=== PATIENT | male | born 1935 | race African-American/Black ===

== ENCOUNTER 2018-09-22 09:00 | Outpatient (CLI) | payer MEDICARE, MEDICAID | END 2018-09-22 23:59 | disposition home or self-care (01) | LOC: LAB.N 09:00 | PROVIDERS: ATTEND Nurse Practitioner | DX: Z12.11 Encounter for screening for malignant neoplasm of colon (principal) | CPT/HCPCS: 82274 ==

== ENCOUNTER 2018-11-08 09:29 | Outpatient (CLI) | payer MEDICARE, MEDICAID | END 2018-11-08 09:30 | disposition critical access hospital (66) | LOC: EMS 09:29 | PROVIDERS: ATTEND Surgery | DX: R06.02 Shortness of breath (principal); R05 Cough | CPT/HCPCS: A0425; A0429 ==

== ENCOUNTER 2018-11-08 09:47 | Emergency (ER) | payer MEDICARE, MEDICAID ==
[2018-11-08] MEDS ORDERED: IPRATROPIUM/ALBUTEROL 3 ML NEB INH STA (09:51)
[2018-11-08] MEDS ORDERED: predniSONE 20 MG TABLET PO STA (09:52)
--- NOTE | 2018-11-08 10:15 | ED Physician Documentation ---
PD HPI DYSPNEA - Stated complaint Stated Complaint: SOA - Chief complaint Chief Complaint: Resp - History obtained from History obtained from: Patient, EMS - History of Present Illness Timing - onset: How many days ago (2) Timing - onset during: Rest Timing - duration: Days (2) Timing - details: Gradual onset Pain level max: 0 Pain level now: 0 Inciting event(s): URI Improved by: O2, Inhaler/neb Worsened by: Exertion, Coughing Associated symptoms: Cough, Wheezing. No: Fever, Hemoptysis, Chest pain / discomfort, Palpitations, Diaphoresis Similar symptoms before: Diagnosis (Pneumonia) Recently seen: Not recently seen - Additional information Additional information: 82-year-old male with a history of COPD who presents to the emergency department with wheezing and difficulty breathing for the past 2 days. Has not had a fever but has had increased coughing. Clear sputum. Feels better after a DuoNeb treatment with EMS. Review of Systems Ten Systems: 10 systems reviewed and negative Constitutional: denies: Fever Nose: reports: Rhinorrhea / runny nose, Congestion GI: denies: Vomiting, Diarrhea Skin: denies: Rash Musculoskeletal: denies: Neck pain, Back pain Neurologic: denies: Headache PD PAST MEDICAL HISTORY - Past Medical History Past Medical History: Yes Cardiovascular: Hypertension Respiratory: COPD Endocrine/Autoimmune: Type 2 diabetes - Past Surgical History Past Surgical History: No - Present Medications Home Medications: Ambulatory Orders Medication Instructions Recorded Confirmed Doxycycline Hyclate 100 mg PO BID #20 capsule 11/08/18 predniSONE [Deltasone] 10 mg PO [id number] #42 tab 11/08/18 - Allergies Allergies/Adverse Reactions: Allergies Allergy/AdvReac Type Severity Reaction Status Date / Time No Known Drug Allergies Allergy Verified 11/08/18 09:55 - Social History Does the pt smoke?: No Smoking Status: Never smoker Does the pt drink ETOH?: Yes Does the pt have substance abuse?: No - Immunizations Immunizations are current?: No - POLST Patient has POLST: No PD ED PE NORMAL - Vitals Vital signs reviewed: Yes - General General: Alert and oriented X 3, No acute distress - HEENT HEENT: Moist mucous membranes - Neck Neck: Supple, no meningeal sign - Cardiac Cardiac: RRR - Respiratory Respiratory: Other (Bibasilar rhonchi, diffuse wheezing) - Abdomen Abdomen: Soft, Non tender, Non distended - Derm Derm: Warm and dry - Extremities Extremities: No calf tenderness / cord - Neuro Neuro: Alert and oriented X 3 Results - Vitals Vitals: Vital Signs - 24 hr 11/08/18 11/08/18 11/08/18 09:51 10:17 11:25 Temperature 36.4 C L Heart Rate 79 78 77 Respiratory 16 20 14 Rate Blood Pressure 138/88 H 130/82 H O2 Saturation 99 95 Oxygen O2 Source Room air - Rads (name of study) Chest x-ray Radiology: Prelim report reviewed, EMP read contemporaneously, See rad report (Mild groundglass and linear opacity at the lung bases, suggesting a combination of atelectasis, scarring, and/or pneumonia in the proper settings. Superimposed small amount of bronchial wall thickening may reflect airways disease. Mild enlarged cardiac silhouette size. ) PD MEDICAL DECISION MAKING - ED course Complexity details: reviewed results, re-evaluated patient, considered differential, d/w patient, d/w family ED course: 82-year-old male with what appears to be a COPD flare/likely superimposed early pneumonia on chest x-ray. Will place on doxycycline. Given steroids. Feels much better after nebulizer treatment. Speaking in full sentences. No respiratory distress. Mild wheezing. Patient is comfortable going home at this time. Patient and family counseled regarding signs and symptoms for which I believe and urgent re-evaluation would be necessary. Patient with good understanding of and agreement to plan and is comfortable going home at this time This document was made in part using voice recognition software. While efforts are made to proofread this document, sound alike and grammatical errors may occur. Departure - Departure Disposition: 01 Home, Self Care Clinical Impression: Moderate COPD (chronic obstructive pulmonary disease) Pneumonia Qualifiers: Pneumonia type: due to unspecified organism Laterality: bilateral Lung location: lower lobe of lung Qualified Code(s): J18.1 - Lobar pneumonia, un specified organism Condition: Good Instructions: ED COPD Flare, ED Pneumonia Adult Follow-Up: Hattie Malone DNP [Primary Care Provider] - Within 1 week Prescriptions: Doxycycline Hyclate 100 mg PO BID #20 capsule predniSONE [Deltasone] 10 mg PO [id number] #42 tab Comments: Take all antibiotics until gone. Return if you worsen. Follow-up with your doctor for further evaluation and care. Discharge Date/Time: 12/22/18 11:42
--- NOTE | 2018-11-08 10:54 | XRAY Report ---
Reason: cough, dyspnea Procedure Date: 11/08/2018 Accession Number: [id number] / [id number] Procedure: XR - Chest 2 View X-Ray CPT Code: 99164 FULL RESULT: EXAM: CHEST RADIOGRAPHY EXAM DATE: 11/08/2018 10:11 AM. CLINICAL HISTORY: Cough, dyspnea. COMPARISON: None. TECHNIQUE: 2 views. FINDINGS: Lungs/Pleura: Mild groundglass and linear opacity at the lung bases. Small amount of bronchial wall thickening may be superimposed. No pleural effusion. No pneumothorax. Mediastinum: Cardiac silhouette size appears mildly enlarged. Other: None. IMPRESSION: 1. Mild groundglass and linear opacity at the lung bases, suggesting a combination of atelectasis, scarring, and/or pneumonia in the proper settings. Superimposed small amount of bronchial wall thickening may reflect airways disease. 2. Mild enlarged cardiac silhouette size. RADIA
[2018-11-08] MEDS ORDERED: DOXYCYCLINE 100 MG TABLET PO STA (11:15)
[2018-11-08 11:42] VITALS: BP 130/82
== END 2018-11-08 11:42 | disposition home or self-care (01) ==
LOC: EDUNIT# → ED 09:47
DX: J44.9 Chronic obstructive pulmonary disease, unspecified (principal); J18.1 Lobar pneumonia, unspecified organism; I10 Essential (primary) hypertension; E11.9 Type 2 diabetes mellitus without complications
CPT/HCPCS: 71046; 94640; 99283; 99284; A9270; J7512

== ENCOUNTER 2019-01-20 08:09 | Outpatient (CLI) | payer MEDICARE, MEDICAID ==
[2019-01-20 14:32] LABS: BASOPHILS % (AUTO) 0.6 %; EOSINOPHILS # (AUTO) 0.1 10^3/uL (0.0-0.7); EOSINOPHILS % (AUTO) 1.4 %; HGB - HEMOGLOBIN 14.2 g/dL (14.0-18.0); LYMPHOCYTES # (AUTO) 1.6 10^3/uL (1.5-3.5); LYMPHOCYTES % (AUTO) 33.7 %; MEAN CORPUSCULAR HEMOGLOBIN 27.2 pg (27.0-31.0); MEAN CORPUSCULAR HGB CONC 32.4 g/dL (32.0-36.0); MEAN CORPUSCULAR VOLUME 84.1 fL (80.0-94.0); MEAN PLATELET VOLUME 10.3 fL (7.4-11.4); MONOCYTES # (AUTO) 0.8 10^3/uL (0.0-1.0); MONOCYTES % (AUTO) 17.8 %; NEUTROPHILS # (AUTO) 2.2 10^3/uL (1.5-6.6); NEUTROPHILS % (AUTO) 46.5 %; PLT - PLATELET COUNT 165 10^3/uL (130-450); RED BLOOD COUNT 5.21 10^6/uL (4.70-6.10); RED CELL DISTRIBUTION WIDTH 15.5 % (12.0-15.0); WHITE BLOOD COUNT 4.7 x10^3/uL (4.8-10.8)
[2019-01-20 17:05] LABS: ALBUMIN 4.2 g/dL (3.2-5.5); ALKALINE PHOSPHATASE 63 IU/L (42-121); ALT ALANINE AMINOTRANSFERASE 17 IU/L (10-60); AST ASPARTATE AMINOTRANSFERASE 21 IU/L (10-42); BUN - BLOOD UREA NITROGEN 26 mg/dL (6-20); CALCIUM 9.8 mg/dL (8.5-10.3); CARBON DIOXIDE - CO2 25 mmol/L (21-32); CHLORIDE 108 mmol/L (101-111); CHOL/HDL RATIO 3.2 (<5.0); CHOLESTEROL 156 mg/dL; CREATININE 1.2 mg/dL (0.6-1.2); GFR - MDRD 70 (>89); GLUCOSE 109 mg/dL (70-100); HDL CHOLESTEROL 49 mg/dL; LDL CHOLESTEROL,CALCULATED 89 mg/dL; LDL/HDL RATIO 1.8 (<3.6); SODIUM 143 mmol/L (135-145); TOTAL PROTEIN 8.3 g/dL (6.7-8.2); URIC ACID 8.8 mg/dL (2.6-7.2); VLDL CHOLESTEROL 18 mg/dL
[2019-01-20 17:29] LABS: HB2 TOTAL 15.5 g/dL; HEMOGLOBIN A1C 0.82 g/dL
== END 2019-01-20 23:59 | disposition home or self-care (01) ==
LOC: LAB.N 08:09
PROVIDERS: ATTEND Nurse Practitioner
DX: E11.40 Type 2 diabetes mellitus with diabetic neuropathy, unspecified (principal); I10 Essential (primary) hypertension; M1A.9XX0 Chronic gout, unspecified, without tophus (tophi)
CPT/HCPCS: 36415; 80053; 80061; 82043; 83036; 83721; 84443; 84550; 85025

== ENCOUNTER 2019-05-06 08:00 | Outpatient (CLI) | payer MEDICARE, MEDICAID ==
[2019-05-06 18:34] LABS: BASOPHILS % (AUTO) 0.7 %; EOSINOPHILS # (AUTO) 0.1 10^3/uL (0.0-0.7); EOSINOPHILS % (AUTO) 2.2 %; HGB - HEMOGLOBIN 13.3 g/dL (14.0-18.0); LYMPHOCYTES # (AUTO) 1.2 10^3/uL (1.5-3.5); LYMPHOCYTES % (AUTO) 27.1 %; MEAN CORPUSCULAR HEMOGLOBIN 26.7 pg (27.0-31.0); MEAN CORPUSCULAR HGB CONC 30.3 g/dL (32.0-36.0); MEAN PLATELET VOLUME 12.2 fL (7.4-11.4); MONOCYTES # (AUTO) 1.1 10^3/uL (0.0-1.0); MONOCYTES % (AUTO) 24.2 %; NEUTROPHILS % (AUTO) 45.4 %; PLT - PLATELET COUNT 166 10^3/uL (130-450); RED BLOOD COUNT 4.99 10^6/uL (4.70-6.10); RED CELL DISTRIBUTION WIDTH 14.1 % (12.0-15.0); WHITE BLOOD COUNT 4.5 x10^3/uL (4.8-10.8)
[2019-05-06 18:52] LABS: ALBUMIN 3.8 g/dL (3.2-5.5); ALBUMIN/GLOBULIN RATIO 0.9 (1.0-2.2); BILIRUBIN,TOTAL 0.7 mg/dL (0.2-1.0); CALCIUM 9.1 mg/dL (8.5-10.3); CREATININE 1.4 mg/dL (0.6-1.2); TOTAL PROTEIN 8.2 g/dL (6.7-8.2)
[2019-05-06 18:55] LABS: HB2 TOTAL 14.2 g/dL; HEMOGLOBIN A1C 0.68 g/dL; HEMOGLOBIN A1C % 6.5 % (4.6-6.2)
== END 2019-05-06 08:01 | disposition home or self-care (01) ==
LOC: LAB.WCP 08:00
PROVIDERS: ATTEND Physician Assistant
DX: E11.42 Type 2 diabetes mellitus with diabetic polyneuropathy (principal); I51.7 Cardiomegaly
CPT/HCPCS: 36415; 80053; 83036; 83880; 85025

== ENCOUNTER 2019-05-12 08:00 | Outpatient (CLI) | payer MEDICARE, MEDICAID ==
[2019-05-12 12:19] LABS: CALCIUM 9.1 mg/dL (8.5-10.3); CREATININE 1.6 mg/dL (0.6-1.2)
== END 2019-05-12 08:01 | disposition home or self-care (01) ==
LOC: LAB.N 08:00
PROVIDERS: ATTEND Nurse Practitioner Gerontology
DX: I51.7 Cardiomegaly (principal); R94.4 Abnormal results of kidney function studies; R60.9 Edema, unspecified; R06.00 Dyspnea, unspecified
CPT/HCPCS: 36415; 80048; 83880

== ENCOUNTER 2019-06-11 10:06 | Outpatient (CLI) | payer MEDICARE, MEDICAID ==
[2019-06-11 12:42] LABS: ALBUMIN 3.8 g/dL (3.2-5.5); ALBUMIN/GLOBULIN RATIO 0.9 (1.0-2.2); BILIRUBIN,TOTAL 0.7 mg/dL (0.2-1.0); CALCIUM 9.2 mg/dL (8.5-10.3); CREATININE 1.8 mg/dL (0.6-1.2)
== END 2019-06-11 23:59 | disposition home or self-care (01) ==
LOC: LAB.N 10:06
PROVIDERS: ATTEND Family Medicine
DX: R60.9 Edema, unspecified (principal)
CPT/HCPCS: 36415; 80053

== ENCOUNTER 2019-06-26 14:27 | Outpatient (CLI) | payer MEDICARE, MEDICAID ==
[2019-06-26 18:49] LABS: HGB - HEMOGLOBIN 14.3 g/dL (14.0-18.0); MEAN CORPUSCULAR HEMOGLOBIN 26.1 pg (27.0-31.0); MEAN CORPUSCULAR HGB CONC 30.3 g/dL (32.0-36.0); MEAN CORPUSCULAR VOLUME 86.1 fL (80.0-94.0); MEAN PLATELET VOLUME 12.5 fL (7.4-11.4); RED BLOOD COUNT 5.48 10^6/uL (4.70-6.10); RED CELL DISTRIBUTION WIDTH 13.6 % (12.0-15.0); WHITE BLOOD COUNT 4.1 x10^3/uL (4.8-10.8)
[2019-06-26 19:07] LABS: CALCIUM 9.6 mg/dL (8.5-10.3); CREATININE 1.7 mg/dL (0.6-1.2)
== END 2019-06-26 23:59 | disposition home or self-care (01) ==
LOC: LAB.N 14:27
PROVIDERS: ATTEND Family Medicine
DX: R60.9 Edema, unspecified (principal); R06.00 Dyspnea, unspecified; I10 Essential (primary) hypertension
CPT/HCPCS: 36415; 80048; 83880; 85027

== ENCOUNTER 2019-07-15 13:31 | Outpatient (CLI) | payer MEDICARE, MEDICAID ==
[~2019-07-15 13:31] MED LIST: ALBUTEROL NEB 2.5 MG/3 ML INH SCH
== END 2019-07-15 13:32 | disposition home or self-care (01) ==
LOC: RT 13:31
PROVIDERS: ATTEND Family Medicine
DX: J44.9 Chronic obstructive pulmonary disease, unspecified (principal)
CPT/HCPCS: 94060; 94729

== ENCOUNTER 2019-08-20 11:14 | Outpatient (CLI) | payer MEDICARE, MEDICAID ==
--- NOTE | 2019-08-20 12:05 | XRAY Report ---
Reason: leg pain, left Procedure Date: 08/20/2019 Accession Number: [id number] / [id number] Procedure: XRN - Femur 2V LT CPT Code: FULL RESULT: EXAM: LEFT FEMUR RADIOGRAPHY EXAM DATE: 08/20/2019 11:41 AM. CLINICAL HISTORY: Left leg pain and paresthesias. COMPARISON: None. TECHNIQUE: 2 views. FINDINGS: Bones: Normal. No fracture or bone lesion. Joints: Unremarkable left femur. Partial imaging of medial compartment and patellofemoral arthropathy of the left knee. Soft Tissues: Normal. No soft tissue swelling. IMPRESSION: No acute abnormality. RADIA
== END 2019-08-20 11:15 | disposition home or self-care (01) ==
LOC: DI.N 11:14
PROVIDERS: ATTEND Family Medicine
DX: M79.605 Pain in left leg (principal)

== ENCOUNTER 2019-12-24 08:00 | Outpatient (CLI) | payer MEDICARE, MEDICAID ==
[2019-12-24 13:05] LABS: CALCIUM 8.6 mg/dL (8.5-10.3); CREATININE 1.4 mg/dL (0.6-1.2)
[2019-12-24 13:13] LABS: CREATININE,URINE 31.8 mg/dL; HB2 TOTAL 13.6 g/dL; HEMOGLOBIN A1C 0.73 g/dL; HEMOGLOBIN A1C % 7.1 % (4.6-6.2); MICROALBUM/CREATININE RATIO,UR 12.6 ug/mg (<30.0); MICROALBUMIN,URINE 0.4 mg/dL (0-300.0)
== END 2019-12-24 23:59 | disposition home or self-care (01) ==
LOC: LAB.N 08:00
PROVIDERS: ATTEND Family Medicine
DX: E11.40 Type 2 diabetes mellitus with diabetic neuropathy, unspecified (principal)
CPT/HCPCS: 36415; 80048; 82043; 82570; 83036

== ENCOUNTER 2021-02-09 11:51 | Outpatient (CLI) | payer MEDICARE, MEDICAID ==
--- NOTE | 2021-02-10 17:18 | Ultrasound Report ---
PROCEDURE: Carotid Doppler Complete INDICATIONS: L SIDED NUMBNESS TECHNIQUE: Color and pulse Doppler interrogation was performed of both carotid systems, with image documentation and velocity measurements. COMPARISON: None available.. FINDINGS: Right side: Brachial blood pressure: 147/81 mm Hg. Common carotid artery peak systolic velocity: 90 cm/sec. Internal carotid artery peak systolic velocity: 62 cm/sec. Internal carotid artery end diastolic velocity: 5 cm/sec. External carotid artery peak systolic velocity: 70 cm/sec. ICA/CCA peak systolic ratio: 0.7 . Sims scale imaging description: Scattered plaque Percent internal carotid artery stenosis: Less than 50% stenosis . Vertebral artery: Flow direction is antegrade. Left side: Brachial blood pressure: 127/62 mm Hg. Common carotid artery peak systolic velocity: 68 cm/sec. Internal carotid artery peak systolic velocity: 64 cm/sec. Internal carotid artery end diastolic velocity: 20 cm/sec. External carotid artery peak systolic velocity: 84 cm/sec. ICA/CCA peak systolic ratio: 0.9 . Sims scale imaging description: Mild scattered plaque Percent internal carotid artery stenosis: Less than 50% . Vertebral artery: Flow direction is antegrade. IMPRESSION: Less than 50% bilateral internal carotid artery stenosis. The estimate of stenosis included in the report of the imaging study was calculated using the NASCET method Reviewed by: ANUSHKA Brizuela on 02/10/2021 5:17 PM PDT Approved by: Anurag Garcia MD on 02/10/2021 5:17 PM PDT Station ID: [id number]
== END 2021-02-09 11:52 | disposition home or self-care (01) ==
LOC: DI 11:51
PROVIDERS: ATTEND Internal Medicine
DX: R20.2 Paresthesia of skin (principal); R20.0 Anesthesia of skin; I65.23 Occlusion and stenosis of bilateral carotid arteries
CPT/HCPCS: 93880

== ENCOUNTER 2021-04-10 16:42 | Outpatient (CLI) | payer MEDICARE, MEDICAID | END 2021-04-10 16:43 | disposition home or self-care (01) | LOC: COV 16:42 | PROVIDERS: ATTEND Ophthalmology | DX: Z01.812 Encounter for preprocedural laboratory examination (principal); H25.812 Combined forms of age-related cataract, left eye; E11.9 Type 2 diabetes mellitus without complications; Z20.822 Contact with and (suspected) exposure to COVID-19 ==

== ENCOUNTER 2021-04-13 07:58 | Day surgery (SDC) | payer MEDICARE, MEDICAID ==
[~2021-04-13 07:58] MED LIST changes: -ALBUTEROL NEB 2.5 MG/3 ML INH SCH; +KETOROLAC 0.45% OPHTH DROPS ONE; +PROPARACAINE 0.5% OPHTH DROPS 15 ML ONE
[2021-04-13] MEDS ORDERED: LACTATED RINGERS 500 ML IV ONE ×2 (08:06→09:42)
[2021-04-13] MEDS ORDERED: PHENYLEPHRINE 2.5% OPHTH 2 ML DROPS LEFTEYE ONE (08:21)
[2021-04-13] MEDS ORDERED: CYCLOPENTOLATE 2% OPHTH DROPS 2 ML LEFTEYE ONE (08:21)
[2021-04-13] MEDS ORDERED: TRIAMCIN/MOXIFLOX OPHTHALMIC 0.6 ML VIAL IO ONE ×2 (08:25→09:30)
[2021-04-13] MEDS ORDERED: VANCOMYCIN OPHTHALMI 8MG/0.8ML 8 MG/0.8 ML SYRINGE IO ONE ×2 (08:26→09:30)
[2021-04-13] MEDS ORDERED: TIMOLOL 0.5% OPHTH DROPS ONE (08:26)
[2021-04-13] MEDS ORDERED: BRIMONIDINE 0.2% OPHTH DROPS 5 ML ONE (08:26)
[2021-04-13] MEDS ORDERED: EPINEPHrine 1 MG/ML AMP ONE (08:26)
[2021-04-13] MEDS ORDERED: BSS/LIDOCAINE/EPINEPHRINE 1 ML SYRINGE ONE (08:26)
--- NOTE | 2021-04-13 08:38 | ANESTHESIA ---
Pre-Anesthesia VS, & Labs - Diagnosis L senile combined cataract - Procedure L extraction cataract w/IOL Vital Signs: Temp Pulse Resp BP Pulse Ox 36.2 C L 111 H 16 129/79 95 04/13/21 08:07 04/13/21 08:07 04/13/21 08:07 04/13/21 08:07 04/13/21 08:07 Height: 5 ft 6 in Weight (kg): 113 kg Body Mass Index: 40.1 BMI Classification: Morbidly Obese - NPO >8 hours - Lab Results Lab results reviewed: Yes Home Medications and Allergies Home Medications: Ambulatory Orders Albuterol 2.5 mg INH Q4H PRN 04/12/21 Albuterol Sulfate [Proair Respiclick] 90 mcg IH PRN PRN 04/12/21 Doxazosin [Cardura] 1 mg PO DAILY 04/12/21 Furosemide [Lasix] 04/12/21 Gabapentin [Neurontin] 100 mg PO ONCE 04/12/21 Rivaroxaban [Xarelto] 15 mg PO DAILY 04/12/21 Verapamil HCl [Calan Sr] 240 mg PO DAILY 04/12/21 allopurinoL [Zyloprim] 100 mg PO DAILY 04/12/21 metFORMIN [Glucophage] 04/12/21 Albuterol 2.5 mg INH Q4H PRN 04/12/21 Albuterol Sulfate [Proair Respiclick] 90 mcg IH PRN PRN 04/12/21 Doxazosin [Cardura] 1 mg PO DAILY 04/12/21 Furosemide [Lasix] 04/12/21 Gabapentin [Neurontin] 100 mg PO ONCE 04/12/21 Rivaroxaban [Xarelto] 15 mg PO DAILY 04/12/21 Verapamil HCl [Calan Sr] 240 mg PO DAILY 04/12/21 allopurinoL [Zyloprim] 100 mg PO DAILY 04/12/21 metFORMIN [Glucophage] 04/12/21 Allergies/Adverse Reactions: Allergies Allergy/AdvReac Type Severity Reaction Status Date / Time No Known Drug Allergies Allergy Verified 11/08/18 09:55 Anes History & Medical History - Anesthetic History Anesthesia Complications: reports: No previous complications Family history of Anesthesia Complications: Denies Family history of Malignant Hyperthermia: Denies - Medical History Cardiovascular: reports: Hypertension Pulmonary: reports: COPD Gastrointestinal: reports: None Urinary: reports: None Musculoskeletal: reports: None Endocrine/Autoimmune: reports: Type 2 diabetes Skin: reports: None Smoking Status: Never smoker - Surgical History Cardiothoracic: reports: Cardiac catheterization Exam General: Alert, Oriented x3, Cooperative Dental: Other Mouth Openin Fingerbreadth Neck Mobility: Normal Mallampati classification: II Thyromental Distance: 4-6 cm Respiratory: Decreased breath sounds Cardiovascular: Other (irregular) Mental/Cognitive Status: Alert/Oriented X3, Normal for patient Cognitive Status: Within normal limits Plan Anesthesia Type: MAC (awaiting EKG for case to proceed) Consent for Procedure(s) Verified and Reviewed: Yes Code Status: Attempt Resuscitation ASA classification: 3-Severe systemic disease Is this case an emergency?: No
[2021-04-13] MEDS ORDERED: CHONDR SULF/HYALURONATE SYRINGE IO ONE (09:29)
[2021-04-13] MEDS ORDERED: BRIMONIDINE 0.2% OPHTH DROPS 5 ML OPTH ONE (09:29)
[2021-04-13] MEDS ORDERED: TIMOLOL 0.5% OPHTH DROPS OPTH ONE (09:29)
[2021-04-13] MEDS ORDERED: EPINEPHrine 1 MG/ML AMP IR ONE (09:29)
[2021-04-13] MEDS ORDERED: PROPARACAINE 0.5% OPHTH DROPS 15 ML EACHEYE ONE (09:30)
[2021-04-13] MEDS ORDERED: BSS/LIDOCAINE/EPINEPHRINE 1 ML SYRINGE IO ONE (09:30)
--- NOTE | 2021-04-13 09:49 | OPERATIVE REPORT ---
Operative Report - Other Other Information/Narrative: Date of Surgery: 04/13/21 Preop Dx: Visually significant cataract left eye. This was the first cataract surgery. Postop Dx: Same Procedure: Phacoemulsification with posterior chamber intraocular lens implant left eye Surgeon: Dr. Ajit Magallon Anesthesia: Monitored anesthesia care Complications: None Operative Indications: This is a 85-year-old M with progressive vision loss in the left eye due to 3+ nuclear sclerotic and 2+ cortical cataract. Best corrected visual acuity was 20/60 with glare to light perception vision in the left eye. Indications for surgery were: - Overall decrease in vision - Difficulty seeing words on a computer screen - Difficulty reading - Difficulty seeing words, closed captions, or game scores on TV - Difficulty seeing street signs - Difficulty with glare or bright lights in any situation The patient was consented at length concerning the risks and benefits of cataract surgery after which the patient expressed a desire to proceed with surgery. Operative Procedure: The patient was taken into OR#3 and placed under monitored anesthesia care. A surgical time-out was conducted confirming correct patient, correct procedure, and correct surgical site. The patient was given topical anesthesia and then prepped and draped in the usual sterile fashion. The eye was entered at the 6 and 3 oclock positions. Intracameral Shugarcaine was injected into the anterior chamber followed by a dispersive viscoelastic. A continuous-tear curvilinear capsulorhexis was performed. The nucleus was hydrodissected and phacoemulsified. The cortex was evacuated using automated infusion and aspiration. A cohesive viscoelastic was injected into the capsular bag and a 23 diopter intraocular lens was inserted into the bag. Infusion and aspiration were used to evacuate the viscoelastic materials from the eye. The wounds were hydrated and the eye inflated to physiologic pressure using balanced salt solution. Approximately 0.25ml of a mixture of triamcinolone and moxifloxacin was injected trans-sclerally into the vitreous in the inferotemporal quadrant using a 30 gauge cannula. An additional 0.55ml of a mixture of triamcinolone, moxifloxacin, and vancomycin was injected subconjunctivally in the superior quadrant for infection and inflammation prophylaxis. Wound integrity was checked with Weck-Rita sponges. The patient was taken from the operating room in good condition and given post-op instructions.
[2021-04-13 09:53] VITALS: BP 120/66
--- NOTE | 2021-04-13 10:09 | ANESTHESIA POST OP EVALUATION ---
Anesthesia Post Eval - Post Anesthesia Eval Vitals: Last Vital Signs Temp 36.5 C 04/13/21 09:39 Pulse 92 04/13/21 09:50 Resp 18 04/13/21 09:50 BP 120/66 04/13/21 09:50 Pulse Ox 95 04/13/21 09:50 CV Function Including HR & BP: Stable Pain Control: Satisfactory Nausea & Vomiting: Negative Mental Status: Baseline Respiratory Status: Airway Patent Hydration Status: Satisfactory Anesthesia Complications: None
== END 2021-04-13 07:59 | disposition home or self-care (01) ==
LOC: SDS 07:58
PROVIDERS: ATTEND Ophthalmology
DX: E11.36 Type 2 diabetes mellitus with diabetic cataract (principal); H25.812 Combined forms of age-related cataract, left eye; I25.10 Atherosclerotic heart disease of native coronary artery without angina pectoris; I10 Essential (primary) hypertension; M10.9 Gout, unspecified; E66.01 Morbid (severe) obesity due to excess calories; Z68.41 Body mass index [BMI] 40.0-44.9, adult; Z79.84 Long term (current) use of oral hypoglycemic drugs; Z79.01 Long term (current) use of anticoagulants; Z87.891 Personal history of nicotine dependence; Z79.899 Other long term (current) drug therapy
CPT/HCPCS: 66984; 93005; A9270; J3490; J7120

== ENCOUNTER 2021-05-08 17:31 | Outpatient (CLI) | payer MEDICARE, MEDICAID | END 2021-05-08 17:32 | disposition home or self-care (01) | LOC: COV 17:31 | PROVIDERS: ATTEND Ophthalmology | DX: Z01.812 Encounter for preprocedural laboratory examination (principal); H25.811 Combined forms of age-related cataract, right eye; E11.9 Type 2 diabetes mellitus without complications; Z20.822 Contact with and (suspected) exposure to COVID-19 ==

== ENCOUNTER 2021-05-11 06:45 | Day surgery (SDC) | payer MEDICARE, MEDICAID ==
[~2021-05-11 06:45] MED LIST changes: +CYCLOPENTOLATE 1% OPHTH DROPS 2 ML ONE; +PHENYLEPHRINE 2.5% OPHTH 2 ML DROPS ONE
[2021-05-11] MEDS ORDERED: VANCOMYCIN OPHTHALMI 8MG/0.8ML 8 MG/0.8 ML SYRINGE IO ONE ×2 (07:01→08:14)
[2021-05-11] MEDS ORDERED: TIMOLOL 0.5% OPHTH DROPS ONE (07:01)
[2021-05-11] MEDS ORDERED: TRIAMCIN/MOXIFLOX OPHTHALMIC 0.6 ML VIAL IO ONE ×2 (07:01→08:13)
[2021-05-11] MEDS ORDERED: BRIMONIDINE 0.2% OPHTH DROPS 5 ML ONE (07:01)
[2021-05-11] MEDS ORDERED: BSS/LIDOCAINE/EPINEPHRINE 1 ML SYRINGE ONE (07:01)
[2021-05-11] MEDS ORDERED: EPINEPHrine 1 MG/ML AMP ONE (07:01)
[2021-05-11] MEDS ORDERED: MIDAZOLAM 2 MG/2 ML VIAL ONE (07:05)
--- NOTE | 2021-05-11 07:30 | ANESTHESIA ---
Pre-Anesthesia VS, & Labs - Diagnosis Right senile combined cataract - Procedure right cataract extraction with lens implant Vital Signs: Temp Pulse Resp BP Pulse Ox 36.2 C L 60 16 146/87 H 94 05/11/21 06:55 05/11/21 06:55 05/11/21 06:55 05/11/21 06:55 05/11/21 06:55 Height: 5 ft 6 in Weight (kg): 113 kg Body Mass Index: 40.1 BMI Classification: Morbidly Obese - NPO >8 hours - Lab Results Current Lab Results: Laboratory Tests 05/11/21 07:15: POC Whole Bld Glucose 105 H Home Medications and Allergies Home Medications: Ambulatory Orders Linagliptin [Tradjenta] 5 mg PO DAILY 05/10/21 Albuterol 2.5 mg INH Q4H PRN 04/12/21 Albuterol Sulfate [Proair Respiclick] 90 mcg IH PRN PRN 04/12/21 Doxazosin [Cardura] 4 mg PO DAILY 04/12/21 Gabapentin [Neurontin] 400 mg PO ONCE 04/12/21 Rivaroxaban [Xarelto] 15 mg PO DAILY 04/12/21 Verapamil HCl [Calan Sr] 240 mg PO DAILY 04/12/21 allopurinoL [Zyloprim] 100 mg PO DAILY 04/12/21 metFORMIN [Glucophage] mg 04/12/21 Linagliptin [Tradjenta] 5 mg PO DAILY 05/10/21 Allergies/Adverse Reactions: Allergies Allergy/AdvReac Type Severity Reaction Status Date / Time No Known Drug Allergies Allergy Verified 11/08/18 09:55 Anes History & Medical History - Anesthetic History Anesthesia Complications: reports: No previous complications - Medical History Cardiovascular: reports: Hypertension, Atrial fibrillation Pulmonary: reports: COPD Musculoskeletal: reports: Gout Endocrine/Autoimmune: reports: Type 2 diabetes Smoking Status: Never smoker - Surgical History Eyes Ears Nose Throat (EENT): reports: Cataracts Exam General: Alert Dental: WNL Neck Mobility: Reduced Mallampati classification: II Respiratory: Lungs clear Cardiovascular: Regular rate Plan Anesthesia Type: MAC Consent for Procedure(s) Verified and Reviewed: Yes Code Status: Attempt Resuscitation ASA classification: 2-Mild systemic disease Is this case an emergency?: No
[2021-05-11] MEDS ORDERED: fentaNYL 100 MCG/2 ML VIAL ONE (07:57)
[2021-05-11] MEDS ORDERED: TIMOLOL 0.5% OPHTH DROPS OPTH ONE (08:12)
[2021-05-11] MEDS ORDERED: CHONDR SULF/HYALURONATE SYRINGE IO ONE (08:12)
[2021-05-11] MEDS ORDERED: BRIMONIDINE 0.2% OPHTH DROPS 5 ML OPTH ONE (08:12)
[2021-05-11] MEDS ORDERED: EPINEPHrine 1 MG/ML AMP IR ONE (08:12)
[2021-05-11] MEDS ORDERED: BSS/LIDOCAINE/EPINEPHRINE 1 ML SYRINGE IO ONE (08:13)
[2021-05-11] MEDS ORDERED: PROPARACAINE 0.5% OPHTH DROPS 15 ML EACHEYE ONE (08:14)
[2021-05-11] MEDS ORDERED: LACTATED RINGERS 900 ML IV ONE (08:24)
--- NOTE | 2021-05-11 08:33 | OPERATIVE REPORT ---
Operative Report - Procedure Note Complications: Date of Surgery: 05/11/21 Preop Dx: Visually significant cataract right eye. Cataract surgery was performed in the left eye on 04/13/2021. Postop Dx: Same Procedure: Phacoemulsification with posterior chamber intraocular lens implant right eye Surgeon: Dr. Ajit Magallon Anesthesia: Monitored anesthesia care Complications: None Operative Indications: This is a 85-year-old M with progressive vision loss in the right eye due to 3+ nuclear sclerotic and 2+ cortical cataract. Best corrected visual acuity was 20/60 with glare to light perception vision in the right eye. Indications for surgery were: - Overall decrease in vision - Difficulty seeing words on a computer screen - Difficulty reading - Difficulty seeing words, closed captions, or game scores on TV - Difficulty seeing street signs - Difficulty with glare or bright lights in any situation - Difficulty tracking a golf ball The patient was consented at length concerning the risks and benefits of cataract surgery after which the patient expressed a desire to proceed with surgery. Operative Procedure: The patient was taken into OR#3 and placed under monitored anesthesia care. A surgical time-out was conducted confirming correct patient, correct procedure, and correct surgical site. The patient was given topical anesthesia and then prepped and draped in the usual sterile fashion. The eye was entered at the 6 and 3 oclock positions. Intracameral Shugarcaine was injected into the anterior chamber followed by a dispersive viscoelastic. A continuous-tear curvilinear capsulorhexis was performed. The nucleus was hydrodissected and phacoemulsified. The cortex was evacuated using automated infusion and aspiration. A cohesive viscoelastic was injected into the capsular bag and a 23.0 diopter intraocular lens was inserted into the bag. Infusion and aspiration were used to evacuate the viscoelastic materials from the eye. The wounds were hydrated and the eye inflated to physiologic pressure using balanced salt solution. Approximately 0.25ml of a mixture of triamcinolone and moxifloxacin was injected trans-sclerally into the vitreous in the inferotemporal quadrant using a 30 gauge cannula. An additional 0.55ml of a mixture of triamcinolone, moxifloxacin, and vancomycin was injected stephens bconjunctivally in the superior quadrant for infection and inflammation prophylaxis. Wound integrity was checked with Weck-Rita sponges. The patient was taken from the operating room in good condition and given post-op instructions.
[2021-05-11 08:59] VITALS: BP 128/90
--- NOTE | 2021-05-11 09:06 | ANESTHESIA POST OP EVALUATION ---
Anesthesia Post Eval - Post Anesthesia Eval Vitals: Last Vital Signs Temp 36.4 C L 05/11/21 08:35 Pulse 85 05/11/21 08:35 Resp 18 05/11/21 08:35 BP 128/90 H 05/11/21 08:35 Pulse Ox 95 05/11/21 08:35 CV Function Including HR & BP: Stable Pain Control: Satisfactory Nausea & Vomiting: Negative Mental Status: Baseline Respiratory Status: Airway Patent Hydration Status: Satisfactory Anesthesia Complications: None
== END 2021-05-11 06:46 | disposition home or self-care (01) ==
LOC: SDS 06:45
PROVIDERS: ATTEND Ophthalmology
DX: E11.36 Type 2 diabetes mellitus with diabetic cataract (principal); H25.811 Combined forms of age-related cataract, right eye; Z79.84 Long term (current) use of oral hypoglycemic drugs; I48.91 Unspecified atrial fibrillation; J44.9 Chronic obstructive pulmonary disease, unspecified; I25.10 Atherosclerotic heart disease of native coronary artery without angina pectoris; I10 Essential (primary) hypertension; Z87.891 Personal history of nicotine dependence; Z98.42 Cataract extraction status, left eye; E66.01 Morbid (severe) obesity due to excess calories; Z68.41 Body mass index [BMI] 40.0-44.9, adult
CPT/HCPCS: 66984; A9270; J3490; J7120

== ENCOUNTER 2021-09-07 09:55 | Outpatient (CLI) | payer MEDICARE, MEDICAID ==
[2021-09-07 10:38] LABS: BASOPHILS % (AUTO) 0.7 %; EOSINOPHILS % (AUTO) 1.2 %; HCT - HEMATOCRIT 45.5 % (42.0-52.0); HGB - HEMOGLOBIN 14.2 g/dL (14.0-18.0); MEAN CORPUSCULAR HEMOGLOBIN 26.2 pg (27.0-31.0); MEAN CORPUSCULAR HGB CONC 31.2 g/dL (32.0-36.0); MEAN CORPUSCULAR VOLUME 83.8 fL (80.0-94.0); MEAN PLATELET VOLUME 12.8 fL (7.4-11.4); MONOCYTES % (AUTO) 18.3 %; NEUTROPHILS % (AUTO) 48.6 %; PLT - PLATELET COUNT 139 10^3/uL (130-450); RED BLOOD COUNT 5.43 10^6/uL (4.70-6.10); RED CELL DISTRIBUTION WIDTH 13.9 % (12.0-15.0); WHITE BLOOD COUNT 4.2 x10^3/uL (4.8-10.8)
[2021-09-07 10:42] LABS: ABNORMAL LYMPHS % (MANUAL) 0 %
[2021-09-07 10:59] LABS: ALBUMIN 4.1 g/dL (3.2-5.5); ALBUMIN/GLOBULIN RATIO 1.1 (1.0-2.2); ALKALINE PHOSPHATASE 71 IU/L (42-121); ALT ALANINE AMINOTRANSFERASE 24 IU/L (10-60); AST ASPARTATE AMINOTRANSFERASE 24 IU/L (10-42); BILIRUBIN,TOTAL 0.5 mg/dL (0.2-1.0); BUN - BLOOD UREA NITROGEN 23 mg/dL (6-20); CALCIUM 9.5 mg/dL (8.5-10.3); CARBON DIOXIDE - CO2 26 mmol/L (21-32); CHLORIDE 108 mmol/L (101-111); CHOL/HDL RATIO 2.9 (<5.0); CHOLESTEROL 158 mg/dL; CREATININE 1.3 mg/dL (0.6-1.2); GFR - MDRD 64 (>89); GLUCOSE 99 mg/dL (70-100); HDL CHOLESTEROL 54 mg/dL; LDL CHOLESTEROL,CALCULATED 92 mg/dL; LDL/HDL RATIO 1.7 (<3.6); MAGNESIUM 1.5 mg/dL (1.7-2.8); SODIUM 144 mmol/L (135-145); TOTAL PROTEIN 7.9 g/dL (6.7-8.2); TRIGLYCERIDES 61 mg/dL; URIC ACID 8.2 mg/dL (2.6-7.2); VLDL CHOLESTEROL 12 mg/dL
[2021-09-07 11:06] LABS: BAND NEUTROPHILS % (MANUAL) 1 %; DIFFERENTIAL COMMENT MANUAL DIFFERENTIAL; EOSINOPHILS # (MANUAL) 0.1 10^3/uL (0-0.7); LYMPHOCYTES # (MANUAL) 1.6 10^3/uL (1.5-3.5); LYMPHOCYTES % (MANUAL) 39 %; MONOCYTES # (MANUAL) 0.7 10^3/uL (0.0-1.0); NEUTROPHILS # (MANUAL) 1.8 10^3/uL (1.5-6.6); PLATELET ESTIMATE, MANUAL NORMAL (130-450,000) (NORMAL); PLATELET MORPHOLOGY 1+ LARGE PLATELETS (NORMAL); RBC MORPHOLOGY (MULTIPLE) NORMAL APPEARANCE (NORMAL)
[2021-09-07 11:08] LABS: THYROID STIMULATING HORMONE 1.18 uIU/mL (0.34-5.60)
[2021-09-07 11:31] LABS: PSA TOTAL 1.04 ng/mL (0.000-2.000)
[2021-09-07 12:48] LABS: ESTIMATED AVERAGE GLUCOSE 128 mg/dL (70-100); HEMOGLOBIN A1c% 6.1 % (4.27-6.07)
== END 2021-09-07 09:56 | disposition home or self-care (01) ==
LOC: LAB 09:55
PROVIDERS: ATTEND Internal Medicine
DX: Z00.00 Encounter for general adult medical examination without abnormal findings (principal); I12.9 Hypertensive chronic kidney disease with stage 1 through stage 4 chronic kidney disease, or unspecified chronic kidney disease; L29.9 Pruritus, unspecified; M10.9 Gout, unspecified; N18.9 Chronic kidney disease, unspecified; R06.00 Dyspnea, unspecified; R20.2 Paresthesia of skin; R25.2 Cramp and spasm; R60.9 Edema, unspecified; Z13.6 Encounter for screening for cardiovascular disorders; Z79.899 Other long term (current) drug therapy; Z12.5 Encounter for screening for malignant neoplasm of prostate; J44.9 Chronic obstructive pulmonary disease, unspecified
CPT/HCPCS: 36415; 80053; 80061; 82607; 83036; 83721; 83735; 83880; 84153; 84443; 84550; 85025

== ENCOUNTER 2021-09-22 13:52 | Outpatient (CLI) | payer MEDICARE, MEDICAID ==
--- NOTE | 2021-09-22 14:50 | XRAY Report ---
PROCEDURE: Chest 2 View X-Ray INDICATIONS: WHEEZING TECHNIQUE: 2 view(s) of the chest. COMPARISON: None. FINDINGS: SUPPORT DEVICES: None. LUNGS/PLEURA: Blunting of the right costophrenic sulcus, compatible with pleural fluid. Prominent int erstitial markings. 7 mm nodular density in the left midlung zone, which may reflect a granuloma or p ulmonary nodule. MEDIASTINUM: The cardiac silhouette is enlarged, partially exaggerated by technique. BONES/SOFT TISSUES: No acute abnormality. IMPRESSION: 1.Pulmonary edema pattern with small right pleural effusion. 2.7 mm nodular density in the left midlung zone, which may reflect a granuloma or pulmonary nodule. C onsider CT imaging based on the patient's risk factors for lung cancer. Reviewed by: Severino Gonzalez MD on 09/22/2021 2:49 PM PDT Approved by: Severino Gonzalez MD on 09/22/2021 2:49 PM PDT Station ID: [id number]
== END 2021-09-22 13:53 | disposition home or self-care (01) ==
LOC: DI.N 13:52 → MERGE 13:52 → DI.N 13:53
PROVIDERS: ATTEND Internal Medicine
DX: J81.1 Chronic pulmonary edema (principal); J90 Pleural effusion, not elsewhere classified; R91.8 Other nonspecific abnormal finding of lung field; R06.2 Wheezing
CPT/HCPCS: 36415; 83880

== ENCOUNTER 2021-09-22 14:01 | Outpatient (CLI) | payer MEDICARE, MEDICAID | END 2021-09-22 14:02 | disposition home or self-care (01) | LOC: LAB.N 14:01 → MERGE 14:01 → LAB.N 14:02 | PROVIDERS: ATTEND Internal Medicine | DX: R06.2 Wheezing (principal) | CPT/HCPCS: 36415; 83880 ==

== ENCOUNTER 2022-03-05 09:44 | Outpatient (CLI) | payer MEDICARE, MEDICAID ==
[2022-03-05 12:25] LABS: BASOPHILS % (AUTO) 0.7 %; EOSINOPHILS # (AUTO) 0.1 10^3/uL (0.0-0.7); EOSINOPHILS % (AUTO) 1.4 %; HCT - HEMATOCRIT 46.9 % (42.0-52.0); LYMPHOCYTES # (AUTO) 1.3 10^3/uL (1.5-3.5); LYMPHOCYTES % (AUTO) 31.7 %; MEAN CORPUSCULAR VOLUME 81.3 fL (80.0-94.0); MEAN PLATELET VOLUME 13.8 fL (7.4-11.4); MONOCYTES % (AUTO) 22.8 %; NEUTROPHILS # (AUTO) 1.8 10^3/uL (1.5-6.6); NEUTROPHILS % (AUTO) 43.2 %; PLT - PLATELET COUNT 130 10^3/uL (130-450); RED BLOOD COUNT 5.77 10^6/uL (4.70-6.10); RED CELL DISTRIBUTION WIDTH 13.2 % (12.0-15.0); WHITE BLOOD COUNT 4.2 x10^3/uL (4.8-10.8)
[2022-03-05 12:40] LABS: CREATININE,URINE 61.5 mg/dL; MICROALBUM/CREATININE RATIO,UR 89.4 ug/mg (<30.0); MICROALBUMIN,URINE 5.5 mg/dL (0-300.0)
[2022-03-05 12:45] LABS: THYROID STIMULATING HORMONE 1.69 uIU/mL (0.34-5.60)
[2022-03-05 12:49] LABS: ALBUMIN 3.6 g/dL (3.2-5.5); ALBUMIN/GLOBULIN RATIO 0.8 (1.0-2.2); ALKALINE PHOSPHATASE 71 IU/L (42-121); ALT ALANINE AMINOTRANSFERASE 24 IU/L (10-60); AST ASPARTATE AMINOTRANSFERASE 24 IU/L (10-42); BILIRUBIN,TOTAL 0.8 mg/dL (0.2-1.0); BUN - BLOOD UREA NITROGEN 23 mg/dL (6-20); CALCIUM 9.4 mg/dL (8.5-10.3); CARBON DIOXIDE - CO2 24 mmol/L (21-32); CHLORIDE 105 mmol/L (101-111); CHOL/HDL RATIO 3.1 (<5.0); CHOLESTEROL 157 mg/dL; CREATININE 1.3 mg/dL (0.6-1.2); GFR - MDRD 64 (>89); GLUCOSE 116 mg/dL (70-100); HDL CHOLESTEROL 51 mg/dL; LDL CHOLESTEROL,CALCULATED 91 mg/dL; LDL/HDL RATIO 1.8 (<3.6); SODIUM 138 mmol/L (135-145); TOTAL PROTEIN 8.3 g/dL (6.7-8.2); TRIGLYCERIDES 77 mg/dL; VLDL CHOLESTEROL 15 mg/dL
[2022-03-05 13:14] LABS: BILIRUBIN,URINE NEGATIVE (NEGATIVE); GLUCOSE, URINE (UA) NEGATIVE (NEGATIVE); KETONES,URINE (UA) NEGATIVE (NEGATIVE); LEUKOCYTE ESTERASE, URINE NEGATIVE (NEGATIVE); NITRITE,URINE NEGATIVE (NEGATIVE); OCCULT BLOOD,URINE NEGATIVE (NEGATIVE); PH,URINE 5.5 PH (5.0-7.5); PROTEIN,URINE NEGATIVE (NEGATIVE); UROBILINOGEN,URINE 0.2 (NORMAL) E.U./dL (NORMAL)
[2022-03-05 13:16] LABS: CLARITY,URINE CLEAR (CLEAR)
[2022-03-05 13:43] LABS: SLIDE REVIEW? Indicated
== END 2022-03-05 09:45 | disposition home or self-care (01) ==
LOC: LAB.N 09:44
PROVIDERS: ATTEND Nurse Practitioner
DX: I11.9 Hypertensive heart disease without heart failure (principal); E78.2 Mixed hyperlipidemia; R32 Unspecified urinary incontinence; E11.42 Type 2 diabetes mellitus with diabetic polyneuropathy
CPT/HCPCS: 36415; 80053; 80061; 81001; 81003; 81599; 82043; 82570; 83036; 83721; 84443; 85025; 87086

== ENCOUNTER 2022-03-21 22:15 | Outpatient (CLI) | payer MEDICARE, MEDICAID | END 2022-03-21 22:16 | disposition critical access hospital (66) | LOC: EMS 22:15 | DX: R06.00 Dyspnea, unspecified (principal); R06.2 Wheezing; I10 Essential (primary) hypertension; R00.0 Tachycardia, unspecified | CPT/HCPCS: A0425; A0427 ==

== ENCOUNTER 2022-03-21 22:30 | Emergency (ER) | payer MEDICARE, MEDICAID ==
--- NOTE | 2022-03-21 22:41 | ED Physician Documentation ---
PD HPI DYSPNEA - Stated complaint Stated Complaint: SOA - History obtained from History obtained from: Patient, EMS - History of Present Illness Timing - onset: Enter time (18:00), Today Timing - onset during: Rest Timing - details: Abrupt onset Pain level max: 0 Pain level now: 0 Improved by: Rest Associated symptoms: Cough, Wheezing, Bilateral edema (chronic, not worse than usual). No: Fever, Chest pain / discomfort, Palpitations Similar symptoms before: Diagnosis (COPD) Recently seen: Not recently seen - Additional information Additional information: BIBA for dyspnea, onset approximately 6 PM tonight while at rest. COPD but not oxygen dependent. c/o nonproductive cough. Denies fevers. He is COVID vaccinated without booster. Has been using albuterol today without adequate improvement. Given duoneb by EMS en route with improvement. Review of Systems Constitutional: reports: Reviewed and negative Throat: denies: Sore throat Cardiac: reports: Pedal edema (chronic). denies: Chest pain / pressure, Palpitations Respiratory: reports: Reviewed and negative GI: reports: Reviewed and negative Neurologic: reports: Reviewed and negative PD PAST MEDICAL HISTORY - Past Medical History Cardiovascular: Hypertension Respiratory: COPD Endocrine/Autoimmune: Type 2 diabetes - Past Surgical History Past Surgical History: No - Present Medications Home Medications: Ambulatory Orders Medication Instructions Recorded Confirmed Albuterol 2.5 mg INH Q4H PRN 04/12/21 03/21/22 Albuterol Sulfate [Proair 90 mcg IH PRN PRN 04/12/21 03/21/22 Respiclick] Doxazosin [Cardura] 4 mg PO DAILY 04/12/21 03/21/22 Gabapentin [Neurontin] 400 mg PO ONCE 04/12/21 03/21/22 Rivaroxaban [Xarelto] 15 mg PO DAILY 04/12/21 03/21/22 Verapamil HCl [Calan Sr] 240 mg PO DAILY 04/12/21 03/21/22 allopurinoL [Zyloprim] 100 mg PO DAILY 04/12/21 03/21/22 Linagliptin [Tradjenta] 5 mg PO DAILY 05/10/21 03/21/22 Furosemide [Lasix] 40 mg PO DAILY 03/21/22 03/21/22 predniSONE [Deltasone] 40 mg PO DAILY 4 Days #8 tablet 03/22/22 - Allergies Allergies/Adverse Reactions: Allergies Allergy/AdvReac Type Severity Reaction Status Date / Time No Known Drug Allergies Allergy Verified 09/27/21 12:59 - Social History Does the pt smoke?: No Smoking Status: Never smoker Does the pt drink ETOH?: Yes Does the pt have substance abuse?: No - Immunizations Immunizations are current?: No - POLST Patient has POLST: No PD ED PE NORMAL - Vitals Vital signs reviewed: Yes - General General: Alert and oriented X 3, No acute distress, Well developed/nourished - HEENT HEENT: Moist mucous membranes, Pharynx benign - Neck Neck: Supple, no meningeal sign - Cardiac Cardiac: No murmur - Respiratory Respiratory: No respiratory distress, Other (trace end-expiratory wheezing mid- lung chase bilaterally but good air movement) - Abdomen Abdomen: Soft, Non tender, Non distended - Derm Derm: Normal color, Warm and dry - Neuro Neuro: Alert and oriented X 3 PD ED PE EXPANDED - Cardiac Cardiac: Tachy, Irregularly irregular - Extremities Extremities: Pedal edema bilateral (1+) Results - Vitals Vitals: Vital Signs - 24 hr 03/21/22 03/21/22 03/21/22 22:39 22:44 23:13 Temperature 36.6 C Heart Rate 110 H 111 H 102 H Respiratory 25 H 20 21 Rate Blood Pressure 118/79 167/148 H O2 Saturation 95 95 100 03/21/22 03/22/22 03/22/22 23:30 00:00 00:24 Temperature Heart Rate 105 H 109 H 105 H Respiratory 20 26 H 22 Rate Blood Pressure 156/73 H 156/75 H O2 Saturation 96 96 96 03/22/22 03/22/22 03/22/22 00:30 01:00 01:18 Temperature 37 C Heart Rate 117 H 96 96 Respiratory 19 19 18 Rate Blood Pressure 148/79 H 141/75 H 127/90 H O2 Saturation 95 96 95 Oxygen O2 Source Room air - EKG (time done) No standard instances Rate: Rate (enter#) (111), Tachy Rhythm: Sinus tachycardia [place]: LAD, Anterior hemiblock Intervals: Normal GA QRS: Normal Ischemia: Normal ST segments Other comments: Other comments (frequent PACs (on monitor, he is mostly atrial fibrillation but some sinus beats noted)) - Labs Labs: Laboratory Tests 03/21/22 03/21/2203/21/22 00:01 00:01 23:17 WBC 7.2 RBC 5.71 Hgb 14.9 Hct 47.8 MCV 83.7 MCH 26.1 L MCHC 31.2 L RDW 13.2 Plt Count 135 MPV 11.7 H Neut # (Auto) 4.9 Lymph # (Auto) 1.2 L Chambers # (Auto) 1.1 H Eos # (Auto) 0.0 Baso # (Auto) 0.0 Absolute Nucleated RBC 0.00 Nucleated RBC % 0.0 Sodium 142 Potassium 4.7 Chloride 110 Carbon Dioxide 22 Anion Gap 10.0 BUN 20 Creatinine 1.5 H Estimated GFR (MDRD) 54 L Glucose 149 H Calcium 8.8 Total Bilirubin 0.4 AST 20 ALT 17 Alkaline Phosphatase 75 Troponin I High Sens B-Natriuretic Peptide 109 H Total Protein 8.2 Albumin 3.9 Globulin 4.3 H Albumin/Globulin Ratio 0.9 L Lipase 68 H Nasal Adenovirus (PCR) Nasal B. parapertussis DNA (PCR) Nasal Coronavir 229E PCR Nasal Coronavir HKU1 PCR Nasal Coronavir NL63 PCR Nasal Coronavir OC43 PCR Nasal Enterovir/Rhinovir PCR Nasal Influenza B PCR Nasal Influenza A PCR Nasal Parainfluen 1 PCR Nasal Parainfluen 2 PCR Nasal Parainfluen 3 PCR Nasal Parainfluen 4 PCR Nasal RSV (PCR) Nasal B.pertussis DNA PCR Nasal C.pneumoniae (PCR) Vijay Human Metapneumo PCR Nasal M.pneumoniae (PCR) Nasal SARS-CoV-2 (PCR) 03/21/22 03/21/22 23:17 23:17 WBC RBC Hgb Hct MCV MCH MCHC RDW Plt Count MPV Neut # (Auto) Lymph # (Auto) Chambers # (Auto) Eos # (Auto) Baso # (Auto) Absolute Nucleated RBC Nucleated RBC % Sodium Potassium Chloride Carbon Dioxide Anion Gap BUN Creatinine Estimated GFR (MDRD) Glucose Calcium Total Bilirubin AST ALT Alkaline Phosphatase Troponin I High Sens 22.5 H* B-Natriuretic Peptide Total Protein Albumin Globulin Albumin/Globulin Ratio Lipase Nasal Adenovirus (PCR) NOT DETECTED Nasal B. parapertussis DNA (PCR) NOT DETECTED Nasal Coronavir 229E PCR NOT DETECTED Nasal Coronavir HKU1 PCR NOT DETECTED Nasal Coronavir NL63 PCR NOT DETECTED Nasal Coronavir OC43 PCR NOT DETECTED Nasal Enterovir/Rhinovir PCR NOT DETECTED Nasal Influenza B PCR NOT DETECTED Nasal Influenza A PCR NOT DETECTED Nasal Parainfluen 1 PCR NOT DETECTED Nasal Parainfluen 2 PCR NOT DETECTED Nasal Parainfluen 3 PCR NOT DETECTED Nasal Parainfluen 4 PCR NOT DETECTED Nasal RSV (PCR) NOT DETECTED Nasal B.pertussis DNA PCR NOT DETECTED Nasal C.pneumoniae (PCR) NOT DETECTED Vijay Human Metapneumo PCR NOT DETECTED Nasal M.pneumoniae (PCR) NOT DETECTED Nasal SARS-CoV-2 (PCR) NOT DETECTED - Rads (name of study) chest xray Radiology: Prelim report reviewed, See rad report PD MEDICAL DECISION MAKING - ED course Complexity details: reviewed old records, reviewed results, re-evaluated patient, considered differential, d/w patient ED course: c/o dyspnea with PMHx including COPD. He is not oxygen dependent at home. He has a dry cough , no acute/concerning findings on CXR and WBC normal (also afebrile), so doubt acute infectious process. He has mildly elevated hs-cTn but no chest c/o (chest pain/pressure/squeezing/tightness/heaviness) and no findings on EKG s/o ischemia/infarction. He has mild tachycardia throughout his stay although he has also received multiple albuterol nebs. 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 His pulse ox is 96-100% room air with good pleth, no respiratory distress and speaking full sentences. He is given an albuterol neb in ED and 125mg solu-medrol in ED. Mildly elevated creatinine is c/w his baseline. On reexamination after abuterol , solu-medrol, and tests resulted, his lungs are CTA bilaterally with good air flow and he says he feels much better and is comfortable with discharge home. Results reviewed with patient, return precautions discussed. At this time, appears to be COPD exacerbation without complication. Rx for prednisone x 4 days transmitted electronically to his pharmacy of choice Departure - Departure Disposition: 01 Home, Self Care Clinical Impression: COPD exacerbation Condition: Good Instructions: ED COPD Flare Follow-Up: Ester Olson ARNP [Primary Care Provider] - Prescriptions: predniSONE [Deltasone] 40 mg PO DAILY 4 Days #8 tablet Comments: A prescription for prednisone (steroid) has been electronically submitted to [facility] pharmacy in [place]. This is to be taken once per day for four days. You were given a dose of steroid (intravenously) in the emergency department. You can take the first dose of the steroid at any time when you fill the prescription today, and then take it around the same time of day until finished with the prescription. Discharge Date/Time: 03/22/22 01:18
[2022-03-21] MEDS ORDERED: methylPREDNISolone SUCCINATE 125 MG/2 ML VIAL IVP STA (23:00)
[2022-03-21] MEDS ORDERED: ALBUTEROL NEB 2.5 MG/3 ML INH STA (23:00)
[2022-03-21 23:42] LABS: ALBUMIN 3.9 g/dL (3.2-5.5); ALBUMIN/GLOBULIN RATIO 0.9 (1.0-2.2); BILIRUBIN,TOTAL 0.4 mg/dL (0.2-1.0); CALCIUM 8.8 mg/dL (8.5-10.3); CREATININE 1.5 mg/dL (0.6-1.2); POTASSIUM 4.7 mmol/L (3.5-5.0); TOTAL PROTEIN 8.2 g/dL (6.7-8.2)
[2022-03-22 00:06] LABS: BASOPHILS % (AUTO) 0.3 %; EOSINOPHILS % (AUTO) 0.4 %; HCT - HEMATOCRIT 47.8 % (42.0-52.0); HGB - HEMOGLOBIN 14.9 g/dL (14.0-18.0); LYMPHOCYTES # (AUTO) 1.2 10^3/uL (1.5-3.5); MEAN CORPUSCULAR HEMOGLOBIN 26.1 pg (27.0-31.0); MEAN CORPUSCULAR HGB CONC 31.2 g/dL (32.0-36.0); MEAN CORPUSCULAR VOLUME 83.7 fL (80.0-94.0); MEAN PLATELET VOLUME 11.7 fL (7.4-11.4); MONOCYTES # (AUTO) 1.1 10^3/uL (0.0-1.0); NEUTROPHILS # (AUTO) 4.9 10^3/uL (1.5-6.6); NEUTROPHILS % (AUTO) 68.2 %; PLT - PLATELET COUNT 135 10^3/uL (130-450); RED BLOOD COUNT 5.71 10^6/uL (4.70-6.10); RED CELL DISTRIBUTION WIDTH 13.2 % (12.0-15.0); WHITE BLOOD COUNT 7.2 x10^3/uL (4.8-10.8)
[2022-03-22 00:22] LABS: B. PARAPERTUSSIS- RESP PCR PAN NOT DETECTED; B. PERTUSSIS- RESP PCR PANEL NOT DETECTED; C. PNEUMONIAE- RESP PCR PANEL NOT DETECTED; CORONAVIRUS 229E-RESP PCR NOT DETECTED; CORONAVIRUS HKU1-RESP PCR NOT DETECTED; CORONAVIRUS NL63-RESP PCR NOT DETECTED; CORONAVIRUS OC43-RESP PCR NOT DETECTED; HUMAN METAPNEUMOVIRUS NOT DETECTED; INFLUENZA A- RESP PCR PANEL NOT DETECTED; INFLUENZA B - RESP PCR PANEL NOT DETECTED; M. PNEUMONIAE- RESP PCR PANEL NOT DETECTED; PARAINFLUENZA VIRUS 1 NOT DETECTED; PARAINFLUENZA VIRUS 2 NOT DETECTED; PARAINFLUENZA VIRUS 3 NOT DETECTED; PARAINFLUENZA VIRUS 4 NOT DETECTED; RHINOVIRUS/ENTEROVIRUS NOT DETECTED; RSV- RESP PCR PANEL NOT DETECTED; SARS-CoV-2 -RESP PCR PANEL NOT DETECTED
--- NOTE | 2022-03-22 00:33 | XRAY Report ---
PROCEDURE: Chest 2 View X-Ray INDICATIONS: dyspnea, cough TECHNIQUE: 2 views of the chest. COMPARISON: 09/22/21. FINDINGS: Surgical changes and devices: None. Lungs and pleura: There is mild blunting of the lateral costophrenic angle is redemonstrated bilater ally likely representing pleural thickening and less likely small pleural effusions. No evidence of p neumothorax. There is hyperinflation of the lungs with flattening of the hemidiaphragms compatible CO PD. Linear opacities are redemonstrated in the lung bases, similar in appearance to the prior study s uggestive of atelectasis or scarring. Mediastinum: Mediastinal contours are unchanged. Heart size is normal. Bones and chest wall: No suspicious bony abnormalities. Soft tissues appear unremarkable. IMPRESSION: 1. Findings compatible with COPD redemonstrated. 2. Linear opacities redemonstrated bases likely representing atelectasis or scarring given similar ap pearance over time. 3. Blunting of the costophrenic angles redemonstrated likely reflect pleural thickening and less like ly small chronic pleural effusions. Reviewed by: Charli Holland MD on 03/22/2022 12:31 AM PDT Approved by: Charli Holland MD on 03/22/2022 12:31 AM PDT Station ID: [id number]
[2022-03-22 01:20] VITALS: BP 127/90
== END 2022-03-22 01:18 | disposition home or self-care (01) ==
LOC: EDUNIT# → ED 22:30
DX: J44.1 Chronic obstructive pulmonary disease with (acute) exacerbation (principal); I10 Essential (primary) hypertension; E11.9 Type 2 diabetes mellitus without complications; I48.91 Unspecified atrial fibrillation; Z79.01 Long term (current) use of anticoagulants; Z20.822 Contact with and (suspected) exposure to COVID-19
CPT/HCPCS: 36415; 80053; 83690; 83880; 84484; 85025; 87633; 93005; 94640; 96374; 99284

== ENCOUNTER 2022-04-03 08:42 | Outpatient (CLI) | payer MEDICARE, MEDICAID ==
--- NOTE | 2022-04-03 12:28 | CT Report ---
PROCEDURE: CHEST WO INDICATIONS: MULTIPLE LUNG NODULES TECHNIQUE: Noncontrast 1mm axial images were acquired from the pulmonary apices to the posterior costophrenic an gles. Axial 5 mm soft tissue kernel reconstructions were performed as well as 8 mm axial MIP and cor onal and sagittal 5 mm reformations. For radiation dose reduction, the following was used: automate d exposure control, adjustment of mA and/or kV according to patient size. COMPARISON: Chest radiographs dated 09/22/2021 and 03/21/2022 FINDINGS: Image quality: Mild image degradation secondary to respiratory motion artifact. Lungs and pleura: Small right and trace left bilateral pleural effusions with associated compressive atelectasis. Additionally, there is a oval, rounded opacity in the subpleural region of the right low er lobe (image 219/series 4) with associated displacement and convergence of vessels and airways comp atible with rounded atelectasis. There is a calcified 8 mm granuloma noted in the posterior, inferio r margin of the left upper lobe compatible with nodule seen on comparison radiographs. There is a sub pleural nodular density measuring 1.1 x 0.5 cm immediately adjacent to the medial pleura of the left lower lobe which may represent a pulmonary nodule versus atelectasis. This is best seen on image 205/ series 4. Mild upper lobe predominant centrilobular pulmonary emphysema. No acute airspace disease id entified. No pneumothorax. Central and peripheral airways are patent and normal in caliber. Mediastinum: Heart size is normal. No pericardial effusion. No mediastinal adenopathy by size crit eria. Multiple scattered calcified mediastinal lymph nodes compatible with progress as disease. Thor acic aorta and central pulmonary arteries are normal in size. Scattered atherosclerotic calcification s of the coronary arteries and thoracic aorta. Esophagus is normal in caliber. No hiatal hernia. Bones and chest wall: No suspicious bony lesions. No acute vertebral body compression fractures. M ultilevel thoracic spondylitic changes. No axillary or supraclavicular adenopathy by size criteria. The thyroid is normal in size and there are no incidental findings. Abdomen: Visualized upper abdominal solid organs and bowel loops appear normal in the absence of con trast. IMPRESSION: 1. Small right and trace left bilateral pleural effusions with associated compressive atelectasis. Th ere is a focus of rounded atelectasis involving the posterior right lower lobe. Nodular density seen on comparison radiographs correlates with a calcified 8 mm pulmonary granuloma in the inferior margin of the left upper lobe. Multiple stigmata of prior granulomatous disease. 2. Small focus of compressive atelectasis versus pulmonary nodule measuring 1.1 x 0.5 cm abutting the posterior, medial left lower lobe. Recommend follow-up chest CT in 3 months to document stability ve rsus resolution. 3. Atherosclerosis. 4. Mild upper lobe predominant centrilobular pulmonary emphysema. 5. Multilevel spondylosis of the imaged spine. CLINICAL RECOMMENDATION STATEMENTS: In patients <35 years with an ITN detected on CT, MRI, or extrathyroidal ultrasound, the Committee re commends further evaluation with dedicated thyroid ultrasound if the nodule is "e1 cm and has no susp icious imaging features, and if the patient has normal life expectancy. In patients "e35 years with an ITN detected on CT, MRI, or extrathyroidal ultrasound, the Committee r ecommends further evaluation with dedicated thyroid ultrasound if the nodule is "e1.5 cm and has no s uspicious imaging features, and if the patient has normal life expectancy. (ACR, 2014) Reviewed by: Gui Quiros MD on 04/03/2022 12:27 PM PDT Approved by: Gui Quiros MD on 04/03/2022 12:27 PM PDT Station ID: [id number]
== END 2022-04-03 08:43 | disposition home or self-care (01) ==
LOC: DI 08:42
PROVIDERS: ATTEND Nurse Practitioner
DX: J90 Pleural effusion, not elsewhere classified (principal); J98.11 Atelectasis; R91.8 Other nonspecific abnormal finding of lung field; J43.2 Centrilobular emphysema; I70.90 Unspecified atherosclerosis; M47.814 Spondylosis without myelopathy or radiculopathy, thoracic region; J84.10 Pulmonary fibrosis, unspecified

== ENCOUNTER 2022-06-06 18:12 | Outpatient (CLI) | payer MEDICARE, MEDICAID | END 2022-06-06 18:13 | disposition critical access hospital (66) | LOC: EMS 18:12 | DX: M79.661 Pain in right lower leg (principal) | CPT/HCPCS: A0425; A0429 ==

== ENCOUNTER 2022-06-06 18:30 | Emergency (ER) | payer MEDICARE, MEDICAID ==
--- NOTE | 2022-06-06 19:27 | ED Physician Documentation ---
History of Present Illness - Stated complaint Stated Complaint: R CALF PX - Chief complaint Chief Complaint: Ext Problem - History obtained from History obtained from: Patient, Family - History of Present Illness Timing: How many days ago (3) Pain level max: 6 Pain level now: 5 - Additonal information Additional information: Patient is an 86-year-old male who presents to the emergency department with right lower extremity swelling. This been ongoing for the past 3 to 4 days. Increasing pain in the posterior calf as well. No history of DVT. He does have a history of COPD, atrial fibrillation and diabetes. Does not recall any injury. Review of Systems Constitutional: denies: Fever, Chills Respiratory: denies: Cough GI: denies: Vomiting, Constipation, Diarrhea Skin: denies: Rash Musculoskeletal: denies: Neck pain, Back pain Neurologic: denies: Headache PD PAST MEDICAL HISTORY - Past Medical History Past Medical History: Yes Cardiovascular: Hypertension Respiratory: COPD Endocrine/Autoimmune: Type 2 diabetes Musculoskeletal: Gout - Past Surgical History Past Surgical History: No - Present Medications Home Medications: Ambulatory Orders Medication Instructions Recorded Confirmed Albuterol 2.5 mg INH Q4H PRN 04/12/21 03/21/22 Albuterol Sulfate [Proair 90 mcg IH PRN PRN 04/12/21 03/21/22 Respiclick] Doxazosin [Cardura] 4 mg PO DAILY 04/12/21 03/21/22 Gabapentin [Neurontin] 400 mg PO ONCE 04/12/21 03/21/22 Rivaroxaban [Xarelto] 15 mg PO DAILY 04/12/21 03/21/22 Verapamil HCl [Calan Sr] 240 mg PO DAILY 04/12/21 03/21/22 allopurinoL [Zyloprim] 100 mg PO DAILY 04/12/21 03/21/22 Linagliptin [Tradjenta] 5 mg PO DAILY 05/10/21 03/21/22 Furosemide [Lasix] 40 mg PO DAILY 03/21/22 03/21/22 predniSONE [Deltasone] 40 mg PO DAILY 4 Days #8 tablet 03/22/22 Doxycycline Monohydrate 100 mg PO BID #20 cap 06/06/22 Oxycodone HCl/Acetaminophen 1 - 2 each PO Q6H PRN #10 tablet 06/06/22 [Percocet 5-325 mg Tablet] - Allergies Allergies/Adverse Reactions: Allergies Allergy/AdvReac Type Severity Reaction Status Date / Time No Known Drug Allergies Allergy Verified 06/06/22 18:35 - Social History Does the pt smoke?: No Smoking Status: Never smoker Does the pt drink ETOH?: Yes Does the pt have substance abuse?: No - Immunizations Immunizations are current?: No - POLST Patient has POLST: No PD ED PE NORMAL - Vitals Vital signs reviewed: Yes - General General: Alert and oriented X 3, No acute distress - HEENT HEENT: Moist mucous membranes - Neck Neck: Supple, no meningeal sign - Derm Derm: Warm and dry - Extremities Extremities: Other (B LE edema, R >L. mild tenderness to the mid posterior gastrocnemius. NVI. mild erythema. ) - Neuro Neuro: Alert and oriented X 3 Results - Vitals Vitals: Vital Signs - 24 hr 06/06/22 06/06/22 18:33 21:58 Temperature 37.8 C Heart Rate 90 90 Respiratory 14 14 Rate Blood Pressure 105/84 H 118/64 O2 Saturation 93 94 Oxygen O2 Source Room air - Rads (name of study) duplex US RLE Radiology: Final report received, EMP read contemporaneously, See rad report (No DVT) PD MEDICAL DECISION MAKING - ED course Complexity details: reviewed results, re-evaluated patient, considered differential, d/w patient ED course: 86-year-old male with bilateral lower extremity swelling, right greater than left. Appears to have a mild cellulitis posteriorly. No abscess. No DVT. We will place on an antibiotic for home and have him follow-up with his doctor for further care. Pain well controlled. Ambulating well. Patient and family counseled regarding signs and symptoms for which I believe and urgent re- evaluation would be necessary. Patient with good understanding of and agreement to plan and is comfortable going home at this time This document was made in part using voice recognition software. While efforts are made to proofread this document, sound alike and grammatical errors may occur. Departure - Departure Disposition: 01 Home, Self Care Clinical Impression: Peripheral edema Cellulitis Qualifiers: Site of cellulitis: extremity Site of cellulitis of extremity: lower extremity Laterality: left Qualified Code(s): L03.116 - Cellulitis of left lower limb Condition: Good Instructions: ED Infec Skin Cellulitis, ED Leg Swelling Unilateral Follow-Up: Olson,Ester S, RECYCLING MANAGER [Primary Care Provider] - Within 1 week Prescriptions: Doxycycline Monohydrate 100 mg PO BID #20 cap Oxycodone HCl/Acetaminophen [Percocet 5-325 mg Tablet] 1 - 2 each PO Q6H PRN #10 tablet PRN Reason: pain Comments: Your prescriptions were sent to [facility] [place]. Please take all antibiotics until gone. Please follow-up with your doctor for further care. Your ultrasound does not show any evidence of a blood clot tonight. There does appear to be evidence of a mild infection in your calf. This should improve in the next 24 to 48 hours. I am prescribing a short course of narcotic pain medication for you. These are potentially dangerous and addictive medications that should be used carefully. These medications may constipate you. Take an pyef-zuu-uybcaes stool softener (docusate) twice daily with plenty of water while taking these medications. If you go 24 hours without a bowel movement, take [id number] miralax, per package instructions. Do not drink or drive while taking these medications. If you received narcotic or sedating medications while in the emergency department, do not drive for 24 hours. Store this medication in a safe, secure place and out of reach of children. It is a violation of federal law to give or sell this medication to another person or to use in a manner other than prescribed. The ED will not refill narcotic prescriptions, including prescriptions lost or stolen. To dispose of unwanted medications: 1. [facility] at [address] in [place] has a medication drop box. They accept prescription medications (in pill form) Saturday through Saturday 9:00 a.m. to 5:00 p.m. 2. The [facility] [employer] accepts prescription medications (in pill form only) for disposal year round. Call for more information. 3. Contact the [facility] for the next [facility] sponsored prescription drug collection event. , [phone], or [phone]; Discharge Date/Time: 06/06/22 21:59
[2022-06-06] MEDS ORDERED: oxyCODONE 5 MG TABLET PO STA ×2 (19:42→21:31)
[2022-06-06] MEDS ORDERED: DOXYCYCLINE 100 MG TABLET PO STA (21:31)
[2022-06-06 21:59] VITALS: BP 118/64
--- NOTE | 2022-06-06 23:45 | Ultrasound Report ---
PROCEDURE: Duplex Ext Veins Right INDICATIONS: RLE swelling and pain TECHNIQUE: Real-time imaging, as well as color and pulse Doppler interrogation, were performed of the lower extr emity deep veins from the inguinal ligament to the popliteal fossa. COMPARISON: None. FINDINGS: The deep veins are normally compressible, and free of intraluminal thrombus. Color and pu lse Doppler demonstrate normal phasic intraluminal flow. There is normal augmentation response to di stal compression maneuver. IMPRESSION: 1. No evidence of deep venous thrombosis in the right lower extremity. Reviewed by: Charli Arredondo MD on 06/06/2022 11:43 PM PDT Approved by: Charli Arredondo MD on 06/06/2022 11:43 PM PDT Station ID: [id number]
== END 2022-06-06 21:59 | disposition home or self-care (01) ==
LOC: EDBD → EDUNIT# → ED 18:30
DX: L03.116 Cellulitis of left lower limb (principal); I10 Essential (primary) hypertension
CPT/HCPCS: 93971; 99284; A9270

== ENCOUNTER 2022-07-19 07:34 | Outpatient (CLI) | payer MEDICARE, MEDICAID | END 2022-07-19 07:35 | disposition home or self-care (01) | LOC: DI 07:34 | PROVIDERS: ATTEND Internal Medicine Cardiovascular Disease | DX: I48.0 Paroxysmal atrial fibrillation (principal); I25.10 Atherosclerotic heart disease of native coronary artery without angina pectoris; I27.20 Pulmonary hypertension, unspecified; I77.810 Thoracic aortic ectasia; I51.7 Cardiomegaly | CPT/HCPCS: 93306 ==

== ENCOUNTER 2022-10-22 09:08 | Outpatient (CLI) | payer MEDICARE, MEDICAID ==
--- NOTE | 2022-10-22 14:53 | XRAY Report ---
PROCEDURE: Chest 2 View X-Ray INDICATIONS: SHORTNESS OF BREATH TECHNIQUE: 2 views of the chest were acquired. COMPARISON: CT chest 04/03/2022, chest radiographs 03/21/2022, 09/22/2021. FINDINGS: Surgical changes and devices: None. Lungs and pleura: Small right pleural effusion, not substantially changed. Trace left pleural effusio n and/or pleural thickening, also similar to before. Mild patchy bibasilar pulmonary opacities nonspe cific. Left midlung granuloma redemonstrated. No pneumothorax. Mediastinum: Cardiac silhouette is enlarged. Mediastinal contours are similar to before. Bones and chest wall: No suspicious bony abnormalities. Soft tissues appear unremarkable. IMPRESSION: 1. Similar small right pleural effusion and trace left pleural effusion and/or pleural thickening. 2. Nonspecific bibasilar opacities are present, left lung base worse than right. Left basilar opaciti es are increased compared to before, could represent aspiration or pneumonia but atelectasis is also possible. Reviewed by: Roland Ruggiero MD on 10/22/2022 2:52 PM PST Approved by: Roland Ruggiero MD on 10/22/2022 2:52 PM PST Station ID: [id number]
== END 2022-10-22 09:09 | disposition home or self-care (01) ==
LOC: DI 09:08
PROVIDERS: ATTEND Nurse Practitioner
DX: J90 Pleural effusion, not elsewhere classified (principal); R91.8 Other nonspecific abnormal finding of lung field

== ENCOUNTER 2023-01-05 10:06 | Outpatient (CLI) | payer MEDICARE, MEDICAID ==
[2023-01-05 18:47] LABS: BASOPHILS % (AUTO) 0.7 %; EOSINOPHILS # (AUTO) 0.1 10^3/uL (0.0-0.7); EOSINOPHILS % (AUTO) 1.4 %; HCT - HEMATOCRIT 43.4 % (42.0-52.0); HGB - HEMOGLOBIN 12.8 g/dL (14.0-18.0); LYMPHOCYTES # (AUTO) 0.8 10^3/uL (1.5-3.5); LYMPHOCYTES % (AUTO) 19.5 %; MEAN CORPUSCULAR HGB CONC 29.5 g/dL (32.0-36.0); MEAN CORPUSCULAR VOLUME 84.9 fL (80.0-94.0); MEAN PLATELET VOLUME 11.7 fL (7.4-11.4); MONOCYTES # (AUTO) 0.6 10^3/uL (0.0-1.0); MONOCYTES % (AUTO) 13.7 %; NEUTROPHILS # (AUTO) 2.7 10^3/uL (1.5-6.6); NEUTROPHILS % (AUTO) 64.5 %; PLT - PLATELET COUNT 174 10^3/uL (130-450); RED BLOOD COUNT 5.11 10^6/uL (4.70-6.10); RED CELL DISTRIBUTION WIDTH 14.6 % (12.0-15.0); WHITE BLOOD COUNT 4.2 x10^3/uL (4.8-10.8)
[2023-01-05 18:59] LABS: ESTIMATED AVERAGE GLUCOSE 151 mg/dL (70-100); HEMOGLOBIN A1c% 6.9 % (4.27-6.07)
[2023-01-05 19:13] LABS: ALBUMIN 3.4 g/dL (3.2-5.5); ALBUMIN/GLOBULIN RATIO 0.7 (1.0-2.2); BILIRUBIN,TOTAL 0.6 mg/dL (0.2-1.0); CALCIUM 8.9 mg/dL (8.5-10.3); CREATININE 1.5 mg/dL (0.6-1.2); POTASSIUM 4.8 mmol/L (3.5-5.0); TOTAL PROTEIN 8.5 g/dL (6.7-8.2)
== END 2023-01-05 10:07 | disposition home or self-care (01) ==
LOC: LAB.N 10:06
PROVIDERS: ATTEND Nurse Practitioner
DX: E11.42 Type 2 diabetes mellitus with diabetic polyneuropathy (principal); R06.02 Shortness of breath
CPT/HCPCS: 36415; 80053; 83036; 83880; 85025

== ENCOUNTER 2023-01-08 09:22 | Outpatient (CLI) | payer MEDICARE, MEDICAID | END 2023-01-08 23:59 | disposition critical access hospital (66) | LOC: EMS 09:22 | DX: R06.03 Acute respiratory distress (principal); I48.91 Unspecified atrial fibrillation | CPT/HCPCS: A0425; A0429 ==

== ENCOUNTER 2023-01-08 09:42 | Inpatient (IN) | payer MEDICARE, MEDICAID ==
[2023-01-08] MEDS ORDERED: DEXAMETHASONE 10 MG/ML VIAL IVP STA (10:18)
[2023-01-08] MEDS ORDERED: IPRATROPIUM/ALBUTEROL 3 ML NEB INH STA (10:18)
--- NOTE | 2023-01-08 10:18 | ED Physician Documentation ---
PD HPI DYSPNEA - Stated complaint Stated Complaint: SOA - Chief complaint Chief Complaint: Resp - History obtained from History obtained from: Patient, Family (Daughter) - History of Present Illness Timing - onset: How many days ago (4-5) Timing - onset during: Rest Timing - duration: Days Timing - details: Gradual onset, Still present Inciting event(s): URI Improved by: O2, Rest Worsened by: Exertion, Coughing Associated symptoms: Cough, Wheezing, Palpitations Similar symptoms before: Diagnosis (COPD,) Recently seen: Clinic - Additional information Additional information: Jd Doyle is an 87-year-old male with a history of COPD pulmonary hypertension and some granulomatous lung disease. Over the past 4 to 5 days he is developed a cough and increasing exertional dyspnea. He was seen in the clinic this morning with an O2 sat of 80% on room air and atrial fibrillation with rapid ventricular response. He is brought to the hospital by ambulance with oxygen running with marked improvement and reduction in his heart rate. The patient has not coughed up any phlegm he does state that he is felt that he has had a fever. He is recently had to decrease his use of diuretic secondary to a flare in gout. Review of Systems Constitutional: reports: Fever Nose: reports: Congestion Cardiac: denies: Chest pain / pressure Respiratory: reports: Dyspnea, Cough, Wheezing GI: reports: Diarrhea. denies: Nausea, Vomiting : denies: Dysuria, Frequency Skin: denies: Rash Musculoskeletal: reports: Extremity swelling. denies: Neck pain, Back pain, Extremity pain Neurologic: denies: Generalized weakness, Focal weakness, Numbness PD PAST MEDICAL HISTORY - Past Medical History Past Medical History: Yes Cardiovascular: Hypertension Respiratory: COPD Endocrine/Autoimmune: Type 2 diabetes Musculoskeletal: Gout - Past Surgical History Past Surgical History: No - Present Medications Home Medications: Ambulatory Orders Medication Instructions Recorded Confirmed Albuterol 2.5 mg INH Q4H PRN 04/12/21 01/08/23 Doxazosin [Cardura] 4 mg PO DAILY 04/12/21 01/08/23 Gabapentin [Neurontin] 400 mg PO ONCE 04/12/21 01/08/23 Rivaroxaban [Xarelto] 15 mg PO DAILY 04/12/21 01/08/23 Verapamil HCl [Calan Sr] 240 mg PO DAILY 04/12/21 01/08/23 Linagliptin [Tradjenta] 5 mg PO DAILY 05/10/21 01/08/23 Fluticasone Propion/Salmeterol 1 puffs INH BID 01/08/23 01/08/23 [Fluticasone-Salmeterol 250-50] Lisinopril [Zestril] 10 mg PO DAILY 01/08/23 01/08/23 Rosuvastatin Calcium [Crestor] 20 mg PO DAILY 01/08/23 01/08/23 - Allergies Allergies/Adverse Reactions: Allergies Allergy/AdvReac Type Severity Reaction Status Date / Time No Known Drug Allergies Allergy Verified 01/08/23 10:03 - Social History Does the pt smoke?: No Smoking Status: Never smoker Does the pt drink ETOH?: Yes Does the pt have substance abuse?: No - Immunizations Immunizations are current?: No - POLST Patient has POLST: No PD ED PE NORMAL - Vitals Vital signs reviewed: Yes - General General: Well developed/nourished, Other (tachypneic at rest) - HEENT HEENT: Atraumatic, PERRL, EOMI - Neck Neck: Supple, no meningeal sign, No bony TTP - Cardiac Cardiac: No murmur, Other (tachy and regular ) - Respiratory Respiratory: Other (tachypneic with bibasilar rales ) - Abdomen Abdomen: Soft, Non tender - Back Back: No CVA TTP, No spinal TTP - Derm Derm: Normal color, Warm and dry, No rash - Extremities Extremities: No deformity, Other (pitting edema bilaterally is 1+) - Psych Psych: Normal mood, Normal affect Results - Vitals Vitals: Vital Signs - 24 hr 01/08/23 01/08/23 01/08/23 09:58 10:00 10:03 Temperature 36.7 C Heart Rate 108 H Respiratory 28 H Rate Blood Pressure 131/64 H O2 Saturation 86 L 86 L 98 If not protocol 4 : Oxygen Flow, liters/minute 01/08/23 01/08/23 01/08/23 10:18 10:33 11:03 Temperature Heart Rate 96 102 H 115 H Respiratory 20 18 21 Rate Blood Pressure 106/48 L 112/74 O2 Saturation 100 96 If not protocol 4 2 : Oxygen Flow, liters/minute 01/08/23 12:48 Temperature Heart Rate 100 Respiratory 18 Rate Blood Pressure 112/68 O2 Saturation 93 If not protocol : Oxygen Flow, liters/minute Oxygen O2 Source Nasal cannula Oxygen Flow Rate 4 - EKG (time done) 1031 Rate: Rate (enter#) (97) Rhythm: NSR [place]: LAD Ischemia: Normal ST segments Compare to prior EKG: Changed from prior EKG (SPT 03-21-22 rate has slowed) Computer interpretation: Agree with computer - Labs Labs: Laboratory Tests 01/08/23 01/08/23 01/08/23 10:40 10:40 10:40 WBC 4.5 L RBC 4.83 Hgb 12.0 L Hct 40.0 L MCV 82.8 MCH 24.8 L MCHC 30.0 L RDW 14.6 Plt Count 163 MPV 11.3 Neut # (Auto) 3.1 Lymph # (Auto) 0.6 L [place] # (Auto) 0.7 Eos # (Auto) 0.0 Baso # (Auto) 0.0 Absolute Nucleated RBC 0.00 Nucleated RBC % 0.0 Sodium 142 Potassium 4.7 Chloride 109 Carbon Dioxide 25 Anion Gap 8.0 BUN 25 H Creatinine 1.5 H Estimated GFR (MDRD) 54 L Glucose 125 H Calcium 9.1 Total Bilirubin 0.4 AST 24 ALT 25 Alkaline Phosphatase 67 Troponin I High Sens 30.2 H* B-Natriuretic Peptide Total Protein 7.7 Albumin 3.1 L Globulin 4.6 H Albumin/Globulin Ratio 0.7 L Lipase 51 Nasal Adenovirus (PCR) Nasal B. parapertussis DNA (PCR) Nasal Coronavir 229E PCR Nasal Coronavir HKU1 PCR Nasal Coronavir NL63 PCR Nasal Coronavir OC43 PCR Nasal Enterovir/Rhinovir PCR Nasal Influenza B PCR Nasal Influenza A PCR Nasal Parainfluen 1 PCR Nasal Parainfluen 2 PCR Nasal Parainfluen 3 PCR Nasal Parainfluen 4 PCR Nasal RSV (PCR) Nasal B.pertussis DNA PCR Nasal C.pneumoniae (PCR) Vijay Human Metapneumo PCR Nasal M.pneumoniae (PCR) Nasal SARS-CoV-2 (PCR) 01/08/23 01/08/23 10:40 10:40 WBC RBC Hgb Hct MCV MCH MCHC RDW Plt Count MPV Neut # (Auto) Lymph # (Auto) [place] # (Auto) Eos # (Auto) Baso # (Auto) Absolute Nucleated RBC Nucleated RBC % Sodium Potassium Chloride Carbon Dioxide Anion Gap BUN Creatinine Estimated GFR (MDRD) Glucose Calcium Total Bilirubin AST ALT Alkaline Phosphatase Troponin I High Sens B-Natriuretic Peptide 189 H Total Protein Albumin Globulin Albumin/Globulin Ratio Lipase Nasal Adenovirus (PCR) NOT DETECTED Nasal B. parapertussis DNA (PCR) NOT DETECTED Nasal Coronavir 229E PCR NOT DETECTED Nasal Coronavir HKU1 PCR NOT DETECTED Nasal Coronavir NL63 PCR NOT DETECTED Nasal Coronavir OC43 PCR NOT DETECTED Nasal Enterovir/Rhinovir PCR NOT DETECTED Nasal Influenza B PCR NOT DETECTED Nasal Influenza A PCR NOT DETECTED Nasal Parainfluen 1 PCR NOT DETECTED Nasal Parainfluen 2 PCR NOT DETECTED Nasal Parainfluen 3 PCR NOT DETECTED Nasal Parainfluen 4 PCR NOT DETECTED Nasal RSV (PCR) NOT DETECTED Nasal B.pertussis DNA PCR NOT DETECTED Nasal C.pneumoniae (PCR) NOT DETECTED Vijay Human Metapneumo PCR NOT DETECTED Nasal M.pneumoniae (PCR) NOT DETECTED Nasal SARS-CoV-2 (PCR) NOT DETECTED - Rads (name of study) chest Radiology: Prelim report reviewed (Impression: Cardiomegaly, moderate vascular congestion and bibasilar pleural effusions with associated atelectasis or infiltrate.), EMP read indepedently, See rad report Procedures - IVC sono (time) 1015 Bedside IVC sono: IVC measures (cm) (2.13), IVC collapsed c insp (cm) (2.13), High CVP PD Medical Decision Making - ED course Complexity details: reviewed old records, reviewed results, re-evaluated patient, considered differential, d/w patient, d/w family Reviewed Lab Results: We evaluated laboratory test including complete blood cell count with a mildly low white blood cell count of 4.5 hemoglobin and hematocrit were mildly low at 12 and 40 the usual for this patient being 14 and 45. The chemistry panel shows chronic renal insufficiency unchanged from previous over the past year with BUN of 25 and creatinine 1.5 liver functions were normal electrolytes were normal a high-sensitivity troponin was obtained with a minimally elevated level at 30.2 BNP was 189. I do not believe there is evidence to suggest NSTEMI. ED course: 87-year-old male presents to the emergency department with progressive dyspnea found in the clinic be hypoxic with room air sat of 80%. Here in the emergency department the patient is found to have what appears to be pulmonary edema on his chest x-ray and he has supporting evidence to suggest elevated central venous pressure with a plethoric inferior vena cava measuring 2.1 cm. He is treated here in the emergency department with a DuoNeb treatment and 40 mg of Lasix intravenously. The hospitalist is consulted for admission. There is minimal elevation in the troponin and BNP. The patient does respond to treatments. He has improvement with oxygen saturation with the application of oxygen. A respiratory viral panel is negative. Departure - Departure Disposition: [facility] DC/Xfer Clinical Impression: Moderate COPD (chronic obstructive pulmonary disease) Congestive heart failure Qualifiers: Heart failure type: unspecified Heart failure chronicity: acute on chronic Qualified Code(s): I50.9 - Heart failure, unspecified Condition: Stable
[2023-01-08] MEDS ORDERED: FUROSEMIDE 40 MG/4 ML VIAL IVP STA (10:28)
--- NOTE | 2023-01-08 10:37 | XRAY Report ---
PROCEDURE: Chest 1 View X-Ray INDICATIONS: Short of breath TECHNIQUE: One view of the chest was acquired. COMPARISON: 10/22/2022 FINDINGS: Surgical changes and devices: None. Lungs and pleura: No pleural effusions or pneumothorax. Lungs are clear. Mediastinum: Heart size is enlarged. Moderate vascular congestion present. Obscuration both hemidiap hragms associated with atelectasis and or infiltrate Bones and chest wall: No suspicious bony lesions. Overlying soft tissues appear unremarkable. IMPRESSION: Cardiomegaly, moderate vascular congestion and bibasilar pleural effusions with associated atelectasi s and or infiltrate Reviewed by: Demetri Madrid MD on 01/08/2023 9:36 AM [facility] Approved by: Demetri Madrid MD on 01/08/2023 9:36 AM [facility] Station ID: [id number]
[2023-01-08 10:49] LABS: BASOPHILS % (AUTO) 0.4 %; EOSINOPHILS % (AUTO) 0.4 %; LYMPHOCYTES # (AUTO) 0.6 10^3/uL (1.5-3.5); LYMPHOCYTES % (AUTO) 13.9 %; MEAN CORPUSCULAR HEMOGLOBIN 24.8 pg (27.0-31.0); MEAN CORPUSCULAR VOLUME 82.8 fL (80.0-94.0); MEAN PLATELET VOLUME 11.3 fL (7.4-11.4); MONOCYTES # (AUTO) 0.7 10^3/uL (0.0-1.0); MONOCYTES % (AUTO) 16.4 %; NEUTROPHILS # (AUTO) 3.1 10^3/uL (1.5-6.6); NEUTROPHILS % (AUTO) 68.7 %; PLT - PLATELET COUNT 163 10^3/uL (130-450); RED BLOOD COUNT 4.83 10^6/uL (4.70-6.10); RED CELL DISTRIBUTION WIDTH 14.6 % (12.0-15.0); WHITE BLOOD COUNT 4.5 x10^3/uL (4.8-10.8)
[2023-01-08 11:01] LABS: ALBUMIN 3.1 g/dL (3.2-5.5); ALBUMIN/GLOBULIN RATIO 0.7 (1.0-2.2); BILIRUBIN,TOTAL 0.4 mg/dL (0.2-1.0); CALCIUM 9.1 mg/dL (8.5-10.3); CREATININE 1.5 mg/dL (0.6-1.2); POTASSIUM 4.7 mmol/L (3.5-5.0); TOTAL PROTEIN 7.7 g/dL (6.7-8.2)
[2023-01-08 11:48] LABS: B. PARAPERTUSSIS- RESP PCR PAN NOT DETECTED; B. PERTUSSIS- RESP PCR PANEL NOT DETECTED; C. PNEUMONIAE- RESP PCR PANEL NOT DETECTED; CORONAVIRUS 229E-RESP PCR NOT DETECTED; CORONAVIRUS HKU1-RESP PCR NOT DETECTED; CORONAVIRUS NL63-RESP PCR NOT DETECTED; CORONAVIRUS OC43-RESP PCR NOT DETECTED; HUMAN METAPNEUMOVIRUS NOT DETECTED; INFLUENZA A- RESP PCR PANEL NOT DETECTED; INFLUENZA B - RESP PCR PANEL NOT DETECTED; M. PNEUMONIAE- RESP PCR PANEL NOT DETECTED; PARAINFLUENZA VIRUS 1 NOT DETECTED; PARAINFLUENZA VIRUS 2 NOT DETECTED; PARAINFLUENZA VIRUS 3 NOT DETECTED; PARAINFLUENZA VIRUS 4 NOT DETECTED; RHINOVIRUS/ENTEROVIRUS NOT DETECTED; RSV- RESP PCR PANEL NOT DETECTED; SARS-CoV-2 -RESP PCR PANEL NOT DETECTED
[2023-01-08] MEDS ORDERED: ONDANSETRON 4 MG/2 ML VIAL IVP PRN (13:10)
--- NOTE | 2023-01-08 14:43 | PHARMACY PROGRESS NOTE ---
- Best Possible Medication History Admit Date and Time: 01/08/23 1310 Processed by: Nursing Medication History completed: Yes Secondary Source(s): Insurance records As the person ultimately responsible for medication therapy, providers are able to order a medication from an existing home medication list in [facility] via the "Reconcile Routine" prior to Confirmation of that medication by client support manager. Such practice is discouraged except when the physician, in their clinical judgment, deems that a medical need exists for a medication without regard to previous use.
[2023-01-08] MEDS: IPRATROPIUM/ALBUTEROL 3 ML NEB INH SCH ×2 (14:44→18:43)
[2023-01-08] MEDS: methylPREDNISolone SUCCINATE 40 MG/ML VIAL IVP SCH ×2 (15:13→21:15)
[2023-01-08] MEDS: ACETAMINOPHEN 325 MG TABLET PO PRN ×2 (15:13→19:38)
[2023-01-08] MEDS: FUROSEMIDE 40 MG/4 ML VIAL IVP SCH (15:13)
[2023-01-08] MEDS ORDERED: AZITHROMYCIN 250 MG TABLET PO STA (15:51)
--- NOTE | 2023-01-08 15:58 | HISTORY & PHYSICAL EXAMINATION ---
Chief Complaint - Chief Complaint Chief Complaint: Short of air History of Present Illness - Admitted From Admitted From:: ED - History Obtained From History obtained from: ED provider and the patient - History of Present Illness HPI Comment/Other: This is an 87-year-old -[place] male who has a history of hypertension, gout, paroxysmal Afib and is on Xarelto, has COPD, pulmonary hypertension and some granulomatous lung disease, he only takes inhalers prn and is NOT on home oxygen. He was taken off of his Lasix recently by a provider because it was worsening his gout. In the last 5 days he has noticed worsening shortness of breath and today was short of breath at rest and presented to a Walk In Clinic and had an O2 saturation of 80% on room air. An ambulance was called and he was brought to our Er, where his room air saturation was 86% and then oxygen was resumed at 2 L. This improved his sats to 92%. He was also found to have CHF on chest x-ray and was given Lasix 40 mg IV. His labs show he was COVID-negative. He also received Decadron IV and nebulizer treatment x1. The ED provider called me on the Hospitalist team and we discussed managing his acute respiratory failure with hypoxia which appears to be from COPD exacerbation and a CHF exacerbation, the latter probably from being taken off his Lasix. His CODE STATUS was discussed, he wants to be a Full Code. This patient had an Echocardiogram ordered by Dr Michel, which was done here just 4 months ago (in July 2022), and it showed normal LVEF but septal flattening and moderate RV dilation seen (consistent with Cor Pulmonale), and IVC dilation and pulm hypertension with a PA pressure of 47 mmHg. History - Past Medical History Cardiovascular: reports: Congestive heart failure, Hypertension, Atrial fibrillation (paroxysmal) Respiratory: reports: COPD, Shortness of breath Neuro: reports: None Endocrine/Autoimmune: reports: Type 2 diabetes : reports: Benign prostate hypertrophy, Nocturia, Kidney stones Psych: reports: None Musculoskeletal: reports: Gout, Chronic back pain Derm: reports: None MRSA Hx?: No - Past Surgical History Cardiovascular: reports: Other - Family & Social History Living arrangement: At home Living Situation: With spouse/s.o. Social History Notes: This patient quit smoking 17 years ago. He drinks no alcohol and uses no illicit drug - Substance History Use: Uses substance without health or social issues: NONE - POLST Patient has POLST: No Meds/Allgy - Home Medications Home Medications: Ambulatory Orders Medication Instructions Recorded Confirmed Albuterol 2.5 mg INH Q4H PRN 04/12/21 01/08/23 Doxazosin [Cardura] 4 mg PO DAILY 04/12/21 01/08/23 Gabapentin [Neurontin] 400 mg PO DAILY 04/12/21 01/08/23 Rivaroxaban [Xarelto] 15 mg PO DAILY 04/12/21 01/08/23 Verapamil HCl [Calan Sr] 240 mg PO DAILY 04/12/21 01/08/23 Linagliptin [Tradjenta] 5 mg PO DAILY 05/10/21 01/08/23 Fluticasone Propion/Salmeterol 1 puffs INH BID 01/08/23 01/08/23 [Fluticasone-Salmeterol 250-50] Lisinopril [Zestril] 10 mg PO DAILY 01/08/23 01/08/23 Rosuvastatin Calcium [Crestor] 20 mg PO DAILY 01/08/23 01/08/23 - Allergies Allergies/Adverse Reactions: Allergies Allergy/AdvReac Type Severity Reaction Status Date / Time No Known Drug Allergies Allergy Verified 01/08/23 10:03 Review of Systems - Constitutional Constitutional: reports: Fever ("felt" feverish lately) - Cardiovascular Cariovascular: reports: Exertional dyspnea - Respiratory Respiratory: reports: Cough (without sputum production), SOB at rest, SOB with exertion - Gastrointestinal Gastrointestinal: reports: Diarrhea (x1 several days ago) - All Other Systems All Other Systems: reports: Reviewed and negative Exam - Vital Signs Reviewed Vital Signs: Yes Vital Signs: Vital Signs x48h Temp Pulse Resp BP Pulse Ox O2 Flow Rate 01/08/23 14:45 102 H 20 2 01/08/23 13:46 2 01/08/23 13:27 97 20 129/80 92 2 01/08/23 12:48 100 18 112/68 93 01/08/23 11:03 115 H 21 112/74 96 2 01/08/23 10:33 102 H 18 106/48 L 100 4 01/08/23 10:18 96 20 01/08/23 10:03 98 4 01/08/23 10:00 86 L 01/08/23 09:58 36.7 C 108 H 28 H 131/64 H 86 L - Physical Exam General Appearance: positive: No acute distress, Alert, Other (Elderly black male, in no acute distress wearing O2 via n.c.) Eyes Bilateral: positive: Normal inspection, EOMI ENT: positive: ENT inspection nml, No signs of dehydration Neck: positive: Nml inspection Respiratory: positive: Wheezes, Rales, Rhonchi Cardiovascular: positive: Regular rate & rhythm, No murmur (Heart sounds are very distant due to his morbid obesity and his loud lung sounds) Abdomen: positive: Other (Very distended vs obese with a pannus, non-tender, hypertympanic, cannot R/O organomegaly or ascites. Normal bowel sounds.) Extremities: positive: Non-tender, Other (2+ edema to knees) Neurologic/Psychiatric: positive: Oriented x3, Motor nml Conclusion/Plan - Problem List (1) Acute respiratory failure with hypoxia Conclusion/Plan: The cause appears to be a CHF exacerbation and COPD exacerbation Plan: Continue with supplemental O2, goal oxygen saturations will be 88% to 93%. Treat the underlying problems Plan to do an oximetry walk test on the day of discharge since seen may now need home oxygen order (2) CHF exacerbation Conclusion/Plan: His Echo which was just done 4 months ago shows a preserved LVEF. Very likely the cause of this CHF exacerbation was discontinuation of his Lasix a week ago Plan: We will treat with IV BID Lasix. We will probably switch to daily spironolactone after that, which does not have the same side effect of raising uric acid as a loop diuretic does We will continue his meds for rate control Order a low salt diet Follow I's and O's and daily weights (3) COPD exacerbation Conclusion/Plan: He has a history of moderate COPD. He does not take scheduled inhalers, unclear why. He is not on home oxygen Plan: We will give IV Solu-Medrol for several days We will give scheduled and as needed DuoNebs Will give Mucinex for pulmonary toilet Will start nightly Montelukast Will give a course of oral Zithromax and IV ceftriaxone empirically (4) Cor pulmonale Conclusion/Plan: As per echo done 4 months ago Plan: We will treat with IV twice daily Lasix Follow I's and O's and daily weights Treat the underlying cause for hypoxia, his COPD (5) Paroxysmal atrial fibrillation Conclusion/Plan: Today's EKG shows NSR. Plan: Continue with his Verapamil for rate control and his DOAC for stroke Prophylaxis (we need to substitute Eliquis for his Xarelto, since Xarelto is not on hospital formulary). (6) Hx of gout Conclusion/Plan: The recent history is important and that his Lasix was discontinued a week ago because added to his gout, probably by elevating uric acid level Plan: We need to use IV Lasix while he is here to treat his CHF exacerbation. Will probably continue with the diuretic after discharge, using Spironolactone not Lasix We will continue his allopurinol We will be on IV steroids therefore if there is any gouty attack, the steroids would help with that currently We will check a uric acid level - Lab Results Lab results reviewed: Yes Fish Bones: 01/08/23 10:40 01/08/23 10:40 - Other Other Results/Comments: Attestation: The patient is expected to be discharged or transferred to another facility within 96 hours: Yes.
[2023-01-08] MEDS: cefTRIAXone 1 GM in SODIUM CHLORIDE 0.9% MINIBAG 100 ML IV SCH (16:32)
[2023-01-08] MEDS: SODIUM CHLORIDE FLUSH 0.9% 10 ML SYRINGE IVP SCH (16:33)
[2023-01-08] MEDS: MONTELUKAST 10 MG TABLET PO SCH (21:15)
[2023-01-08] MEDS: guaiFENesin 600 MG TABLET PO SCH (21:15)
[2023-01-08] MEDS: ATORVASTATIN 40 MG TABLET PO SCH (21:15)
[2023-01-08] MEDS: DOXAZOSIN 4 MG TABLET PO SCH (21:16)
[2023-01-08] MEDS: APIXABAN 2.5 MG TABLET PO SCH (21:16)
[2023-01-08] MEDS: IPRATROPIUM/ALBUTEROL 3 ML NEB INH PRN (22:42)
[2023-01-09] MEDS: SODIUM CHLORIDE FLUSH 0.9% 10 ML SYRINGE IVP SCH ×3 (01:28→19:01)
[2023-01-09] MEDS: IPRATROPIUM/ALBUTEROL 3 ML NEB INH PRN (03:12)
[2023-01-09 04:57] LABS: HCT - HEMATOCRIT 39.4 % (42.0-52.0); HGB - HEMOGLOBIN 11.6 g/dL (14.0-18.0); LYMPHOCYTES # (AUTO) 0.3 10^3/uL (1.5-3.5); LYMPHOCYTES % (AUTO) 6.8 %; MEAN CORPUSCULAR HEMOGLOBIN 24.5 pg (27.0-31.0); MEAN CORPUSCULAR HGB CONC 29.4 g/dL (32.0-36.0); MEAN CORPUSCULAR VOLUME 83.3 fL (80.0-94.0); MEAN PLATELET VOLUME 11.7 fL (7.4-11.4); MONOCYTES # (AUTO) 0.1 10^3/uL (0.0-1.0); MONOCYTES % (AUTO) 2.4 %; NEUTROPHILS # (AUTO) 4.1 10^3/uL (1.5-6.6); NEUTROPHILS % (AUTO) 90.4 %; PLT - PLATELET COUNT 162 10^3/uL (130-450); RED BLOOD COUNT 4.73 10^6/uL (4.70-6.10); RED CELL DISTRIBUTION WIDTH 14.6 % (12.0-15.0); WHITE BLOOD COUNT 4.6 x10^3/uL (4.8-10.8)
[2023-01-09] MEDS: methylPREDNISolone SUCCINATE 40 MG/ML VIAL IVP SCH ×3 (05:03→21:54)
[2023-01-09 05:08] LABS: CALCIUM 8.8 mg/dL (8.5-10.3); CREATININE 1.7 mg/dL (0.6-1.2); MAGNESIUM 1.7 mg/dL (1.7-2.8); POTASSIUM 5.8 mmol/L (3.5-5.0); URIC ACID 6.4 mg/dL (2.6-7.2)
[2023-01-09] MEDS: FUROSEMIDE 40 MG/4 ML VIAL IVP SCH (06:19)
[2023-01-09] MEDS: IPRATROPIUM/ALBUTEROL 3 ML NEB INH SCH ×4 (07:25→19:35)
[2023-01-09] MEDS: allopurinoL 100 MG TABLET PO SCH (08:08)
[2023-01-09] MEDS: guaiFENesin 600 MG TABLET PO SCH ×2 (08:09→20:51)
[2023-01-09] MEDS: APIXABAN 2.5 MG TABLET PO SCH ×2 (08:09→20:51)
[2023-01-09] MEDS: AZITHROMYCIN 250 MG TABLET PO SCH (08:09)
[2023-01-09] MEDS: VERAPAMIL ER 120 MG TABLET PO SCH (08:09)
[2023-01-09] MEDS: GABAPENTIN 400 MG CAPSULE PO SCH (08:09)
[2023-01-09] MEDS: cefTRIAXone 1 GM in SODIUM CHLORIDE 0.9% MINIBAG 100 ML IV SCH (09:10)
--- NOTE | 2023-01-09 15:37 | PROVIDER PROGRESS NOTE ---
Assessment/Plan - Problem List (1) Acute respiratory failure with hypoxia Assessment/Plan: The cause appears to be a CHF exacerbation and COPD exacerbation Plan: Continue with supplemental O2, goal oxygen saturations will be 88% to 93%. Treat the underlying problems Try to work starting with PT and OT today Plan to do an oximetry walk test on the day of discharge since seen may now need home oxygen order (2) CHF exacerbation Conclusion/Plan: His Echo which was just done 4 months ago shows a preserved LVEF. Very likely the cause of this CHF exacerbation was discontinuation of his Lasix a week ago Plan: Will stop IV Lasix, due to worsening BUN/creat. We will probably start daily spironolactone, which does not have the same side effect of raising uric acid as a loop diuretic does We will continue his meds for rate control Cont a low salt diet Follow I's and O's and daily weights (3) Acute on CKD I reviewed his EMR, and all his current labs. His creatinine has run about 1.4 for the last 4 years. At admission his creatinine yesterday was 1.5. After getting IV Lasix several doses this adm, his creatinine juli to 1.7 today Plan: We will stop the IV Lasix. Allow equilibration Start p.o. diuretic tomorrow, probably Spironolactone (4) COPD exacerbation Conclusion/Plan: He has a history of moderate COPD. He does not take scheduled inhalers, unclear why. He is not on home oxygen Plan: Cont IV Solu-Medrol for several days Cont scheduled and as needed DuoNebs Cont Mucinex for pulmonary toilet Cont new nightly Montelukast Complete a course of oral Zithromax and IV ceftriaxone empirically (5) Cor pulmonale Conclusion/Plan: As per Echo done 4 months ago With IV BID Lasix, his BP dropped, signifying that his LV preload is very fluid sensitive which can be explained by this Cor Pulmonale when over-diuresed. Plan: Stop IV Lasix, will probably start spironolactone soon Follow I's and O's and daily weights Treat the underlying cause for hypoxia, his COPD (6) Paroxysmal atrial fibrillation Conclusion/Plan: Adm EKG shows NSR. Telemetry today shows sinus rhythm with PACs and short runs of Wenckebach Plan: Continue with his Verapamil for rate control and his DOAC for stroke Prophylaxis (we need to substitute Eliquis for his Xarelto, since Xarelto is not on hospital formulary). (7) Hx of gout Conclusion/Plan: The recent history is important and that his Lasix was discontinued a week ago because added to his gout, probably by elevating uric acid level. His uric acid level here was 6.4, WNL Plan: We need to use IV Lasix while he is here to treat his CHF exacerbation. Will probably continue with the diuretic after discharge, using Spironolactone not Lasix We will continue his allopurinol He will be on IV steroids therefore if there is any gouty attack, the steroids would help with that currently - Current Meds Current Meds: Current Medications Generic Name Dose Route Start Last Admin Trade Name Freq PRN Reason Stop Dose Admin Acetaminophen 650 mg 01/08/23 13:10 01/08/23 19:38 Acetaminophen 325 Mg Tablet PO 650 mg Q4HR PRN Administration Pain 1 to 4, or Fever Albuterol/Ipratropium 3 ml 01/08/23 13:15 01/09/23 03:12 Ipratropium/Albuterol 3 Ml Neb INH 3 ml Q4HR PRN Administration Wheezing Albuterol/Ipratropium 3 ml 01/08/23 15:00 01/09/23 11:53 Ipratropium/Albuterol 3 Ml Neb INH 3 ml RTQID LINO Administration Allopurinol 100 mg 01/09/23 09:00 01/09/23 08:08 Allopurinol 100 Mg Tablet PO 100 mg DAILY LINO Administration Apixaban 2.5 mg 01/08/23 21:00 01/09/23 08:09 Apixaban 2.5 Mg Tablet PO 2.5 mg BID LINO Administration Atorvastatin Calcium 40 mg 01/08/23 21:00 01/08/23 21:15 Atorvastatin 40 Mg Tablet PO 40 mg QPM LINO Administration Azithromycin 500 mg 01/09/23 09:00 01/09/23 08:09 Azithromycin 250 Mg Tablet PO 01/10/23 09:01 500 mg DAILY LINO Administration Doxazosin Mesylate 4 mg 01/08/23 21:00 01/08/23 21:16 Doxazosin 4 Mg Tablet PO 4 mg QPM LINO Administration Gabapentin 400 mg 01/09/23 09:00 01/09/23 08:09 Gabapentin 400 Mg Capsule PO 400 mg DAILY LINO Administration Guaifenesin 600 mg 01/08/23 21:00 01/09/23 08:09 Guaifenesin 600 Mg Tablet PO 600 mg BID LINO Administration Ceftriaxone Sodium 1 gm/ 100 mls @ 200 mls/hr 01/08/23 16:18 01/09/23 09:40 Sodium Chloride IV Infused DAILY LINO Infusion Methylprednisolone 40 mg 01/08/23 14:00 01/09/23 14:09 Methylprednisolone Succinate 40 Mg/Ml Vial IVP 40 mg TID LINO Administration Montelukast Sodium 10 mg 01/08/23 21:00 01/08/23 21:15 Montelukast 10 Mg Tablet PO 10 mg QPM LINO Administration Sodium Chloride 10 ml 01/08/23 17:00 01/09/23 14:09 Sodium Chloride Flush 0.9% 10 Ml Syringe IVP 10 ml 0100,0900,1700 LINO Administration Verapamil HCl 240 mg 01/09/23 09:00 01/09/23 08:09 Verapamil Er 120 Mg Tablet PO 240 mg DAILY LINO Administration - Lab Result Fish Bone Diagrams: 01/09/23 04:34 01/09/23 04:34 - Additional Planning My Orders: My Active Orders 01/08/23 14:45 RT [Nebulizer/MDI Tx.] [RC] QID 01/08/23 15:00 Ipratropium/Albuterol [Duoneb] 3 ml INH RTQID 01/08/23 Dinner Low Sodium Diet [DIET] 01/08/23 16:18 cefTRIAXone [Rocephin] 1 gm Sodium Chloride 0.9% Minibag [Normal Saline 0.9% Minibag] 100 ml IV DAILY 01/08/23 17:00 Sodium Chloride Flush 0.9% [Normal Saline Flush 0.9%] 10 ml IVP 0100,0900,1700 01/08/23 21:00 Apixaban [Eliquis] 2.5 mg PO BID Atorvastatin [Lipitor] 40 mg PO QPM Doxazosin [Cardura] 4 mg PO QPM Montelukast [Singulair] 10 mg PO QPM guaiFENesin [Mucinex] 600 mg PO BID 01/09/23 Evaluate and Treat OT [OT] Routine Evaluate and Treat PT [PT] Routine 01/09/23 08:44 Miscellaenous Nursing Order [RC] QS[facility] 01/09/23 08:45 [facility]en[facility] 01/09/23 09:00 Azithromycin [Zithromax] 500 mg PO DAILY Gabapentin [Neurontin] 400 mg PO DAILY Verapamil ER [Calan SA] 240 mg PO DAILY allopurinoL [Zyloprim] 100 mg PO DAILY 01/10/23 05:00 BMP - BASIC METABOLIC PANEL [CHEM] DAILYLAB CBC - COMP BLD CT W/AUTO DIFF [HEME] DAILYLAB 01/11/23 05:00 BMP - BASIC METABOLIC PANEL [CHEM] DAILYLAB CBC - COMP BLD CT W/AUTO DIFF [HEME] DAILYLAB Subjective - Subjective Patient Reports: Feeling Better (Describes a cough, possibly more productive. Has severe wheezing today, cannot wait to get his DuoNeb treatments) Objective Vital Signs: Vital Signs - 24 hr 01/08/23 01/08/23 01/08/23 16:00 18:45 21:00 Temperature 36.4 C L 36.7 C Heart Rate 78 Heart Rate [ 104 H 87 Brachial] Heart Rate [ Sitting] Heart Rate [ Supine] Respiratory 16 17 18 Rate Blood Pressure 103/59 L 104/62 [Left Brachial artery] Blood Pressure 104/62 [Right Brachial artery] Blood Pressure [Sitting] Blood Pressure [Supine] O2 Saturation 91 L If not protocol 2 2 2 : Oxygen Flow, liters/minute 01/08/23 01/09/23 01/09/23 22:43 00:48 03:13 Temperature 36.8 C Heart Rate 79 78 Heart Rate [ 92 Brachial] Heart Rate [ Sitting] Heart Rate [ Supine] Respiratory 18 20 16 Rate Blood Pressure 111/53 L [Left Brachial artery] Blood Pressure [Right Brachial artery] Blood Pressure [Sitting] Blood Pressure [Supine] O2 Saturation 93 If not protocol 2 2 2 : Oxygen Flow, liters/minute 01/09/23 01/09/23 01/09/23 03:14 04:55 07:26 Temperature 36.6 C Heart Rate 86 Heart Rate [ 56 L Brachial] Heart Rate [ Sitting] Heart Rate [ Supine] Respiratory 22 20 Rate Blood Pressure 117/66 [Left Brachial artery] Blood Pressure [Right Brachial artery] Blood Pressure [Sitting] Blood Pressure [Supine] O2 Saturation 94 If not protocol 2 2 2 : Oxygen Flow, liters/minute 01/09/23 01/09/23 01/09/23 08:26 11:55 13:09 Temperature 36.5 C 36.6 C Heart Rate 84 Heart Rate [ 104 H 103 H Brachial] Heart Rate [ Sitting] Heart Rate [ Supine] Respiratory 20 16 20 Rate Blood Pressure 133/70 H 116/56 L [Left Brachial artery] Blood Pressure [Right Brachial artery] Blood Pressure [Sitting] Blood Pressure [Supine] O2 Saturation 95 94 If not protocol 2 2 2 : Oxygen Flow, liters/minute 01/09/23 01/09/23 13:33 13:39 Temperature Heart Rate Heart Rate [ Brachial] Heart Rate [ 104 H 104 H Sitting] Heart Rate [ 94 94 Supine] Respiratory Rate Blood Pressure [Left Brachial artery] Blood Pressure [Right Brachial artery] Blood Pressure 108/49 L 108/49 L [Sitting] Blood Pressure 134/61 H 134/61 H [Supine] O2 Saturation If not protocol : Oxygen Flow, liters/minute Oxygen O2 Source Nasal cannula Oxygen Flow Rate 4 I&O (Last 24 Hrs): Intake and Output Totals x24h 01/07/23 01/08/23 01/09/23 23:59 23:59 23:59 Intake Total 720 1430 Output Total 1200 1050 Balance -480 380 General: Alert, Oriented x3 HEENT: Mucous membr. moist/pink, Other (edentulous) Neck: Supple, Other (Cannot evaluate JVP due to obesity) Neuro: Alert, Non Focal Cardiovascular: No murmurs (Distant heart sounds due to obesity and due to COPD) Respiratory: Wheezes (In all lung chase and prolonged expiratory phase), Other (wearingO2 via n.c.) Abdomen: Soft, No tenderness, Other (Obese) Extremities: Other (1+ edema to knees) - Results Results: Laboratory Results WBC 4.6 x10^3/uL (4.8-10.8) L 01/09/23 04:34 RBC 4.73 10^6/uL (4.70-6.10) 01/09/23 04:34 Hgb 11.6 g/dL (14.0-18.0) L 01/09/23 04:34 Hct 39.4 % (42.0-52.0) L 01/09/23 04:34 MCV 83.3 fL (80.0-94.0) 01/09/23 04:34 MCH 24.5 pg (27.0-31.0) L 01/09/23 04:34 MCHC 29.4 g/dL (32.0-36.0) L 01/09/23 04:34 RDW 14.6 % (12.0-15.0) 01/09/23 04:34 Plt Count 162 10^3/uL (130-450) 01/09/23 04:34 MPV 11.7 fL (7.4-11.4) H 01/09/23 04:34 Neut # (Auto) 4.1 10^3/uL (1.5-6.6) 01/09/23 04:34 Lymph # (Auto) 0.3 10^3/uL (1.5-3.5) L 01/09/23 04:34 [place] # (Auto) 0.1 10^3/uL (0.0-1.0) 01/09/23 04:34 Eos # (Auto) 0.0 10^3/uL (0.0-0.7) 01/09/23 04:34 Baso # (Auto) 0.0 10^3/uL (0.0-0.1) 01/09/23 04:34 Absolute Nucleated RBC 0.00 x10^3/uL 01/09/23 04:34 Nucleated RBC % 0.0 /100WBC 01/09/23 04:34 Sodium 139 mmol/L (135-145) 01/09/23 04:34 Potassium 5.8 mmol/L (3.5-5.0) H 01/09/23 04:34 Chloride 107 mmol/L (101-111) 01/09/23 04:34 Carbon Dioxide 23 mmol/L (21-32) 01/09/23 04:34 Anion Gap 9.0 (6-13) 01/09/23 04:34 BUN 39 mg/dL (6-20) H 01/09/23 04:34 Creatinine 1.7 mg/dL (0.6-1.2) H 01/09/23 04:34 Estimated GFR (MDRD) 47 (>89) L 01/09/23 04:34 Glucose 191 mg/dL (70-100) H 01/09/23 04:34 Uric Acid 6.4 mg/dL (2.6-7.2) 01/09/23 04:34 Calcium 8.8 mg/dL (8.5-10.3) 01/09/23 04:34 Magnesium 1.7 mg/dL (1.7-2.8) 01/09/23 04:34 Total Bilirubin 0.4 mg/dL (0.2-1.0) 01/08/23 10:40 AST 24 IU/L (10-42) 01/08/23 10:40 ALT 25 IU/L (10-60) 01/08/23 10:40 Alkaline Phosphatase 67 IU/L (42-121) 01/08/23 10:40 Troponin I High Sens 30.2 ng/L (2.3-19.7) H* 01/08/23 10:40 B-Natriuretic Peptide 189 pg/mL (5-100) H 01/08/23 10:40 Total Protein 7.7 g/dL (6.7-8.2) 01/08/23 10:40 Albumin 3.1 g/dL (3.2-5.5) L 01/08/23 10:40 Globulin 4.6 g/dL (2.1-4.2) H 01/08/23 10:40 Albumin/Globulin Ratio 0.7 (1.0-2.2) L 01/08/23 10:40 Lipase 51 U/L (22-51) 01/08/23 10:40 Nasal Adenovirus (PCR) NOT DETECTED 01/08/23 10:40 Nasal B. parapertussis DNA (PCR) NOT DETECTED 01/08/23 10:40 Nasal Coronavir 229E PCR NOT DETECTED 01/08/23 10:40 Nasal Coronavir HKU1 PCR NOT DETECTED 01/08/23 10:40 Nasal Coronavir NL63 PCR NOT DETECTED 01/08/23 10:40 Nasal Coronavir OC43 PCR NOT DETECTED 01/08/23 10:40 Nasal Enterovir/Rhinovir PCR NOT DETECTED 01/08/23 10:40 Nasal Influenza B PCR NOT DETECTED 01/08/23 10:40 Nasal Influenza A PCR NOT DETECTED 01/08/23 10:40 Nasal Parainfluen 1 PCR NOT DETECTED 01/08/23 10:40 Nasal Parainfluen 2 PCR NOT DETECTED 01/08/23 10:40 Nasal Parainfluen 3 PCR NOT DETECTED 01/08/23 10:40 Nasal Parainfluen 4 PCR NOT DETECTED 01/08/23 10:40 Nasal RSV (PCR) NOT DETECTED 01/08/23 10:40 Nasal B.pertussis DNA PCR NOT DETECTED 01/08/23 10:40 Nasal C.pneumoniae (PCR) NOT DETECTED 01/08/23 10:40 [place] Human Metapneumo PCR NOT DETECTED 01/08/23 10:40 Nasal M.pneumoniae (PCR) NOT DETECTED 01/08/23 10:40 Nasal SARS-CoV-2 (PCR) NOT DETECTED 01/08/23 10:40
[2023-01-09] MEDS: ATORVASTATIN 40 MG TABLET PO SCH (20:51)
[2023-01-09] MEDS: ACETAMINOPHEN 325 MG TABLET PO PRN (20:51)
[2023-01-09] MEDS: DOXAZOSIN 4 MG TABLET PO SCH (20:51)
[2023-01-09] MEDS: MONTELUKAST 10 MG TABLET PO SCH (20:51)
[2023-01-10] MEDS: SODIUM CHLORIDE FLUSH 0.9% 10 ML SYRINGE IVP SCH ×3 (01:05→16:59)
[2023-01-10] MEDS: IPRATROPIUM/ALBUTEROL 3 ML NEB INH PRN (01:10)
[2023-01-10 05:15] LABS: BASOPHILS % (AUTO) 0.1 %; HCT - HEMATOCRIT 36.5 % (42.0-52.0); HGB - HEMOGLOBIN 10.9 g/dL (14.0-18.0); LYMPHOCYTES # (AUTO) 0.3 10^3/uL (1.5-3.5); LYMPHOCYTES % (AUTO) 2.7 %; MEAN CORPUSCULAR HEMOGLOBIN 24.8 pg (27.0-31.0); MEAN CORPUSCULAR HGB CONC 29.9 g/dL (32.0-36.0); MEAN CORPUSCULAR VOLUME 83.1 fL (80.0-94.0); MEAN PLATELET VOLUME 11.1 fL (7.4-11.4); MONOCYTES # (AUTO) 0.4 10^3/uL (0.0-1.0); MONOCYTES % (AUTO) 4.5 %; NEUTROPHILS # (AUTO) 8.5 10^3/uL (1.5-6.6); NEUTROPHILS % (AUTO) 91.9 %; PLT - PLATELET COUNT 162 10^3/uL (130-450); RED BLOOD COUNT 4.39 10^6/uL (4.70-6.10); RED CELL DISTRIBUTION WIDTH 14.5 % (12.0-15.0); WHITE BLOOD COUNT 9.3 x10^3/uL (4.8-10.8)
[2023-01-10 05:21] LABS: CALCIUM 8.5 mg/dL (8.5-10.3); CREATININE 2.3 mg/dL (0.6-1.2); POTASSIUM 5.6 mmol/L (3.5-5.0)
[2023-01-10] MEDS: methylPREDNISolone SUCCINATE 40 MG/ML VIAL IVP SCH ×3 (05:25→21:55)
[2023-01-10] MEDS: IPRATROPIUM/ALBUTEROL 3 ML NEB INH SCH ×4 (07:12→19:35)
[2023-01-10] MEDS ORDERED: SODIUM ZIRCONIUM CYCLOSILICATE 5 GM PACKET PO ONE (08:00)
[2023-01-10] MEDS: allopurinoL 100 MG TABLET PO SCH (08:40)
[2023-01-10] MEDS: AZITHROMYCIN 250 MG TABLET PO SCH (08:40)
[2023-01-10] MEDS: GABAPENTIN 400 MG CAPSULE PO SCH (08:40)
[2023-01-10] MEDS: guaiFENesin 600 MG TABLET PO SCH ×2 (08:41→20:21)
[2023-01-10] MEDS: VERAPAMIL ER 120 MG TABLET PO SCH (08:41)
[2023-01-10] MEDS: APIXABAN 2.5 MG TABLET PO SCH ×2 (08:41→20:21)
[2023-01-10] MEDS: cefTRIAXone 1 GM in SODIUM CHLORIDE 0.9% MINIBAG 100 ML IV SCH (08:47)
[2023-01-10] MEDS ORDERED: SPIRONOLACTONE 25 MG TABLET PO SCH (09:00)
[2023-01-10] MEDS: BUDESONIDE 0.5 MG/2 ML NEB INH SCH ×2 (11:26→19:35)
[2023-01-10] MEDS ORDERED: INSULIN REGULAR HUMAN 300 UNIT/3 ML VIAL SUBQ SCH (12:00)
[2023-01-10] MEDS ORDERED: INSULIN LISPRO 300 UNIT/3 ML PEN SUBQ SCH (12:30)
[2023-01-10] MEDS: CYANOCOBALAMIN 500 MCG TABLET PO SCH (12:58)
[2023-01-10] MEDS: SODIUM CHLORIDE FLUSH 0.9% 10 ML SYRINGE IVP PRN (12:59)
[2023-01-10 13:34] LABS: ESTIMATED AVERAGE GLUCOSE 160 mg/dL (70-100); HEMOGLOBIN A1c% 7.2 % (4.27-6.07)
[2023-01-10 15:07] LABS: CALCIUM 8.4 mg/dL (8.5-10.3); CREATININE 2.4 mg/dL (0.6-1.2); POTASSIUM 5.1 mmol/L (3.5-5.0)
[2023-01-10] MEDS: INSULIN LISPRO 300 UNIT/3 ML PEN SUBQ SCH ×3 (16:53→20:46)
--- NOTE | 2023-01-10 17:15 | PROVIDER PROGRESS NOTE ---
Assessment/Plan - Problem List (1) Acute respiratory failure with hypoxia Assessment/Plan: The cause appears to be a CHF exacerbation and a COPD exacerbation Plan: Continue with supplemental O2, goal oxygen saturations will be 88% to 93%. Treat the underlying problems Cont PT and OT Plan to do an oximetry walk test on the day of discharge since seen may now need home oxygen order (2) COPD exacerbation Conclusion/Plan: He has a history of moderate COPD. He does not take scheduled inhalers, unclear why. He is not on home oxygen Plan: Cont IV Solu-Medrol for several days Due to his slow improvement, will also add Pulmicort nebulized twice daily Cont scheduled and as needed DuoNebs Cont Mucinex for pulmonary toilet. Will add Tessalon perles and prn Robitussin for persistent cough Cont new nightly Montelukast Complete a course of oral Zithromax and IV ceftriaxone empirically (3) CHF exacerbation Conclusion/Plan: His Echo which was just done 4 months ago shows a preserved LVEF. Very likely the cause of this CHF exacerbation was discontinuation of his Lasix a week ago We stopped IV Lasix yesterday 01/09, due to worsening BUN/creat. Plan: Will not start daily spironolactone, due to further increase of BUN/creat today We will continue his meds for rate control Cont a low salt diet Follow I's and O's and daily weights (4) Acute on CKD I reviewed all his current labs. His creatinine has run about 1.4 for the last 4 years. At admission his creatinine was 1.5. After getting IV Lasix several doses this adm, his creatinine juli to 1.7, now 2.0 today We stopped IV Lasix yesterday 01/09, due to worsening BUN/creat. Plan: Will not start daily spironolactone, due to further increase of BUN/creat today Allow equilibration of fluids, but no iv NS infusions Avoid nephrotoxins Follow BMP daily (5) DM type 2 From his med list, at admission, it was not clear that he was a diabetic, there is no oral agent or insulin, only Tradjenta. After starting IV steroids, his glucoses are running in the 300s. Plan: Will order DM diet plus the low salt diet, hypoglycemia protocol, ac and hs fingerstick checks, sliding scale coverage and will check his A1c (6) Paroxysmal atrial fibrillation Conclusion/Plan: Adm EKG shows NSR. Telemetry has shown sinus rhythm with PACs and short runs of Wenckebach Plan: Continue with his Verapamil for rate control and his DOAC for stroke Prophylaxis (we needed to substitute Eliquis for his Xarelto, since Xarelto is not on hospital formulary). (7) Cor pulmonale Conclusion/Plan: As per Echo done 4 months ago With IV BID Lasix, his BP dropped, signifying that his LV preload is very fluid sensitive, which can be explained by this Cor Pulmonale when over-diuresed. Plan: Remain off the IV Lasix, do not start the planned spironolactone yet Follow I's and O's and daily weights Treat the underlying cause for hypoxia, his COPD (8) Hx of gout Conclusion/Plan: The recent history is important and that his Lasix was discontinued a week ago because added to his gout, probably by elevating uric acid level. His uric acid level here was 6.4, WNL Plan: Will probably eventually use Spironolactone not Lasix We will continue his allopurinol He will be on IV steroids therefore if there is any gouty attack, the steroids w ould help with that currently - Current Meds Current Meds: Current Medications Generic Name Dose Route Start Last Admin Trade Name Freq PRN Reason Stop Dose Admin Acetaminophen 650 mg 01/08/23 13:10 01/09/23 20:51 Acetaminophen 325 Mg Tablet PO 650 mg Q4HR PRN Administration Pain 1 to 4, or Fever Albuterol/Ipratropium 3 ml 01/08/23 13:15 01/10/23 01:10 Ipratropium/Albuterol 3 Ml Neb INH 3 ml Q4HR PRN Administration Wheezing Albuterol/Ipratropium 3 ml 01/08/23 15:00 01/10/23 14:55 Ipratropium/Albuterol 3 Ml Neb INH 3 ml RTQID LINO Administration Allopurinol 100 mg 01/09/23 09:00 01/10/23 08:40 Allopurinol 100 Mg Tablet PO 100 mg DAILY LINO Administration Apixaban 2.5 mg 01/08/23 21:00 01/10/23 08:41 Apixaban 2.5 Mg Tablet PO 2.5 mg BID LINO Administration Atorvastatin Calcium 40 mg 01/08/23 21:00 01/09/23 20:51 Atorvastatin 40 Mg Tablet PO 40 mg QPM LINO Administration Budesonide 0.5 mg 01/10/23 08:11 01/10/23 11:26 Budesonide 0.5 Mg/2 Ml Neb INH 0.5 mg RTBID LINO Administration Cyanocobalamin 500 mcg 01/10/23 13:00 01/10/23 12:58 Cyanocobalamin 500 Mcg Tablet PO 500 mcg DAILY LINO Administration Doxazosin Mesylate 4 mg 01/08/23 21:00 01/09/23 20:51 Doxazosin 4 Mg Tablet PO 4 mg QPM LINO Administration Gabapentin 400 mg 01/09/23 09:00 01/10/23 08:40 Gabapentin 400 Mg Capsule PO 400 mg DAILY LINO Administration Guaifenesin 600 mg 01/08/23 21:00 01/10/23 08:41 Guaifenesin 600 Mg Tablet PO 600 mg BID LINO Administration Ceftriaxone Sodium 1 gm/ 100 mls @ 200 mls/hr 01/08/23 16:18 01/10/23 09:18 Sodium Chloride IV Infused DAILY LINO Infusion Insulin Human Lispro 1 - 9 unit 01/10/23 17:00 01/10/23 16:53 Insulin Lispro 300 Unit/3 Ml Pen SUBQ 10 unit 0800,1200,1700,2100 [facility] Administration Protocol Methylprednisolone 40 mg 01/08/23 14:00 01/10/23 12:59 Methylprednisolone Succinate 40 Mg/Ml Vial IVP 40 mg TID LINO Administration Montelukast Sodium 10 mg 01/08/23 21:00 01/09/23 20:51 Montelukast 10 Mg Tablet PO 10 mg QPM LINO Administration Sodium Chloride 10 ml 01/08/23 13:10 01/10/23 12:59 Sodium Chloride Flush 0.9% 10 Ml Syringe IVP 10 ml PRN PRN Administration NEEDED PER PROVIDER ORDERS Sodium Chloride 10 ml 01/08/23 17:00 01/10/23 16:59 Sodium Chloride Flush 0.9% 10 Ml Syringe IVP 10 ml 0100,0900,1700 LINO Administration Verapamil HCl 240 mg 01/09/23 09:00 01/10/23 08:41 Verapamil Er 120 Mg Tablet PO 240 mg DAILY LINO Administration - Lab Result Fish Bone Diagrams: 01/10/23 04:51 01/10/23 14:46 - Additional Planning My Orders: My Active Orders 01/10/23 08:11 Budesonide [Pulmicort] 0.5 mg INH RTBID 01/10/23 10:37 Blood Glucose Checks - Eating [RC] 0800,1200,1700,2100 Initiate Hypoglycemia Protocol [RC] .protocol 01/10/23 13:00 Cyanocobalamin [Vitamin B-12] 500 mcg PO DAILY 01/10/23 17:00 Insulin Lispro [Humalog Kwikpen U-100] 1 - 9 unit SUBQ 0800,1200,1700,2100 01/10/23 21:00 Insulin Glargine-Yfgn [Semglee] 5 unit SUBQ BID 01/11/23 05:00 BMP - BASIC METABOLIC PANEL [CHEM] DAILYLAB CBC - COMP BLD CT W/AUTO DIFF [HEME] DAILYLAB Subjective - Subjective Patient Reports: Feeling Better (Still has a hacking and annoying cough, minimal sputum production. Is less short of today.) Objective Vital Signs: Vital Signs - 24 hr 01/09/23 01/09/23 01/10/23 19:35 20:51 01:00 Temperature 36.6 C Heart Rate Heart Rate [ 107 H 80 Brachial] Respiratory 20 20 18 Rate Blood Pressure [Left Brachial artery] Blood Pressure 114/59 L 114/66 [Right Brachial artery] O2 Saturation 92 94 If not protocol 2 2 2 : Oxygen Flow, liters/minute 01/10/23 01/10/23 01/10/23 01:10 04:56 07:12 Temperature 36.4 C L Heart Rate 74 97 Heart Rate [ 108 H Brachial] Respiratory 20 20 20 Rate Blood Pressure [Left Brachial artery] Blood Pressure 99/77 [Right Brachial artery] O2 Saturation 89 L If not protocol 2 2 2 : Oxygen Flow, liters/minute 01/10/23 01/10/23 01/10/23 09:00 11:27 13:00 Temperature 36.6 C 36.3 C L Heart Rate 97 Heart Rate [ 92 102 H Brachial] Respiratory 20 20 20 Rate Blood Pressure 140/75 H [Left Brachial artery] Blood Pressure 138/85 H [Right Brachial artery] O2 Saturation 94 If not protocol 2 1 2 : Oxygen Flow, liters/minute 01/10/23 01/10/23 14:52 14:55 Temperature 36.2 C L Heart Rate 94 Heart Rate [ 92 Brachial] Respiratory 23 20 Rate Blood Pressure 131/58 H [Left Brachial artery] Blood Pressure [Right Brachial artery] O2 Saturation 88 L If not protocol 1 : Oxygen Flow, liters/minute Oxygen O2 Source Nasal cannula Oxygen Flow Rate 4 I&O (Last 24 Hrs): Intake and Output Totals x24h 01/08/23 01/09/23 01/10/23 23:59 23:59 23:59 Intake Total 720 1910 1030 Output Total 1200 1500 750 Balance -480 410 280 General: Alert, Oriented x3 HEENT: Mucous membr. moist/pink, Other (edentulous) Neck: Supple Neuro: Alert, Non Focal Cardiovascular: No murmurs Respiratory: Breath sounds nml (No wheezing but has a prolonged expiratory phase) Abdomen: Soft, Other (Obese) Extremities: Other (Trace pretibial edema) - Results Results: Laboratory Results WBC 9.3 x10^3/uL (4.8-10.8) 01/10/23 04:51 RBC 4.39 10^6/uL (4.70-6.10) L 01/10/23 04:51 Hgb 10.9 g/dL (14.0-18.0) L 01/10/23 04:51 Hct 36.5 % (42.0-52.0) L 01/10/23 04:51 MCV 83.1 fL (80.0-94.0) 01/10/23 04:51 MCH 24.8 pg (27.0-31.0) L 01/10/23 04:51 MCHC 29.9 g/dL (32.0-36.0) L 01/10/23 04:51 RDW 14.5 % (12.0-15.0) 01/10/23 04:51 Plt Count 162 10^3/uL (130-450) 01/10/23 04:51 MPV 11.1 fL (7.4-11.4) 01/10/23 04:51 Neut # (Auto) 8.5 10^3/uL (1.5-6.6) H 01/10/23 04:51 Lymph # (Auto) 0.3 10^3/uL (1.5-3.5) L 01/10/23 04:51 [place] # (Auto) 0.4 10^3/uL (0.0-1.0) 01/10/23 04:51 Eos # (Auto) 0.0 10^3/uL (0.0-0.7) 01/10/23 04:51 Baso # (Auto) 0.0 10^3/uL (0.0-0.1) 01/10/23 04:51 Absolute Nucleated RBC 0.00 x10^3/uL 01/10/23 04:51 Nucleated RBC % 0.0 /100WBC 01/10/23 04:51 Sodium 136 mmol/L (135-145) 01/10/23 14:46 Potassium 5.1 mmol/L (3.5-5.0) H 01/10/23 14:46 Chloride 99 mmol/L (101-111) L 01/10/23 14:46 Carbon Dioxide 24 mmol/L (21-32) 01/10/23 14:46 Anion Gap 13.0 (6-13) 01/10/23 14:46 BUN 63 mg/dL (6-20) H 01/10/23 14:46 Creatinine 2.4 mg/dL (0.6-1.2) H 01/10/23 14:46 Estimated GFR (MDRD) 31 (>89) L 01/10/23 14:46 Glucose 474 mg/dL (70-100) H 01/10/23 14:46 POC Whole Bld Glucose 459 mg/dL (70 - 100) H 01/10/23 16:49 Estimat Average Glucose 160 mg/dL (70-100) H 01/10/23 04:51 Hemoglobin A1c % 7.2 % (4.27-6.07) H 01/10/23 04:51 Uric Acid 6.4 mg/dL (2.6-7.2) 01/09/23 04:34 Calcium 8.4 mg/dL (8.5-10.3) L 01/10/23 14:46 Magnesium 1.7 mg/dL (1.7-2.8) 01/09/23 04:34 Total Bilirubin 0.4 mg/dL (0.2-1.0) 01/08/23 10:40 AST 24 IU/L (10-42) 01/08/23 10:40 ALT 25 IU/L (10-60) 01/08/23 10:40 Alkaline Phosphatase 67 IU/L (42-121) 01/08/23 10:40 Troponin I High Sens 30.2 ng/L (2.3-19.7) H* 01/08/23 10:40 B-Natriuretic Peptide 189 pg/mL (5-100) H 01/08/23 10:40 Total Protein 7.7 g/dL (6.7-8.2) 01/08/23 10:40 Albumin 3.1 g/dL (3.2-5.5) L 01/08/23 10:40 Globulin 4.6 g/dL (2.1-4.2) H 01/08/23 10:40 Albumin/Globulin Ratio 0.7 (1.0-2.2) L 01/08/23 10:40 Lipase 51 U/L (22-51) 01/08/23 10:40 Vitamin B12 181 pg/mL (180-914) 01/10/23 04:51 Nasal Adenovirus (PCR) NOT DETECTED 01/08/23 10:40 Nasal B. parapertussis DNA (PCR) NOT DETECTED 01/08/23 10:40 Nasal Coronavir 229E PCR NOT DETECTED 01/08/23 10:40 Nasal Coronavir HKU1 PCR NOT DETECTED 01/08/23 10:40 Nasal Coronavir NL63 PCR NOT DETECTED 01/08/23 10:40 Nasal Coronavir OC43 PCR NOT DETECTED 01/08/23 10:40 Nasal Enterovir/Rhinovir PCR NOT DETECTED 01/08/23 10:40 Nasal Influenza B PCR NOT DETECTED 01/08/23 10:40 Nasal Influenza A PCR NOT DETECTED 01/08/23 10:40 Nasal Parainfluen 1 PCR NOT DETECTED 01/08/23 10:40 Nasal Parainfluen 2 PCR NOT DETECTED 01/08/23 10:40 Nasal Parainfluen 3 PCR NOT DETECTED 01/08/23 10:40 Nasal Parainfluen 4 PCR NOT DETECTED 01/08/23 10:40 Nasal RSV (PCR) NOT DETECTED 01/08/23 10:40 Nasal B.pertussis DNA PCR NOT DETECTED 01/08/23 10:40 Nasal C.pneumoniae (PCR) NOT DETECTED 01/08/23 10:40 [place] Human Metapneumo PCR NOT DETECTED 01/08/23 10:40 Nasal M.pneumoniae (PCR) NOT DETECTED 01/08/23 10:40 Nasal SARS-CoV-2 (PCR) NOT DETECTED 01/08/23 10:40
[2023-01-10] MEDS: BENZONATATE 100 MG CAPSULE PO PRN (20:21)
[2023-01-10] MEDS: ATORVASTATIN 40 MG TABLET PO SCH (20:21)
[2023-01-10] MEDS: MONTELUKAST 10 MG TABLET PO SCH (20:21)
[2023-01-10] MEDS: DOXAZOSIN 4 MG TABLET PO SCH (20:21)
[2023-01-10] MEDS: INSULIN GLARGINE-YFGN 300 UNIT/3 ML PEN SUBQ SCH (20:22)
[2023-01-11] MEDS: guaiFENesin/CODEINE 5 ML UDC PO PRN ×3 (02:52→18:41)
[2023-01-11] MEDS: SODIUM CHLORIDE FLUSH 0.9% 10 ML SYRINGE IVP SCH ×3 (02:53→16:37)
[2023-01-11] MEDS: BENZONATATE 100 MG CAPSULE PO PRN (02:53)
[2023-01-11] MEDS: methylPREDNISolone SUCCINATE 40 MG/ML VIAL IVP SCH ×2 (05:38→21:35)
[2023-01-11] MEDS: SODIUM CHLORIDE FLUSH 0.9% 10 ML SYRINGE IVP PRN (05:39)
[2023-01-11] MEDS: BUDESONIDE 0.5 MG/2 ML NEB INH SCH ×2 (07:18→19:40)
[2023-01-11] MEDS: IPRATROPIUM/ALBUTEROL 3 ML NEB INH SCH ×4 (07:18→19:40)
[2023-01-11] MEDS: INSULIN GLARGINE-YFGN 300 UNIT/3 ML PEN SUBQ SCH ×3 (08:23→22:43)
[2023-01-11] MEDS: INSULIN LISPRO 300 UNIT/3 ML PEN SUBQ SCH ×6 (08:24→22:40)
[2023-01-11] MEDS: VERAPAMIL ER 120 MG TABLET PO SCH (08:25)
[2023-01-11] MEDS: APIXABAN 2.5 MG TABLET PO SCH ×2 (08:26→21:34)
[2023-01-11] MEDS: CYANOCOBALAMIN 500 MCG TABLET PO SCH (08:26)
[2023-01-11] MEDS: guaiFENesin 600 MG TABLET PO SCH ×2 (08:26→21:34)
[2023-01-11] MEDS: GABAPENTIN 400 MG CAPSULE PO SCH (08:27)
[2023-01-11] MEDS: allopurinoL 100 MG TABLET PO SCH (08:27)
[2023-01-11 09:01] LABS: BASOPHILS % (AUTO) 0.1 %; HCT - HEMATOCRIT 39.9 % (42.0-52.0); HGB - HEMOGLOBIN 11.8 g/dL (14.0-18.0); LYMPHOCYTES # (AUTO) 0.3 10^3/uL (1.5-3.5); LYMPHOCYTES % (AUTO) 2.6 %; MEAN CORPUSCULAR HEMOGLOBIN 25.1 pg (27.0-31.0); MEAN CORPUSCULAR HGB CONC 29.6 g/dL (32.0-36.0); MEAN CORPUSCULAR VOLUME 84.7 fL (80.0-94.0); MEAN PLATELET VOLUME 11.6 fL (7.4-11.4); MONOCYTES # (AUTO) 0.5 10^3/uL (0.0-1.0); MONOCYTES % (AUTO) 4.6 %; NEUTROPHILS # (AUTO) 9.4 10^3/uL (1.5-6.6); PLT - PLATELET COUNT 166 10^3/uL (130-450); RED BLOOD COUNT 4.71 10^6/uL (4.70-6.10); RED CELL DISTRIBUTION WIDTH 15.1 % (12.0-15.0); WHITE BLOOD COUNT 10.3 x10^3/uL (4.8-10.8)
[2023-01-11 09:14] LABS: CALCIUM 8.3 mg/dL (8.5-10.3); CREATININE 2.5 mg/dL (0.6-1.2); POTASSIUM 5.9 mmol/L (3.5-5.0)
[2023-01-11] MEDS: cefTRIAXone 1 GM in SODIUM CHLORIDE 0.9% MINIBAG 100 ML IV SCH (10:32)
--- NOTE | 2023-01-11 14:25 | PROVIDER PROGRESS NOTE ---
Assessment/Plan - Problem List (1) Acute respiratory failure with hypoxia Assessment/Plan: The cause appears to be a COPD exacerbation, and possibly also a CHF exacerbation Plan: Continue with supplemental O2, goal oxygen saturations will be 88% to 93%. Treat the underlying problems Cont PT and OT Plan to do an oximetry walk test on the day of discharge since seen may now need home oxygen order (2) COPD exacerbation Conclusion/Plan: He has a history of moderate COPD. He does not take scheduled inhalers, unclear why. He is not on home oxygen. His spt cx had WBC and few squamous cells and is growing a GPC Plan: Will taper his IV Solu-Medrol fdown from TID to BID today Due to his slow improvement, cont the added Pulmicort nebulized twice daily Cont QID scheduled and as needed DuoNebs Cont Mucinex for pulmonary toilet. Will add Tessalon perles and prn Robitussin for persistent cough Cont new nightly Montelukast Complete a course of oral Zithromax and IV ceftriaxone empirically. Would change those depending on sputum cx results and sens (3) Acute on CKD I reviewed all his current labs. His creatinine has run about 1.4 for the last 4 years. At admission his creatinine was 1.5. After getting IV Lasix several doses this adm, his creatinine juli to 1.7>> 2.0>> 2.4 We stopped IV Lasix 2, due to worsening BUN/creat. Plan: Will not start daily spironolactone, due to further increase of BUN/creat today Will give 1L of NS at 50 cc/hr Avoid nephrotoxins Follow BMP daily (4) Hyperkalemia Likely from the [facility] Plan: Will order po Lokelma again x1 Will add Low K to his diet order (5) CHF exacerbation Conclusion/Plan: His Echo which was just done 4 months ago shows a preserved LVEF. Very likely the cause of this CHF exacerbation was discontinuation of his Lasix a week ago We stopped IV Lasix 01/09, due to worsening BUN/creat. Plan: Will recheck the LVEF and RVEF with a limited 2D Echo today. He will get 1L of saline slowly (for the worsened BUN/creat). Will not start daily spironolactone, due to further increase of BUN/creat today We will continue his meds for rate control Cont a low salt diet Follow I's and O's and daily weights (6) DM type 2 From his med list, at admission, it was not clear that he was a diabetic, there is no oral agent or insulin, only Tradjenta. After starting IV steroids, his glucoses are running in the 300s. Plan: Will order DM diet plus the low salt diet, hypoglycemia protocol, ac and hs fingerstick checks, sliding scale coverage and will check his A1c (7) Paroxysmal atrial fibrillation Conclusion/Plan: Adm EKG showed NSR. Telemetry has shown sinus rhythm with PACs and short runs of Wenckebach Plan: Continue with his Verapamil for rate control and his DOAC for stroke Prophylaxis (we needed to substitute Eliquis for his Xarelto, since Xarelto is not on hospital formulary). (8) Cor pulmonale Conclusion/Plan: As per Echo done 4 months ago With IV BID Lasix, his BP dropped, signifying that his LV preload is very fluid sensitive, which can be explained by this Cor Pulmonale when over-diuresed. Plan: Remain off the IV Lasix, do not start the planned spironolactone yet Follow I's and O's and daily weights Treat the underlying cause for hypoxia, his COPD (9) Hx of gout Conclusion/Plan: The recent history is important and that his Lasix was discontinued a week ago b ecause added to his gout, probably by elevating uric acid level. His uric acid level here was 6.4, WNL Plan: Will probably eventually use Spironolactone not Lasix We will continue his allopurinol He will be on IV steroids therefore if there is any gouty attack, the steroids would help with that currently - Current Meds Current Meds: Current Medications Generic Name Dose Route Start Last Admin Trade Name Freq PRN Reason Stop Dose Admin Acetaminophen 650 mg 01/08/23 13:10 01/09/23 20:51 Acetaminophen 325 Mg Tablet PO 650 mg Q4HR PRN Administration Pain 1 to 4, or Fever Albuterol/Ipratropium 3 ml 01/08/23 13:15 01/10/23 01:10 Ipratropium/Albuterol 3 Ml Neb INH 3 ml Q4HR PRN Administration Wheezing Albuterol/Ipratropium 3 ml 01/08/23 15:00 01/11/23 11:29 Ipratropium/Albuterol 3 Ml Neb INH 3 ml RTQID LINO Administration Allopurinol 100 mg 01/09/23 09:00 01/11/23 08:27 Allopurinol 100 Mg Tablet PO 100 mg DAILY LINO Administration Apixaban 2.5 mg 01/08/23 21:00 01/11/23 08:26 Apixaban 2.5 Mg Tablet PO 2.5 mg BID LINO Administration Atorvastatin Calcium 40 mg 01/08/23 21:00 01/10/23 20:21 Atorvastatin 40 Mg Tablet PO 40 mg QPM LINO Administration Benzonatate 100 mg 01/10/23 17:18 01/11/23 02:53 Benzonatate 100 Mg Capsule PO 100 mg TID PRN Administration Cough Budesonide 0.5 mg 01/10/23 08:11 01/11/23 07:18 Budesonide 0.5 Mg/2 Ml Neb INH 0.5 mg RTBID LINO Administration Cyanocobalamin 500 mcg 01/10/23 13:00 01/11/23 08:26 Cyanocobalamin 500 Mcg Tablet PO 500 mcg DAILY LINO Administration Doxazosin Mesylate 4 mg 01/08/23 21:00 01/10/23 20:21 Doxazosin 4 Mg Tablet PO 4 mg QPM LINO Administration Gabapentin 400 mg 01/09/23 09:00 01/11/23 08:27 Gabapentin 400 Mg Capsule PO 400 mg DAILY LINO Administration Guaifenesin 600 mg 01/08/23 21:00 01/11/23 08:26 Guaifenesin 600 Mg Tablet PO 600 mg BID LINO Administration Guaifenesin/Codeine Phosphate 5 ml 01/10/23 17:18 01/11/23 08:44 Guaifenesin/Codeine 5 Ml Udc PO 5 ml Q6HR PRN Administration Cough Ceftriaxone Sodium 1 gm/ 100 mls @ 200 mls/hr 01/08/23 16:18 01/11/23 11:05 Sodium Chloride IV 01/12/23 09:29 Infused DAILY LINO Infusion Insulin Glargine-yfgn 5 unit 01/10/23 21:00 01/11/23 08:23 Insulin Glargine-Yfgn 300 Unit/3 Ml Pen SUBQ 5 unit BID LINO Administration Insulin Human Lispro 4 unit 01/11/23 12:00 01/11/23 12:04 Insulin Lispro 300 Unit/3 Ml Pen SUBQ 4 unit TIDWM LINO Administration Protocol Insulin Human Lispro 3 - 11 unit 01/11/23 12:00 01/11/23 12:05 Insulin Lispro 300 Unit/3 Ml Pen SUBQ 11 unit 0800,1200,1700,2100 LINO Administration Protocol Montelukast Sodium 10 mg 01/08/23 21:00 01/10/23 20:21 Montelukast 10 Mg Tablet PO 10 mg QPM LINO Administration Sodium Chloride 10 ml 01/08/23 13:10 01/11/23 05:39 Sodium Chloride Flush 0.9% 10 Ml Syringe IVP 10 ml PRN PRN Administration NEEDED PER PROVIDER ORDERS Sodium Chloride 10 ml 01/08/23 17:00 01/11/23 08:28 Sodium Chloride Flush 0.9% 10 Ml Syringe IVP 10 ml 0100,0900,1700 LINO Administration Verapamil HCl 240 mg 01/09/23 09:00 01/11/23 08:25 Verapamil Er 120 Mg Tablet PO 240 mg DAILY LINO Administration - Lab Result Fish Bone Diagrams: 01/12/23 04:49 01/12/23 04:49 - Additional Planning My Orders: My Active Orders 01/10/23 17:18 Benzonatate [Tessalon] 100 mg PO TID PRN guaiFENesin/CODEINE [Robitussin AC] 5 ml PO Q6HR PRN 01/10/23 21:00 Insulin Glargine-Yfgn [Semglee] 5 unit SUBQ BID 01/11/23 12:00 Initiate Hypoglycemia Protocol [RC] .protocol Insulin Lispro [Humalog Kwikpen U-100] 3 - 11 unit SUBQ 0800,1200,1700,2100 Insulin Lispro [Humalog Kwikpen U-100] 4 unit SUBQ TIDWM 01/11/23 21:00 methylPREDNISolone SUCCINATE [SOLU-Medrol (40MG VIAL)] 40 mg IVP BID Subjective - Subjective Patient Reports: Resting Comfortably (Overall slightly better, still has a nonproductive cough, still needing nasal cannula because he desaturates with activity (walking with PT).) Objective Vital Signs: Vital Signs - 24 hr 01/10/23 01/10/23 01/10/23 14:52 14:55 19:35 Temperature 36.2 C L Heart Rate 94 98 Heart Rate [ 92 Brachial] Respiratory 23 20 20 Rate Blood Pressure 131/58 H [Left Brachial artery] Blood Pressure [Right Brachial artery] Blood Pressure [Right Radial artery] O2 Saturation 88 L If not protocol 1 1 : Oxygen Flow, liters/minute 01/10/23 01/11/23 01/11/23 21:22 02:18 05:00 Temperature 36.7 C 36.5 C 36.5 C Heart Rate Heart Rate [ 99 89 90 Brachial] Respiratory 20 20 20 Rate Blood Pressure 110/53 L [Left Brachial artery] Blood Pressure 115/67 [Right Brachial artery] Blood Pressure 125/76 [Right Radial artery] O2 Saturation 92 93 93 If not protocol 2 2 2 : Oxygen Flow, liters/minute 01/11/23 01/11/23 01/11/23 07:19 07:45 08:59 Temperature 36.5 C Heart Rate 90 Heart Rate [ 96 Brachial] Respiratory 20 20 Rate Blood Pressure [Left Brachial artery] Blood Pressure [Right Brachial artery] Blood Pressure [Right Radial artery] O2 Saturation 96 If not protocol 2 2 2 : Oxygen Flow, liters/minute 01/11/23 01/11/23 11:29 13:00 Temperature 36.5 C Heart Rate 90 Heart Rate [ 96 Brachial] Respiratory 20 20 Rate Blood Pressure 125/54 L [Left Brachial artery] Blood Pressure [Right Brachial artery] Blood Pressure [Right Radial artery] O2 Saturation 94 If not protocol 2 2 : Oxygen Flow, liters/minute Oxygen O2 Source Nasal cannula Oxygen Flow Rate 4 I&O (Last 24 Hrs): Intake and Output Totals x24h 01/09/23 01/10/23 01/11/23 23:59 23:59 23:59 Intake Total 1910 1600 1280 Output Total 1500 1050 725 Balance 410 550 555 General: Alert, Oriented x3 HEENT: EOMI, Mucous membr. moist/pink Neck: Supple Neuro: Alert Cardiovascular: Regular rate Respiratory: No respiratory distress (wearing O2 per n.c.), Breath sounds nml (Prolonged expiratory phase but no wheezing) Abdomen: Soft, Other (Obese) Extremities: No clubbing, Other (Trace edema) - Results Results: Laboratory Results WBC 10.3 x10^3/uL (4.8-10.8) 01/11/23 08:43 RBC 4.71 10^6/uL (4.70-6.10) 01/11/23 08:43 Hgb 11.8 g/dL (14.0-18.0) L 01/11/23 08:43 Hct 39.9 % (42.0-52.0) L 01/11/23 08:43 MCV 84.7 fL (80.0-94.0) 01/11/23 08:43 MCH 25.1 pg (27.0-31.0) L 01/11/23 08:43 MCHC 29.6 g/dL (32.0-36.0) L 01/11/23 08:43 RDW 15.1 % (12.0-15.0) H 01/11/23 08:43 Plt Count 166 10^3/uL (130-450) 01/11/23 08:43 MPV 11.6 fL (7.4-11.4) H 01/11/23 08:43 Neut # (Auto) 9.4 10^3/uL (1.5-6.6) H 01/11/23 08:43 Lymph # (Auto) 0.3 10^3/uL (1.5-3.5) L 01/11/23 08:43 [place] # (Auto) 0.5 10^3/uL (0.0-1.0) 01/11/23 08:43 Eos # (Auto) 0.0 10^3/uL (0.0-0.7) 01/11/23 08:43 Baso # (Auto) 0.0 10^3/uL (0.0-0.1) 01/11/23 08:43 Absolute Nucleated RBC 0.00 x10^3/uL 01/11/23 08:43 Nucleated RBC % 0.0 /100WBC 01/11/23 08:43 Sodium 135 mmol/L (135-145) 01/11/23 08:43 Potassium 5.9 mmol/L (3.5-5.0) H 01/11/23 08:43 Chloride 102 mmol/L (101-111) 01/11/23 08:43 Carbon Dioxide 22 mmol/L (21-32) 01/11/23 08:43 Anion Gap 11.0 (6-13) 01/11/23 08:43 BUN 78 mg/dL (6-20) H 01/11/23 08:43 Creatinine 2.5 mg/dL (0.6-1.2) H 01/11/23 08:43 Estimated GFR (MDRD) 30 (>89) L 01/11/23 08:43 Glucose 315 mg/dL (70-100) H 01/11/23 08:43 POC Whole Bld Glucose 358 mg/dL (70 - 100) H 01/11/23 11:08 Estimat Average Glucose 160 mg/dL (70-100) H 01/10/23 04:51 Hemoglobin A1c % 7.2 % (4.27-6.07) H 01/10/23 04:51 Uric Acid 6.4 mg/dL (2.6-7.2) 01/09/23 04:34 Calcium 8.3 mg/dL (8.5-10.3) L 01/11/23 08:43 Magnesium 1.7 mg/dL (1.7-2.8) 01/09/23 04:34 Total Bilirubin 0.4 mg/dL (0.2-1.0) 01/08/23 10:40 AST 24 IU/L (10-42) 01/08/23 10:40 ALT 25 IU/L (10-60) 01/08/23 10:40 Alkaline Phosphatase 67 IU/L (42-121) 01/08/23 10:40 Troponin I High Sens 30.2 ng/L (2.3-19.7) H* 01/08/23 10:40 B-Natriuretic Peptide 189 pg/mL (5-100) H 01/08/23 10:40 Total Protein 7.7 g/dL (6.7-8.2) 01/08/23 10:40 Albumin 3.1 g/dL (3.2-5.5) L 01/08/23 10:40 Globulin 4.6 g/dL (2.1-4.2) H 01/08/23 10:40 Albumin/Globulin Ratio 0.7 (1.0-2.2) L 01/08/23 10:40 Lipase 51 U/L (22-51) 01/08/23 10:40 Vitamin B12 181 pg/mL (180-914) 01/10/23 04:51 Nasal Adenovirus (PCR) NOT DETECTED 01/08/23 10:40 Nasal B. parapertussis DNA (PCR) NOT DETECTED 01/08/23 10:40 Nasal Coronavir 229E PCR NOT DETECTED 01/08/23 10:40 Nasal Coronavir HKU1 PCR NOT DETECTED 01/08/23 10:40 Nasal Coronavir NL63 PCR NOT DETECTED 01/08/23 10:40 Nasal Coronavir OC43 PCR NOT DETECTED 01/08/23 10:40 Nasal Enterovir/Rhinovir PCR NOT DETECTED 01/08/23 10:40 Nasal Influenza B PCR NOT DETECTED 01/08/23 10:40 Nasal Influenza A PCR NOT DETECTED 01/08/23 10:40 Nasal Parainfluen 1 PCR NOT DETECTED 01/08/23 10:40 Nasal Parainfluen 2 PCR NOT DETECTED 01/08/23 10:40 Nasal Parainfluen 3 PCR NOT DETECTED 01/08/23 10:40 Nasal Parainfluen 4 PCR NOT DETECTED 01/08/23 10:40 Nasal RSV (PCR) NOT DETECTED 01/08/23 10:40 Nasal B.pertussis DNA PCR NOT DETECTED 01/08/23 10:40 Nasal C.pneumoniae (PCR) NOT DETECTED 01/08/23 10:40 [place] Human Metapneumo PCR NOT DETECTED 01/08/23 10:40 Nasal M.pneumoniae (PCR) NOT DETECTED 01/08/23 10:40 Nasal SARS-CoV-2 (PCR) NOT DETECTED 01/08/23 10:40
[2023-01-11] MEDS ORDERED: SODIUM ZIRCONIUM CYCLOSILICATE 5 GM PACKET PO SCH (15:00)
[2023-01-11] MEDS ORDERED: SODIUM CHLORIDE 0.9% 1,000 ML IV SCH (15:00)
[2023-01-11] MEDS: ATORVASTATIN 40 MG TABLET PO SCH (21:34)
[2023-01-11] MEDS: MONTELUKAST 10 MG TABLET PO SCH (21:34)
[2023-01-11] MEDS: DOXAZOSIN 4 MG TABLET PO SCH (21:35)
[2023-01-12] MEDS: SODIUM CHLORIDE FLUSH 0.9% 10 ML SYRINGE IVP SCH ×3 (00:27→16:50)
[2023-01-12 05:05] LABS: HCT - HEMATOCRIT 38.5 % (42.0-52.0); HGB - HEMOGLOBIN 11.5 g/dL (14.0-18.0); LYMPHOCYTES # (AUTO) 0.2 10^3/uL (1.5-3.5); LYMPHOCYTES % (AUTO) 2.5 %; MEAN CORPUSCULAR HEMOGLOBIN 24.9 pg (27.0-31.0); MEAN CORPUSCULAR HGB CONC 29.9 g/dL (32.0-36.0); MEAN CORPUSCULAR VOLUME 83.5 fL (80.0-94.0); MEAN PLATELET VOLUME 11.3 fL (7.4-11.4); MONOCYTES # (AUTO) 0.5 10^3/uL (0.0-1.0); MONOCYTES % (AUTO) 5.8 %; NEUTROPHILS # (AUTO) 7.2 10^3/uL (1.5-6.6); NEUTROPHILS % (AUTO) 91.2 %; PLT - PLATELET COUNT 132 10^3/uL (130-450); RED BLOOD COUNT 4.61 10^6/uL (4.70-6.10); WHITE BLOOD COUNT 7.9 x10^3/uL (4.8-10.8)
[2023-01-12 05:20] LABS: CALCIUM 8.2 mg/dL (8.5-10.3); CREATININE 2.4 mg/dL (0.6-1.2); POTASSIUM 5.8 mmol/L (3.5-5.0)
[2023-01-12] MEDS: BUDESONIDE 0.5 MG/2 ML NEB INH SCH ×2 (07:25→19:09)
[2023-01-12] MEDS: IPRATROPIUM/ALBUTEROL 3 ML NEB INH SCH ×6 (07:25→19:09)
[2023-01-12] MEDS: INSULIN LISPRO 300 UNIT/3 ML PEN SUBQ SCH ×7 (08:18→20:53)
[2023-01-12] MEDS: INSULIN GLARGINE-YFGN 300 UNIT/3 ML PEN SUBQ SCH ×2 (08:19→20:53)
[2023-01-12] MEDS: VERAPAMIL ER 120 MG TABLET PO SCH (08:20)
[2023-01-12] MEDS: allopurinoL 100 MG TABLET PO SCH (08:21)
[2023-01-12] MEDS: GABAPENTIN 400 MG CAPSULE PO SCH (08:21)
[2023-01-12] MEDS: cefTRIAXone 1 GM in SODIUM CHLORIDE 0.9% MINIBAG 100 ML IV SCH (08:21)
[2023-01-12] MEDS: APIXABAN 2.5 MG TABLET PO SCH ×2 (08:21→20:52)
[2023-01-12] MEDS: methylPREDNISolone SUCCINATE 40 MG/ML VIAL IVP SCH ×2 (08:21→20:53)
[2023-01-12] MEDS: guaiFENesin 600 MG TABLET PO SCH ×2 (08:21→20:53)
[2023-01-12] MEDS: CYANOCOBALAMIN 500 MCG TABLET PO SCH (08:21)
[2023-01-12] MEDS ORDERED: SODIUM CHLORIDE 0.9% 1,000 ML IV SCH (11:00)
[2023-01-12] MEDS ORDERED: SODIUM ZIRCONIUM CYCLOSILICATE 5 GM PACKET PO ONE (12:00)
--- NOTE | 2023-01-12 15:20 | PROVIDER PROGRESS NOTE ---
Assessment/Plan - Problem List (1) Acute respiratory failure with hypoxia Assessment/Plan: The cause appears to be a COPD exacerbation, and possibly also a CHF exacerbation. He had rales and wheezing on the day of admission, for the last few days he has only had intermittent wheezing. Plan: Continue with supplemental O2, goal oxygen saturations will be 88% to 93%. Treat the underlying problems Cont PT and OT Plan to do an oximetry walk test on the day of discharge since seen may now need home oxygen order (2) COPD exacerbation Conclusion/Plan: He has a history of moderate COPD. He does not take scheduled inhalers, unclear why. He is normally not on home oxygen. His spt cx had WBC and few squamous cells and grew only normal oral bell. Today he is wheezing more and the only change in treatment was decreasing IV steroids from 3 times daily to twice daily Plan: Cont IV Solu-Medrol BID today Due to his slow improvement, cont the added Pulmicort nebulized twice daily Cont QID scheduled and as needed DuoNebs Cont Mucinex for pulmonary toilet, prn Tessalon perles and prn Robitussin for persistent cough Cont new nightly Montelukast Complete a course of oral Zithromax and IV ceftriaxone empirically. (3) Acute on CKD I reviewed all his current labs. His creatinine has run about 1.4 for the last 4 years. At admission his creatinine was 1.5. After getting IV Lasix several doses this adm, his creatinine juli to 1.7>> 2.0>> 2.4. Yesterday 01/11, his BUN/creat was 78/2.5>> today BUN/creat is 98/2.4. We stopped IV Lasix 01/09, due to worsening BUN/creat. Plan: Will not start daily spironolactone, due to high BUN/creat today Will give another 1L of NS at 50 cc/hr Remain off Lasix Avoid nephrotoxins Follow BMP daily (4) Hyperkalemia Likely from the [facility] Plan: Will order po Lokelma again x1 Cont the Low K diet order (5) CHF exacerbation Conclusion/Plan: His Echo which was just done 4 months ago shows a preserved LVEF. Very likely the cause of this CHF exacerbation was discontinuation of his Lasix a week ago We stopped IV Lasix 01/09, due to worsening BUN/creat. Plan: Will recheck the LVEF and RVEF with a limited 2D Echo. (It was ordered yesterday, on a Saturday, and we have no ammonia refrigeration technician here except Saturday through ) He will get 1L of saline slowly (for the high BUN/creat). Will not start daily spironolactone, due to further increase of BUN/creat today We will continue his meds for rate control Cont a low salt diet Follow I's and O's and daily weights (6) DM type 2 From his med list, at admission, it was not clear that he was a diabetic, there is no oral agent or insulin, only Tradjenta. After starting IV steroids, his glucoses are running in the 400s. Insulin dosing was increasewd yesterday Plan: Cont DM diet plus the low salt diet, hypoglycemia protocol, ac and hs fingerstick checks, sliding scale coverage and will check his A1c (7) Paroxysmal atrial fibrillation Conclusion/Plan: Adm EKG showed NSR. Telemetry has shown sinus rhythm with PACs and short runs of Wenckebach, and short PSVT with intermittent block. Plan: Continue with his Verapamil for rate control and his DOAC for stroke Prophylaxis (we needed to substitute Eliquis for his Xarelto, since Xarelto is not on hospital formulary). (8) Cor pulmonale Conclusion/Plan: As per Echo done 4 months ago With IV BID Lasix, his BP dropped, signifying that his LV preload is very fluid sensitive, which can be explained by this Cor Pulmonale when over-diuresed. Plan: Remain off the IV Lasix, do not start the planned spironolactone yet Follow I's and O's and daily weights Treat the underlying cause for hypoxia, his COPD (9) Hx of gout Conclusion/Plan: The recent history is important in that his Lasix was discontinued a week ago because added to his gout, probably by elevating uric acid level. His uric acid level here was 6.4, WNL Plan: Will probably eventually use Spironolactone not Lasix We will continue his allopurinol He will be on IV steroids therefore if there is any gouty attack, the steroids would help with that currently. - Current Meds Current Meds: Current Medications Generic Name Dose Route Start Last Admin Trade Name Freq PRN Reason Stop Dose Admin Acetaminophen 650 mg 01/08/23 13:10 01/09/23 20:51 Acetaminophen 325 Mg Tablet PO 650 mg Q4HR PRN Administration Pain 1 to 4, or Fever Albuterol/Ipratropium 3 ml 01/08/23 13:15 01/10/23 01:10 Ipratropium/Albuterol 3 Ml Neb INH 3 ml Q4HR PRN Administration Wheezing Albuterol/Ipratropium 3 ml 01/08/23 15:00 01/12/23 11:20 Ipratropium/Albuterol 3 Ml Neb INH 3 ml RTQID LINO Administration Allopurinol 100 mg 01/09/23 09:00 01/12/23 08:21 Allopurinol 100 Mg Tablet PO 100 mg DAILY LINO Administration Apixaban 2.5 mg 01/08/23 21:00 01/12/23 08:21 Apixaban 2.5 Mg Tablet PO 2.5 mg BID LINO Administration Atorvastatin Calcium 40 mg 01/08/23 21:00 01/11/23 21:34 Atorvastatin 40 Mg Tablet PO 40 mg QPM LINO Administration Benzonatate 100 mg 01/10/23 17:18 01/11/23 02:53 Benzonatate 100 Mg Capsule PO 100 mg TID PRN Administration Cough Budesonide 0.5 mg 01/10/23 08:11 01/12/23 07:25 Budesonide 0.5 Mg/2 Ml Neb INH 0.5 mg RTBID LINO Administration Cyanocobalamin 500 mcg 01/10/23 13:00 01/12/23 08:21 Cyanocobalamin 500 Mcg Tablet PO 500 mcg DAILY LINO Administration Doxazosin Mesylate 4 mg 01/08/23 21:00 01/11/23 21:35 Doxazosin 4 Mg Tablet PO 4 mg QPM LINO Administration Gabapentin 400 mg 01/09/23 09:00 01/12/23 08:21 Gabapentin 400 Mg Capsule PO 400 mg DAILY LINO Administration Guaifenesin 600 mg 01/08/23 21:00 01/12/23 08:21 Guaifenesin 600 Mg Tablet PO 600 mg BID LINO Administration Guaifenesin/Codeine Phosphate 5 ml 01/10/23 17:18 01/11/23 18:41 Guaifenesin/Codeine 5 Ml Udc PO 5 ml Q6HR PRN Administration Cough Sodium Chloride 1,000 mls @ 50 mls/hr 01/12/23 11:00 01/12/23 13:15 Normal Saline 0.9% IV 01/13/23 06:59 50 mls/hr .Q20H LINO Administration Insulin Glargine-yfgn 10 unit 01/11/23 23:00 01/12/23 08:19 Insulin Glargine-Yfgn 300 Unit/3 Ml Pen SUBQ 10 unit BID LINO Administration Insulin Human Lispro 4 unit 01/11/23 12:00 01/12/23 12:35 Insulin Lispro 300 Unit/3 Ml Pen SUBQ 4 unit TIDWM PENDING SALE TO [facility] Administration Protocol Insulin Human Lispro 3 - 11 unit 01/11/23 12:00 01/12/23 12:36 Insulin Lispro 300 Unit/3 Ml Pen SUBQ 7 unit 0800,1200,1700,2100 LINO Administration Protocol Methylprednisolone 40 mg 01/11/23 21:00 01/12/23 08:21 Methylprednisolone Succinate 40 Mg/Ml Vial IVP 40 mg BID LINO Administration Montelukast Sodium 10 mg 01/08/23 21:00 01/11/23 21:34 Montelukast 10 Mg Tablet PO 10 mg QPM LINO Administration Sodium Chloride 10 ml 01/08/23 13:10 01/11/23 05:39 Sodium Chloride Flush 0.9% 10 Ml Syringe IVP 10 ml PRN PRN Administration NEEDED PER PROVIDER ORDERS Sodium Chloride 10 ml 01/08/23 17:00 01/12/23 08:22 Sodium Chloride Flush 0.9% 10 Ml Syringe IVP Not Given 0100,0900,1700 PENDING SALE TO [facility] Verapamil HCl 240 mg 01/09/23 09:00 01/12/23 08:20 Verapamil Er 120 Mg Tablet PO 240 mg DAILY LINO Administration - Lab Result Fish Bone Diagrams: 01/12/23 04:49 01/12/23 04:49 - Additional Planning My Orders: My Active Orders 01/11/23 14:26 Echo Limited [ECHO] Routine 01/11/23 21:00 methylPREDNISolone SUCCINATE [SOLU-Medrol (40MG VIAL)] 40 mg IVP BID 01/12/23 11:00 Sodium Chloride 0.9% [Normal Saline 0.9%] 1,000 ml IV 50 mls/hr 01/13/23 05:00 BMP - BASIC METABOLIC PANEL [CHEM] DAILYLAB 01/14/23 05:00 BMP - BASIC METABOLIC PANEL [CHEM] DAILYLAB Objective Vital Signs: Vital Signs - 24 hr 01/11/23 01/11/23 01/11/23 15:30 15:59 19:40 Temperature 36.5 C Heart Rate 92 90 Heart Rate [ 90 Brachial] Respiratory 20 18 20 Rate Blood Pressure 116/58 L [Left Brachial artery] O2 Saturation 91 L If not protocol 1 2 1 : Oxygen Flow, liters/minute 01/11/23 01/11/23 01/12/23 20:02 21:00 00:12 Temperature 36.5 C 36.3 C L Heart Rate Heart Rate [ 93 82 Brachial] Respiratory 20 24 Rate Blood Pressure 104/60 118/61 [Left Brachial artery] O2 Saturation 90 L 91 L If not protocol 1 2 2 : Oxygen Flow, liters/minute 01/12/23 01/12/23 01/12/23 03:48 07:28 08:01 Temperature 36.4 C L 36.4 C L Heart Rate 81 Heart Rate [ 82 84 Brachial] Respiratory 22 18 20 Rate Blood Pressure 129/59 L 122/61 [Left Brachial artery] O2 Saturation 93 94 If not protocol 2 1.5 2 : Oxygen Flow, liters/minute 01/12/23 01/12/23 11:23 13:00 Temperature 36.6 C Heart Rate 84 Heart Rate [ 85 Brachial] Respiratory 18 17 Rate Blood Pressure 111/63 [Left Brachial artery] O2 Saturation 92 If not protocol 2 2 : Oxygen Flow, liters/minute Oxygen O2 Source Nasal cannula Oxygen Flow Rate 4 I&O (Last 24 Hrs): Intake and Output Totals x24h 01/10/23 01/11/23 01/12/23 23:59 23:59 23:59 Intake Total 1600 1630 2200 Output Total 1050 725 950 Balance 098 932 5176 - Results Results: Laboratory Results WBC 7.9 x10^3/uL (4.8-10.8) 01/12/23 04:49 RBC 4.61 10^6/uL (4.70-6.10) L 01/12/23 04:49 Hgb 11.5 g/dL (14.0-18.0) L 01/12/23 04:49 Hct 38.5 % (42.0-52.0) L 01/12/23 04:49 MCV 83.5 fL (80.0-94.0) 01/12/23 04:49 MCH 24.9 pg (27.0-31.0) L 01/12/23 04:49 MCHC 29.9 g/dL (32.0-36.0) L 01/12/23 04:49 RDW 15.0 % (12.0-15.0) 01/12/23 04:49 Plt Count 132 10^3/uL (130-450) 01/12/23 04:49 MPV 11.3 fL (7.4-11.4) 01/12/23 04:49 Neut # (Auto) 7.2 10^3/uL (1.5-6.6) H 01/12/23 04:49 Lymph # (Auto) 0.2 10^3/uL (1.5-3.5) L 01/12/23 04:49 [place] # (Auto) 0.5 10^3/uL (0.0-1.0) 01/12/23 04:49 Eos # (Auto) 0.0 10^3/uL (0.0-0.7) 01/12/23 04:49 Baso # (Auto) 0.0 10^3/uL (0.0-0.1) 01/12/23 04:49 Absolute Nucleated RBC 0.00 x10^3/uL 01/12/23 04:49 Nucleated RBC % 0.0 /100WBC 01/12/23 04:49 Sodium 137 mmol/L (135-145) 01/12/23 04:49 Potassium 5.8 mmol/L (3.5-5.0) H 01/12/23 04:49 Chloride 103 mmol/L (101-111) 01/12/23 04:49 Carbon Dioxide 23 mmol/L (21-32) 01/12/23 04:49 Anion Gap 11.0 (6-13) 01/12/23 04:49 BUN 97 mg/dL (6-20) H* 01/12/23 04:49 Creatinine 2.4 mg/dL (0.6-1.2) H 01/12/23 04:49 Estimated GFR (MDRD) 31 (>89) L 01/12/23 04:49 Glucose 220 mg/dL (70-100) H 01/12/23 04:49 POC Whole Bld Glucose 254 mg/dL (70 - 100) H 01/12/23 11:25 Estimat Average Glucose 160 mg/dL (70-100) H 01/10/23 04:51 Hemoglobin A1c % 7.2 % (4.27-6.07) H 01/10/23 04:51 Uric Acid 6.4 mg/dL (2.6-7.2) 01/09/23 04:34 Calcium 8.2 mg/dL (8.5-10.3) L 01/12/23 04:49 Magnesium 1.7 mg/dL (1.7-2.8) 01/09/23 04:34 Total Bilirubin 0.4 mg/dL (0.2-1.0) 01/08/23 10:40 AST 24 IU/L (10-42) 01/08/23 10:40 ALT 25 IU/L (10-60) 01/08/23 10:40 Alkaline Phosphatase 67 IU/L (42-121) 01/08/23 10:40 Troponin I High Sens 30.2 ng/L (2.3-19.7) H* 01/08/23 10:40 B-Natriuretic Peptide 189 pg/mL (5-100) H 01/08/23 10:40 Total Protein 7.7 g/dL (6.7-8.2) 01/08/23 10:40 Albumin 3.1 g/dL (3.2-5.5) L 01/08/23 10:40 Globulin 4.6 g/dL (2.1-4.2) H 01/08/23 10:40 Albumin/Globulin Ratio 0.7 (1.0-2.2) L 01/08/23 10:40 Lipase 51 U/L (22-51) 01/08/23 10:40 Vitamin B12 181 pg/mL (180-914) 01/10/23 04:51 Nasal Adenovirus (PCR) NOT DETECTED 01/08/23 10:40 Nasal B. parapertussis DNA (PCR) NOT DETECTED 01/08/23 10:40 Nasal Coronavir 229E PCR NOT DETECTED 01/08/23 10:40 Nasal Coronavir HKU1 PCR NOT DETECTED 01/08/23 10:40 Nasal Coronavir NL63 PCR NOT DETECTED 01/08/23 10:40 Nasal Coronavir OC43 PCR NOT DETECTED 01/08/23 10:40 Nasal Enterovir/Rhinovir PCR NOT DETECTED 01/08/23 10:40 Nasal Influenza B PCR NOT DETECTED 01/08/23 10:40 Nasal Influenza A PCR NOT DETECTED 01/08/23 10:40 Nasal Parainfluen 1 PCR NOT DETECTED 01/08/23 10:40 Nasal Parainfluen 2 PCR NOT DETECTED 01/08/23 10:40 Nasal Parainfluen 3 PCR NOT DETECTED 01/08/23 10:40 Nasal Parainfluen 4 PCR NOT DETECTED 01/08/23 10:40 Nasal RSV (PCR) NOT DETECTED 01/08/23 10:40 Nasal B.pertussis DNA PCR NOT DETECTED 01/08/23 10:40 Nasal C.pneumoniae (PCR) NOT DETECTED 01/08/23 10:40 Vijay Human Metapneumo PCR NOT DETECTED 01/08/23 10:40 Nasal M.pneumoniae (PCR) NOT DETECTED 01/08/23 10:40 Nasal SARS-CoV-2 (PCR) NOT DETECTED 01/08/23 10:40
[2023-01-12] MEDS: ATORVASTATIN 40 MG TABLET PO SCH (20:53)
[2023-01-12] MEDS: DOXAZOSIN 4 MG TABLET PO SCH (20:53)
[2023-01-12] MEDS: MONTELUKAST 10 MG TABLET PO SCH (20:53)
[2023-01-13] MEDS: SODIUM CHLORIDE FLUSH 0.9% 10 ML SYRINGE IVP SCH ×2 (00:30→09:15)
[2023-01-13] MEDS: IPRATROPIUM/ALBUTEROL 3 ML NEB INH PRN (02:14)
[2023-01-13] MEDS: IPRATROPIUM/ALBUTEROL 3 ML NEB INH SCH ×2 (07:44→12:40)
[2023-01-13] MEDS: BUDESONIDE 0.5 MG/2 ML NEB INH SCH (07:44)
[2023-01-13 08:56] LABS: CALCIUM 8.3 mg/dL (8.5-10.3); POTASSIUM 4.7 mmol/L (3.5-5.0)
[2023-01-13] MEDS: allopurinoL 100 MG TABLET PO SCH (09:11)
[2023-01-13] MEDS: guaiFENesin 600 MG TABLET PO SCH (09:12)
[2023-01-13] MEDS: methylPREDNISolone SUCCINATE 40 MG/ML VIAL IVP SCH (09:12)
[2023-01-13] MEDS: CYANOCOBALAMIN 500 MCG TABLET PO SCH (09:12)
[2023-01-13] MEDS: INSULIN GLARGINE-YFGN 300 UNIT/3 ML PEN SUBQ SCH (09:12)
[2023-01-13] MEDS: GABAPENTIN 400 MG CAPSULE PO SCH (09:12)
[2023-01-13] MEDS: APIXABAN 2.5 MG TABLET PO SCH (09:12)
[2023-01-13] MEDS: INSULIN LISPRO 300 UNIT/3 ML PEN SUBQ SCH ×4 (09:13→12:22)
[2023-01-13] MEDS: VERAPAMIL ER 120 MG TABLET PO SCH (09:16)
--- NOTE | 2023-01-13 12:01 | Discharge Plan ---
Discharge Plan Problem Reviewed?: Yes Disposition: Home, Self Care Condition: Fair Prescriptions: Ipratropium/Albuterol [Combivent Respimat] 2 puffs IH Q4H PRN #1 ea PRN Reason: Wheezing Ipratropium/Albuterol [Duoneb] 3 ml INH QID #120 ea Blood-Glucose Meter [Glucometer] 1 each ACHS #1 each Insulin Glargine [Lantus Solostar] 10 unit SQ BID #1 ea guaiFENesin [Mucinex] 600 mg PO BID #14 tab Insulin Aspart [NovoLOG] 5 unit SUBQ TIDWM #1 ea predniSONE [Prednisone 21-tab dose pack] 5 mg PO UD #1 each Montelukast [Singulair] 10 mg PO QPM #30 tab Lancet/Gluc Test Strip/[place] [Tempo Refill Kit] 1 each ACHS #1 packet Cyanocobalamin [Vitamin B-12] 500 mcg PO DAILY #30 tab allopurinoL [Zyloprim] 100 mg PO DAILY #30 tab Diet: Diabetic Activity Restrictions: Activity as Tolerated Shower Restrictions: No Driving Restrictions: Yes Assistance Devices: Walker Weight Bearing: Full Weight Instruction Topics: COPD, Oxygen Home Use, Coughing Techniques Dc, Breathing Pursed Lip Dc, Nebulizer Use Health Concerns: You were hospitalized to treat shortness of breath which was found to be from a COPD exacerbation. This was partly caused by bronchitis and you finished antibiotics. It was also caused by you not being on scheduled doses of inhaler medicines. You are being discharged home today with new medications to take for your lungs every single day, lifelong. The new prescriptions were electronically sent to your pharmacy. You were tested to see if you need home oxygen and you do: The setting should be at 1 L/min at rest or with sleep and 5 L/min with activity. You also have been ordered to get a home nebulizer machine and nebulized inhaler medicines. You may use the pocket inhaler when you are traveling, or for quicker inhalation therapy than a nebulizer, when you are at home. You qualify to attend pulmonary rehab at the cardiac and pulmonary rehab center here on the ground floor. You would need a referral from your primary care provider to start that. Most of your other pre-hospital medications may be continued. Please follow the new list of medications, accompanying these instructions, to take now. Plan of Treatment: As above. Care Goals: Improvement in symptoms and stabilization are the goals. Assessment: Patient understands and is agreeable with the plan. These instructions are also provided for his daughter, with whom he lives and helps with his care. Additional Instructions or Follow Up instructions: If you have new or worsening symptoms, call your PCP's office for advice, or come to the ER. Follow-Up Care: [facility] - Pulmonary No Smoking: If you smoke, Please STOP! Call for help. Follow-up with: Ester Olson ARNP [Primary Care Provider] -
[2023-01-13 13:11] VITALS: BP 151/59
--- NOTE | 2023-01-13 14:20 | DISCHARGE SUMMARY ---
Discharge Summary Admit Date: 01/08/23 Discharge Date: 01/13/23 Discharging Provider: Dr. Stacy Whiting Primary Care Provider: HELGA Olson Condition at Discharge: Fair Discharge Disposition: 01 Home, Self Care - HPI History of Present Illness: This is an 87-year-old -[place]ian male who has a history of hypertension, gout, paroxysmal Afib and is on Xarelto, has COPD, pulmonary hypertension and some granulomatous lung disease, he only takes inhalers prn and is NOT on home oxygen. He was taken off of his Lasix recently by a provider because it was worsening his gout. In the last 5 days he has noticed worsening shortness of breath and today was short of breath at rest and presented to a Walk In Clinic and had an O2 saturation of 80% on room air. An ambulance was called and he was brought to our Er, where his room air saturation was 86% and then oxygen was res umed at 2 L. This improved his sats to 92%. He was also found to have CHF on chest x-ray and was given Lasix 40 mg IV. His labs show he was COVID-negative. He also received Decadron IV and nebulizer treatment x1. The ED provider called me on the Hospitalist team and we discussed managing his acute respiratory failure with hypoxia which appears to be from COPD exacerbation and a CHF exacerbation, the latter probably from being taken off his Lasix. This patient had an Echocardiogram ordered by Dr Michel, which was done here just 4 months ago (in July 2022), and it showed normal LVEF but septal flattening and moderate RV dilation seen (consistent with Cor Pulmonale), and IVC dilation and pulm hypertension with a PA pressure of 47 mmHg. His CODE STATUS was discussed, he wants to be a Full Code. - HOSPITAL COURSE Hospital Course: (1) Acute respiratory failure with hypoxia The cause appeared to be a COPD exacerbation, and possibly also a CHF exacerbation. He had rales and wheezing on the day of admission,then onlydays he wheezing, which improved with neb treatments. On the day of discharge she underwent an oximetry walk test: At rest on room air his O2 saturation was 88%, at rest on 1 L/min O2 via n.c. his O2 sat was 90%. With ambulation on room air his O2 sat was 82%, on 4 L/min O2 via n.c. with ambulation his O2 sat was 90%. I am ordering new home oxygen set at 1 L/min at rest and sleep, and 4 L/min with activity, to treat his COPD and to prevent rehospitalizations. (2) COPD exacerbation He has a history of moderate COPD. He only uses inhalers prn, he does not take scheduled inhalers, unclear why. He was treated here with IV steroids, nebulized bronchodilators and nebulized steroids, montelukast, Mucinex for pulmonary toilet and supplemental oxygen. He finished a course of empiric Zithromax and Ceftriaxone; his spt cx had WBC (and only few squamous cells) but grew only normal oral bell. At discharge, a new nebulizer machine and DuoNeb treatments nebulized were ordered, along with new Montelukast at at bedtime, continued Mucinex for a week, and oral Prednisone with a rapid taper to off. This patient may need referral to a Adjunct Professor Of Law for further management. He also qualifies, and would benefit from, attending pulmonary rehab in the cardiac and pulmonary rehab center on the ground floor here, in order from the PCP would be required. (3) CHF exacerbation His Echo which was just done 4 months ago showed a preserved LVEF. A CHF exacerbation was felt to be from discontinuation of his Lasix a week ago. He got 3 doses of iv Lasix here, but that caused significant ZAKIYA and Hyperkalemia and Lasix was stopped. He needed gentle iv hydration and no other diuretic was used. (4) Acute on CKD His creatinine has run 1.4 for the last 4 years. At admission his creatinine was 1.5. After getting IV Lasix several doses this adm, his creatinine juli to 1.7>> 2.0>> 2.4. We stopped IV Lasix 01/09, due to worsening BUN/creat, but his BUN/creat continued to rise 78/2.5>> BUN/creat is 98/2.4. He received 1 L of saline each of the 2 days before discharge, infused very slowly because of his CHF history. This delayed his discharge. On the day of discharge his BUN/creatinine were 80/2.0. Unfortunately, no Lasix could be resumed upon going home after discharge. (5) Hyperkalemia From the ZAKIYA. His K was elevated for several days, as high as 5.9 and this prolonged his hospitalization. He got Insulin and also needed several po doses of Lokelma. His serum K was 4.7 on day of discharge. (6) DM type 2 From his med list, he was only on Tradjenta. He said Metformin was stopped in order to make his med list shorter. He used to be on subq insulin when he lived in [place]. After starting IV steroids here, his glucoses were running in the 400s. Insulin dosing was adjusted and he was discharged home with an order to be back on sq Insulin: Lantus 10 U BID and Reg Insulin 5 U TID with meals. Continue a DM diet and resuming ac and hs fingerstick checks was advised and supplies were ordered. Since his Prednisone will be tapered to off, he may not need to be on Insulin lifelong. His DM and Insulin management will need close follow-up and management with his PCP. (7) Paroxysmal atrial fibrillation Admission EKG showed NSR. Telemetry showed PACs, short PSVT and short runs of [place]. We continued him on his Verapamil for rate control and his DOAC for stroke prophylaxis (we needed to substitute Eliquis for his Xarelto, since Xarelto is not on hospital formulary). (8) Cor pulmonale As per Echo done 4 months ago. After getting IV Lasix, his BP dropped, signifying that his LV preload is very fluid sensitive, which can be explained by this Cor Pulmonale and if he is over-diuresed. (9) Hx of gout The recent history was that his Lasix was discontinued a week ago because it added to his gout, probably by elevating uric acid level. His uric acid level here was 6.4, WNL. We continued his Allopurinol. - ALLERGIES Allergies/Adverse Reactions: Allergies Allergy/AdvReac Type Severity Reaction Status Date / Time No Known Drug Allergies Allergy Verified 01/08/23 10:03 - MEDICATIONS Home Medications: Ambulatory Orders Medication Instructions Recorded Confirmed Albuterol 2.5 mg INH Q4H PRN 04/12/21 01/08/23 Doxazosin [Cardura] 4 mg PO DAILY 04/12/21 01/08/23 Gabapentin [Neurontin] 400 mg PO DAILY 04/12/21 01/08/23 Rivaroxaban [Xarelto] 15 mg PO DAILY 04/12/21 01/08/23 Verapamil HCl [Calan Sr] 240 mg PO DAILY 04/12/21 01/08/23 Linagliptin [Tradjenta] 5 mg PO DAILY 05/10/21 01/08/23 Fluticasone Propion/Salmeterol 1 puffs INH BID 01/08/23 01/08/23 [Fluticasone-Salmeterol 250-50] Rosuvastatin Calcium [Crestor] 20 mg PO DAILY 01/08/23 01/08/23 Acetaminophen [Tylenol] 650 mg PO Q4HR PRN tab 01/13/23 Blood-Glucose Meter [Glucometer] 1 each [facility] #1 each 01/13/23 Cyanocobalamin [Vitamin B-12] 500 mcg PO DAILY #30 tab 01/13/23 Insulin Aspart [NovoLOG] 5 unit SUBQ TIDWM #1 ea 01/13/23 Insulin Glargine [Lantus Solostar] 10 unit SQ BID #1 ea 01/13/23 Ipratropium/Albuterol [Combivent 2 puffs IH Q4H PRN #1 ea 01/13/23 Respimat] Ipratropium/Albuterol [Duoneb] 3 ml INH QID #120 ea 01/13/23 Lancet/Gluc Test Strip/[place] 1 each ACHS #1 packet 01/13/23 [Tempo Refill Kit] Montelukast [Singulair] 10 mg PO QPM #30 tab 01/13/23 allopurinoL [Zyloprim] 100 mg PO DAILY #30 tab 01/13/23 guaiFENesin [Mucinex] 600 mg PO BID #14 tab 01/13/23 predniSONE [Prednisone 21-tab dose 5 mg PO UD #1 each 01/13/23 pack] - PHYSICAL EXAM AT DISCHARGE General Appearance: positive: Mild distress (Tachypneic for a prolonged time, after walking, even on O2 via n.c.), Other (Very pleasant, obese, elderly -[place]ian male.) Eyes Bilateral: positive: Normal inspection, No lid inflammation ENT: positive: ENT inspection nml, No signs of dehydration, Other (edentulous) Neck: positive: Nml inspection, Other (Cannot evaluate JVP due to obese) Respiratory: positive: Wheezes (Fine wheezes, prolonged expiratory phase, no rales.) Cardiovascular: positive: Regular rate & rhythm, No murmur (Very distant heart sounds due to obesity and due to wheezes) Abdomen: positive: Non-tender, Other (Very obese, possibly distended from gas, cannot rule out organomegaly, distant bowel sounds.) Skin: positive: Warm, Dry Extremities: positive: Non-tender, Other (1+ pretibial edema) Neurologic/Psychiatric: positive: Oriented x3, Motor nml - LABS Result Diagrams: 01/12/23 04:49 01/13/23 08:38 - DIAGNOSTIC IMAGING Diagnostic Imaging Results: Final report reviewed - FOLLOW UP Follow Up: See PCP in the next 1 to 2 weeks for hospital follow-up visit. Consider referral to Adjunct Professor Of Law. Consider referral to pulmonary rehab. - TIME SPENT Time Spent in Discharge (Minutes): 65
== END 2023-01-13 14:30 | disposition home or self-care (01) | DRG 291 ==
LOC: EDUNIT# → ED 09:42 → MS2 13:10
PROVIDERS: ADMIT Internal Medicine; ATTEND Internal Medicine
DX: I13.0 Hypertensive heart and chronic kidney disease with heart failure and stage 1 through stage 4 chronic kidney disease, or unspecified chronic kidney disease (principal); J44.9 Chronic obstructive pulmonary disease, unspecified; I27.20 Pulmonary hypertension, unspecified; I48.91 Unspecified atrial fibrillation; J96.01 Acute respiratory failure with hypoxia; E11.9 Type 2 diabetes mellitus without complications; J44.1 Chronic obstructive pulmonary disease with (acute) exacerbation; Z20.822 Contact with and (suspected) exposure to COVID-19; N17.9 Acute kidney failure, unspecified; Z68.41 Body mass index [BMI] 40.0-44.9, adult; M10.9 Gout, unspecified; M54.9 Dorsalgia, unspecified; I27.29 Other secondary pulmonary hypertension; I48.0 Paroxysmal atrial fibrillation; I50.9 Heart failure, unspecified; D71 Functional disorders of polymorphonuclear neutrophils; T50.1X5A Adverse effect of loop [high-ceiling] diuretics, initial encounter; E11.22 Type 2 diabetes mellitus with diabetic chronic kidney disease; E66.9 Obesity, unspecified; E87.5 Hyperkalemia; N18.9 Chronic kidney disease, unspecified; N40.0 Benign prostatic hyperplasia without lower urinary tract symptoms; G89.29 Other chronic pain; K08.109 Complete loss of teeth, unspecified cause, unspecified class; Y92.239 Unspecified place in hospital as the place of occurrence of the external cause; Z79.01 Long term (current) use of anticoagulants; Z79.4 Long term (current) use of insulin; Z79.899 Other long term (current) drug therapy; Z87.891 Personal history of nicotine dependence
CPT/HCPCS: 36415; 71045; 80048; 80053; 82607; 83036; 83690; 83735; 83880; 84484; 84550; 85025; 87070; 87205; 87633; 93005; 94640; 94664; 94761; 96374; 96375; 97116; 97162; 97165; 99285; A9270; J1815; J7626

== ENCOUNTER 2023-01-24 09:50 | Outpatient (CLI) | payer MEDICARE, MEDICAID ==
[2023-01-24 12:56] LABS: CREATININE 1.4 mg/dL (0.6-1.2); POTASSIUM 5.2 mmol/L (3.5-5.0)
== END 2023-01-24 09:51 | disposition home or self-care (01) ==
LOC: LAB.N 09:50
PROVIDERS: ATTEND Family Medicine
DX: N18.30 Chronic kidney disease, stage 3 unspecified (principal)
CPT/HCPCS: 36415; 80048

== ENCOUNTER 2023-03-20 07:12 | Outpatient (CLI) | payer MEDICARE, MEDICAID ==
[2023-03-20 12:38] LABS: CHOL/HDL RATIO 1.9 (<5.0); CHOLESTEROL 104 mg/dL; HDL CHOLESTEROL 56 mg/dL; LDL CHOLESTEROL,CALCULATED 37 mg/dL; LDL/HDL RATIO 0.7 (<3.6); TRIGLYCERIDES 53 mg/dL; VLDL CHOLESTEROL 11 mg/dL
== END 2023-03-20 07:13 | disposition home or self-care (01) ==
LOC: LAB.N 07:12
PROVIDERS: ATTEND Internal Medicine Cardiovascular Disease
DX: I25.10 Atherosclerotic heart disease of native coronary artery without angina pectoris (principal)
CPT/HCPCS: 36415; 80061; 83721

== ENCOUNTER 2023-04-11 08:38 | Outpatient (CLI) | payer MEDICARE, MEDICAID ==
[2023-04-11 09:22] LABS: CALCIUM 8.5 mg/dL (8.5-10.3); CREATININE 1.8 mg/dL (0.6-1.2); POTASSIUM 4.3 mmol/L (3.5-5.0)
== END 2023-04-11 08:39 | disposition home or self-care (01) ==
LOC: LAB 08:38
PROVIDERS: ATTEND Internal Medicine Cardiovascular Disease
DX: I25.10 Atherosclerotic heart disease of native coronary artery without angina pectoris (principal)
CPT/HCPCS: 36415; 80048

== ENCOUNTER 2023-04-19 07:08 | Outpatient (CLI) | payer MEDICARE, MEDICAID ==
[2023-04-19 13:03] LABS: CALCIUM 8.7 mg/dL (8.5-10.3); CREATININE 1.9 mg/dL (0.6-1.2); POTASSIUM 4.4 mmol/L (3.5-5.0)
== END 2023-04-19 07:09 | disposition home or self-care (01) ==
LOC: LAB.N 07:08
PROVIDERS: ATTEND Internal Medicine Cardiovascular Disease
DX: I50.9 Heart failure, unspecified (principal)
CPT/HCPCS: 36415; 80048

== ENCOUNTER 2023-04-25 07:55 | Outpatient (CLI) | payer MEDICARE, MEDICAID ==
[2023-04-25 12:12] LABS: ESTIMATED AVERAGE GLUCOSE 120 mg/dL (70-100); HEMOGLOBIN A1c% 5.8 % (4.27-6.07)
[2023-04-25 12:21] LABS: MICROALBUM/CREATININE RATIO,UR 29.5 ug/mg (<30.0); MICROALBUMIN,URINE 1.3 mg/dL (0-300.0)
== END 2023-04-25 07:56 | disposition home or self-care (01) ==
LOC: LAB.N 07:55
PROVIDERS: ATTEND Nurse Practitioner
DX: E11.22 Type 2 diabetes mellitus with diabetic chronic kidney disease (principal)
CPT/HCPCS: 36415; 82043; 82570; 83036

== ENCOUNTER 2023-11-01 08:00 | Outpatient (CLI) | payer MEDICARE, MEDICAID ==
[2023-11-01 12:17] LABS: BASOPHILS % (AUTO) 0.6 %; EOSINOPHILS # (AUTO) 0.1 10^3/uL (0.0-0.7); EOSINOPHILS % (AUTO) 1.9 %; HCT - HEMATOCRIT 45.8 % (42.0-52.0); HGB - HEMOGLOBIN 14.2 g/dL (14.0-18.0); LYMPHOCYTES # (AUTO) 1.3 10^3/uL (1.5-3.5); LYMPHOCYTES % (AUTO) 25.3 %; MEAN CORPUSCULAR HEMOGLOBIN 24.7 pg (27.0-31.0); MEAN CORPUSCULAR VOLUME 79.8 fL (80.0-94.0); MONOCYTES % (AUTO) 18.1 %; NEUTROPHILS # (AUTO) 2.8 10^3/uL (1.5-6.6); NEUTROPHILS % (AUTO) 53.9 %; PLT - PLATELET COUNT 99 10^3/uL (130-450); RED BLOOD COUNT 5.74 10^6/uL (4.70-6.10); RED CELL DISTRIBUTION WIDTH 15.5 % (12.0-15.0); WHITE BLOOD COUNT 5.3 x10^3/uL (4.8-10.8)
[2023-11-01 12:34] LABS: ALBUMIN/GLOBULIN RATIO 1.1 (1.0-2.2); ALKALINE PHOSPHATASE 77 IU/L (42-121); ALT ALANINE AMINOTRANSFERASE 15 IU/L (10-60); AST ASPARTATE AMINOTRANSFERASE 19 IU/L (10-42); BILIRUBIN,TOTAL 0.6 mg/dL (0.2-1.0); BUN - BLOOD UREA NITROGEN 25 mg/dL (6-20); CALCIUM 9.7 mg/dL (8.5-10.3); CARBON DIOXIDE - CO2 25 mmol/L (21-32); CHLORIDE 109 mmol/L (101-111); CHOL/HDL RATIO 2.4 (<5.0); CHOLESTEROL 119 mg/dL; CREATININE 1.5 mg/dL (0.6-1.3); GFR - MDRD 54 (>89); GLUCOSE 97 mg/dL (74-104); HDL CHOLESTEROL 50 mg/dL; LDL CHOLESTEROL,CALCULATED 54 mg/dL; LDL/HDL RATIO 1.1 (<3.6); POTASSIUM 4.7 mmol/L (3.5-4.5); SODIUM 140 mmol/L (135-145); TOTAL PROTEIN 7.8 g/dL (6.4-8.9); TRIGLYCERIDES 74 mg/dL (48-352); VLDL CHOLESTEROL 15 mg/dL
[2023-11-01 12:39] LABS: PLATELET ESTIMATE, MANUAL DECREASED (<130,000) (NORMAL); PLATELET MORPHOLOGY 2+ LARGE PLATELETS (NORMAL); RBC MORPHOLOGY (MULTIPLE) NORMAL APPEARANCE (NORMAL)
[2023-11-01 12:45] LABS: MICROALBUM/CREATININE RATIO,UR 86.6 ug/mg (<30.0); MICROALBUMIN,URINE 5.8 mg/dL
== END 2023-11-01 08:01 | disposition home or self-care (01) ==
LOC: LAB.N 08:00
PROVIDERS: ATTEND Nurse Practitioner
DX: E11.22 Type 2 diabetes mellitus with diabetic chronic kidney disease (principal); E78.2 Mixed hyperlipidemia
CPT/HCPCS: 36415; 80053; 80061; 82043; 82570; 83721; 85025

== ENCOUNTER 2024-02-05 09:19 | Outpatient (CLI) | payer MEDICARE, MEDICAID ==
[2024-02-05 12:04] LABS: BASOPHILS % (AUTO) 0.4 %; EOSINOPHILS # (AUTO) 0.1 10^3/uL (0.0-0.7); EOSINOPHILS % (AUTO) 1.7 %; HCT - HEMATOCRIT 45.3 % (42.0-52.0); HGB - HEMOGLOBIN 13.5 g/dL (14.0-18.0); LYMPHOCYTES # (AUTO) 1.3 10^3/uL (1.5-3.5); LYMPHOCYTES % (AUTO) 28.9 %; MEAN CORPUSCULAR HEMOGLOBIN 24.9 pg (27.0-31.0); MEAN CORPUSCULAR HGB CONC 29.8 g/dL (32.0-36.0); MEAN CORPUSCULAR VOLUME 83.6 fL (80.0-94.0); MEAN PLATELET VOLUME 11.9 fL (7.4-11.4); MONOCYTES # (AUTO) 0.9 10^3/uL (0.0-1.0); MONOCYTES % (AUTO) 19.1 %; NEUTROPHILS # (AUTO) 2.3 10^3/uL (1.5-6.6); NEUTROPHILS % (AUTO) 49.5 %; PLT - PLATELET COUNT 132 10^3/uL (130-450); RED BLOOD COUNT 5.42 10^6/uL (4.70-6.10); RED CELL DISTRIBUTION WIDTH 16.1 % (12.0-15.0); WHITE BLOOD COUNT 4.6 x10^3/uL (4.8-10.8)
[2024-02-05 12:11] LABS: ESTIMATED AVERAGE GLUCOSE 131 mg/dL (70-100); HEMOGLOBIN A1c% 6.2 % (4.27-6.07)
[2024-02-05 12:26] LABS: ALBUMIN 3.8 g/dL (3.2-5.5); BILIRUBIN,TOTAL 0.5 mg/dL (0.2-1.0); CALCIUM 9.1 mg/dL (8.5-10.3); CREATININE 1.5 mg/dL (0.6-1.3); POTASSIUM 4.4 mmol/L (3.5-4.5); TOTAL PROTEIN 7.5 g/dL (6.4-8.9)
[2024-02-05 12:32] LABS: THYROID STIMULATING HORMONE 1.61 uIU/mL (0.34-5.60)
== END 2024-02-05 09:20 | disposition home or self-care (01) ==
LOC: LAB.N 09:19
PROVIDERS: ATTEND Nurse Practitioner
DX: E11.22 Type 2 diabetes mellitus with diabetic chronic kidney disease (principal); N18.30 Chronic kidney disease, stage 3 unspecified; I48.21 Permanent atrial fibrillation
CPT/HCPCS: 36415; 80053; 83036; 84443; 85025

== ENCOUNTER 2024-02-14 07:26 | Outpatient (CLI) | payer MEDICARE, MEDICAID ==
--- NOTE | 2024-02-14 20:51 | Ultrasound Report ---
PROCEDURE: Duplex Ext Veins Left INDICATIONS: PAIN IN LEFT LEG TECHNIQUE: Real-time imaging, as well as color and pulse Doppler interrogation, were performed of the lower extr emity deep veins from the inguinal ligament to the popliteal fossa. Attempted visualization of the ca lf veins was performed. COMPARISON: None. FINDINGS: The deep veins are normally compressible, and free of intraluminal thrombus. Color and pu lse Doppler demonstrate normal phasic intraluminal flow. There is normal augmentation response to di stal compression maneuver. IMPRESSION: No deep venous thrombosis of the visualized lower extremity. Reviewed by: Rk Trujillo MD on 02/14/2024 8:50 PM PDT Approved by: Rk Trujillo MD on 02/14/2024 8:50 PM PDT Station ID: [id number]
== END 2024-02-14 07:27 | disposition home or self-care (01) ==
LOC: DI 07:26
PROVIDERS: ATTEND Nurse Practitioner
DX: M79.662 Pain in left lower leg (principal)

== ENCOUNTER 2024-02-27 02:59 | Outpatient (CLI) | payer MEDICARE, MEDICAID | END 2024-02-27 23:59 | disposition critical access hospital (66) | LOC: EMS 02:59 | DX: R07.1 Chest pain on breathing (principal); R05.9 Cough, unspecified; I10 Essential (primary) hypertension; Z99.81 Dependence on supplemental oxygen | CPT/HCPCS: A0425; A0429 ==

== ENCOUNTER 2024-02-27 03:16 | Emergency (ER) | payer MEDICARE, MEDICAID ==
--- NOTE | 2024-02-27 03:14 | ED Physician Documentation ---
PD HPI CHEST PAIN - Stated complaint Stated Complaint: COUGH/CP - History obtained from History obtained from: Patient, EMS - Additional information Additional information: BIBA. Patient c/o 2 days of productive cough and dyspnea. Dyspnea is worse with exertion. He uses low-flow (1 L/min) [place] oxygen at home PRN for asthma/COPD, but occasionally increases to 1.5 L/min. He has not been using his oxygen recently. His cough and dyspnea began 2 days ago and over the past 24 hours he has had constant, waxing and waning midline chest pain that he describes as sharp and radiating to the back. The chest pain is distinctly worse with coughing, and to a lesser degree with deep inspiration. Denies fever. PMHx includes atrial fibrillation, gout, COPD, HTN, DM (noninsulin dependent). EMS notes 96% pulse ox room air. EMS unable to establish IV, no medications given en route. Review of Systems Constitutional: denies: Fever Cardiac: reports: Chest pain / pressure. denies: Palpitations Respiratory: reports: Dyspnea, Cough. denies: Hemoptysis GI: reports: Reviewed and negative PD PAST MEDICAL HISTORY - Past Medical History Past Medical History: Yes Cardiovascular: Congestive heart failure, Atrial fibrillation Respiratory: COPD Endocrine/Autoimmune: Type 2 diabetes - Present Medications Home Medications: Ambulatory Orders Medication Instructions Recorded Confirmed Albuterol 2.5 mg INH Q4H PRN 04/12/21 01/08/23 Doxazosin [Cardura] 4 mg PO DAILY 04/12/21 01/08/23 Gabapentin [Neurontin] 400 mg PO DAILY 04/12/21 01/08/23 Rivaroxaban [Xarelto] 15 mg PO DAILY 04/12/21 01/08/23 Verapamil HCl [Calan Sr] 240 mg PO DAILY 04/12/21 01/08/23 Linagliptin [Tradjenta] 5 mg PO DAILY 05/10/21 01/08/23 Fluticasone Propion/Salmeterol 1 puffs INH BID 01/08/23 01/08/23 [Fluticasone-Salmeterol 250-50] Rosuvastatin Calcium [Crestor] 20 mg PO DAILY 01/08/23 01/08/23 Acetaminophen [Tylenol] 650 mg PO Q4HR PRN tab 01/13/23 Blood-Glucose Meter [Glucometer] 1 each [facility] ACHS #1 each 01/13/23 Cyanocobalamin [Vitamin B-12] 500 mcg PO DAILY #30 tab 01/13/23 Insulin Aspart [NovoLOG] 5 unit SUBQ TIDWM #1 ea 01/13/23 Insulin Glargine [Lantus Solostar] 10 unit SQ BID #1 ea 01/13/23 Ipratropium/Albuterol [Combivent 2 puffs IH Q4H PRN #1 ea 01/13/23 Respimat] Lancet/Gluc Test Strip/[place] 1 each ACHS #1 packet 01/13/23 [Tempo Refill Kit] Montelukast [Singulair] 10 mg PO QPM #30 tab 01/13/23 allopurinoL [Zyloprim] 100 mg PO DAILY #30 tab 01/13/23 guaiFENesin [Mucinex] 600 mg PO BID #14 tab 01/13/23 Blood Sugar Diagnostic [Glucometer 1 each [facility] #120 strip 01/14/23 Strips] Blood-Glucose Meter [Accu-Chek 1 each [facility] #1 each 01/14/23 Guide Monitor System] Ipratropium/Albuterol [Combivent 2 puffs IH TID PRN #1 ea 01/14/23 Respimat] Lancets 1 each [facility] #120 each 01/14/23 methylPREDNISolone [Medrol] 4 mg PO 0800 #15 tablet 01/14/23 Pen Needle, Diabetic [Insulin Pen 1 each TID #100 ea 02/15/23 Needle] Amox/Clav 875/125 [Augmentin 1 tablet PO Q12H 7 Days #14 tablet 02/27/24 875/125 Tab] predniSONE [Deltasone] 40 mg PO DAILY 4 Days #8 tablet 02/27/24 - Allergies Allergies/Adverse Reactions: Allergies Allergy/AdvReac Type Severity Reaction Status Date / Time No Known Drug Allergies Allergy Verified 02/27/24 03:23 PD ED PE NORMAL - Vitals Vital signs reviewed: Yes - General General: Alert and oriented X 3, No acute distress, Well developed/nourished - HEENT HEENT: Moist mucous membranes - Neck Neck: Supple, no meningeal sign - Respiratory Respiratory: No respiratory distress PD ED PE EXPANDED - Cardiac Cardiac: Tachy, Irregularly irregular - Respiratory Respiratory: Rhonchi (scattered rhonchi which shift in location and severity when he coughs (during stethoscopic exam)) Results - Vitals Vitals: Vital Signs - 24 hr 02/27/24 02/27/24 02/27/24 03:20 04:00 05:00 Temperature 37.1 C Heart Rate 119 H 100 105 H Respiratory 24 20 23 Rate Blood Pressure 163/95 H 119/65 O2 Saturation 94 94 02/27/24 02/27/24 02/27/24 05:30 06:00 06:20 Temperature Heart Rate 104 H 103 H 108 H Respiratory 29 H 23 22 Rate Blood Pressure 119/65 112/77 O2 Saturation 91 L 92 02/27/24 02/27/24 06:30 07:00 Temperature Heart Rate 102 H 104 H Respiratory 20 26 H Rate Blood Pressure 121/60 121/71 O2 Saturation 91 L 91 L Oxygen O2 Source Room air - EKG (time done) No standard instances EKG releavant findings:: EKG personally interpreted by author of this note. Relevant findings are: Rate: Rate (enter#) (110) Rhythm: Atrial fibrillation [place]: LAD, Anterior hemiblock Ischemia: Normal ST segments - Labs Labs: Laboratory Tests 02/27/24 02/27/24 02/27/24 04:15 04:20 04:43 WBC 11.0 H RBC 5.33 Hgb 13.2 L Hct 43.0 MCV 80.7 MCH 24.8 L MCHC 30.7 L RDW 14.8 Plt Count 148 MPV 11.4 Neut # (Auto) 7.7 H Lymph # (Auto) 1.3 L [place] # (Auto) 1.9 H Eos # (Auto) 0.0 Baso # (Auto) 0.0 Absolute Nucleated RBC 0.00 Band Neuts % (Manual) Not Reportable Abnorm Lymph % (Manual) Not Reportable Nucleated RBC % 0.0 Neutrophils # (Manual) Not Reportable Lymphocytes # (Manual) Not Reportable Monocytes # (Manual) Not Reportable Eosinophils # (Manual) Not Reportable Basophils # (Manual) Not Reportable Differential Comment MANUAL=AUTO DIFF Platelet Estimate NORMAL (130-450,000) RBC Morph Micro Appear NORMAL APPEARANCE Sodium Potassium Chloride Carbon Dioxide Anion Gap BUN Creatinine Estimated GFR (MDRD) Glucose Calcium Total Bilirubin AST ALT Alkaline Phosphatase Troponin I High Sens 16.7 Total Protein Albumin Globulin Albumin/Globulin Ratio Lipase Nasal Adenovirus (PCR) NOT DETECTED Nasal B. parapertussis DNA (PCR) NOT DETECTED Nasal Coronavir 229E PCR NOT DETECTED Nasal Coronavir HKU1 PCR NOT DETECTED Nasal Coronavir NL63 PCR NOT DETECTED Nasal Coronavir OC43 PCR NOT DETECTED Nasal Enterovir/Rhinovir PCR NOT DETECTED Nasal Influenza B PCR NOT DETECTED Nasal Influenza A PCR NOT DETECTED Nasal Parainfluen 1 PCR NOT DETECTED Nasal Parainfluen 2 PCR NOT DETECTED Nasal Parainfluen 3 PCR NOT DETECTED Nasal Parainfluen 4 PCR NOT DETECTED Nasal RSV (PCR) NOT DETECTED Nasal B.pertussis DNA PCR NOT DETECTED Nasal C.pneumoniae (PCR) NOT DETECTED [place] Human Metapneumo PCR NOT DETECTED Nasal M.pneumoniae (PCR) NOT DETECTED Nasal SARS-CoV-2 (PCR) NOT DETECTED 02/27/24 04:43 WBC RBC Hgb Hct MCV MCH MCHC RDW Plt Count MPV Neut # (Auto) Lymph # (Auto) [place] # (Auto) Eos # (Auto) Baso # (Auto) Absolute Nucleated RBC Band Neuts % (Manual) Abnorm Lymph % (Manual) Nucleated RBC % Neutrophils # (Manual) Lymphocytes # (Manual) Monocytes # (Manual) Eosinophils # (Manual) Basophils # (Manual) Differential Comment Platelet Estimate RBC Morph Micro Appear Sodium 138 Potassium 4.5 Chloride 106 Carbon Dioxide 25 Anion Gap 7.0 BUN 39 H Creatinine 2.0 H Estimated GFR (MDRD) 38 L Glucose 128 H Calcium 9.5 Total Bilirubin 0.7 AST 21 ALT 18 Alkaline Phosphatase 67 Troponin I High Sens Total Protein 8.3 Albumin 4.0 Globulin 4.3 H Albumin/Globulin Ratio 0.9 L Lipase 22 Nasal Adenovirus (PCR) Nasal B. parapertussis DNA (PCR) Nasal Coronavir 229E PCR Nasal Coronavir HKU1 PCR Nasal Coronavir NL63 PCR Nasal Coronavir OC43 PCR Nasal Enterovir/Rhinovir PCR Nasal Influenza B PCR Nasal Influenza A PCR Nasal Parainfluen 1 PCR Nasal Parainfluen 2 PCR Nasal Parainfluen 3 PCR Nasal Parainfluen 4 PCR Nasal RSV (PCR) Nasal B.pertussis DNA PCR Nasal C.pneumoniae (PCR) [place] Human Metapneumo PCR Nasal M.pneumoniae (PCR) Nasal SARS-CoV-2 (PCR) - Rads (name of study) chest xray Relevant Findings:: Prelim report reviewed, See rad report PD Medical Decision Making - ED course Complexity details: reviewed results, re-evaluated patient, considered differential, d/w patient ED course: Pulse ox varies from upper 80s to upper 90s on room air. He is given duoneb, solu-medrol 125mg IV, albuterol neb, and 1 gram IV rocephin for possible infiltrates on CXR. He reports feeling improved after the neb treatments and solu-medrol and is comfortable with d/c home. Return precautions reviewed, advised to contact PCP today to arrange for next available appointment for reevaluation. Respiratory PCR negative. he is in NAD prior to d/c including no respiratory distress, speaking in full sentences. E-prescribed augmentin for possible early pneumonia on cxr, and rx for short course of daily prednisone for COPD exacerbation component. Departure - Departure Disposition: Home, Self Care Clinical Impression: Pneumonia Qualifiers: Pneumonia type: due to unspecified organism Laterality: bilateral Lung lo cation: unspecified part of lung Qualified Code(s): J18.9 - Pneumonia, unspecified organism Chest pain Qualifiers: Chest pain type: unspecified Qualified Code(s): R07.9 - Chest pain, unspecified Condition: Good Instructions: ED Chest Pain Atypical Unkn Cause, ED Pneumonia Adult Prescriptions: Amox/Clav 875/125 [Augmentin 875/125 Tab] 1 tablet PO Q12H 7 Days #14 tablet predniSONE [Deltasone] 40 mg PO DAILY 4 Days #8 tablet Comments: There were no particularly concerning findings on tonight's tests. Your kidney tests were mildly abnormal, but results are similar to your previous kidney tests in our records. The chest x-ray had findings suggestive of early pneumonia; for this, you are given an antibiotic through your IV (ceftriaxone) and I am prescribing a 1-week course of a different antibiotic (Augmentin) to the [facility] pharmacy in [place]. I have also submitted a prescription for a four days of daily steroid (prednisone). Contact your primary care provider's office when they are open later this morning to arrange for the next available appointment for follow- up/reevaluation. Please return immediately to the emergency department if your symptoms worsen in any way or if you develop new/concerning signs/symptoms (such as fever, increasing chest pain, increasing difficulty breathing). Forms: PCP List Discharge Date/Time: 02/27/24 07:25
[2024-02-27] MEDS: IPRATROPIUM/ALBUTEROL 3 ML NEB INH STA (04:00)
[2024-02-27 04:59] LABS: BASOPHILS % (AUTO) 0.2 %; EOSINOPHILS % (AUTO) 0.2 %; HGB - HEMOGLOBIN 13.2 g/dL (14.0-18.0); LYMPHOCYTES # (AUTO) 1.3 10^3/uL (1.5-3.5); LYMPHOCYTES % (AUTO) 12.1 %; MEAN CORPUSCULAR HEMOGLOBIN 24.8 pg (27.0-31.0); MEAN CORPUSCULAR HGB CONC 30.7 g/dL (32.0-36.0); MEAN CORPUSCULAR VOLUME 80.7 fL (80.0-94.0); MEAN PLATELET VOLUME 11.4 fL (7.4-11.4); MONOCYTES # (AUTO) 1.9 10^3/uL (0.0-1.0); MONOCYTES % (AUTO) 17.4 %; NEUTROPHILS # (AUTO) 7.7 10^3/uL (1.5-6.6); NEUTROPHILS % (AUTO) 69.7 %; PLT - PLATELET COUNT 148 10^3/uL (130-450); RED BLOOD COUNT 5.33 10^6/uL (4.70-6.10); RED CELL DISTRIBUTION WIDTH 14.8 % (12.0-15.0)
[2024-02-27] MEDS: methylPREDNISolone SUCCINATE 125 MG/2 ML VIAL IVP STA (04:59)
[2024-02-27] MEDS: methylPREDNISolone SUCCINATE 125 MG/2 ML VIAL IVP ONE (05:00)
[2024-02-27 05:11] LABS: ALBUMIN/GLOBULIN RATIO 0.9 (1.0-2.2); BILIRUBIN,TOTAL 0.7 mg/dL (0.2-1.0); CALCIUM 9.5 mg/dL (8.5-10.3); POTASSIUM 4.5 mmol/L (3.5-4.5); TOTAL PROTEIN 8.3 g/dL (6.4-8.9)
[2024-02-27 05:34] LABS: B. PARAPERTUSSIS- RESP PCR PAN NOT DETECTED; B. PERTUSSIS- RESP PCR PANEL NOT DETECTED; C. PNEUMONIAE- RESP PCR PANEL NOT DETECTED; CORONAVIRUS 229E-RESP PCR NOT DETECTED; CORONAVIRUS HKU1-RESP PCR NOT DETECTED; CORONAVIRUS NL63-RESP PCR NOT DETECTED; CORONAVIRUS OC43-RESP PCR NOT DETECTED; HUMAN METAPNEUMOVIRUS NOT DETECTED; INFLUENZA A- RESP PCR PANEL NOT DETECTED; INFLUENZA B - RESP PCR PANEL NOT DETECTED; M. PNEUMONIAE- RESP PCR PANEL NOT DETECTED; PARAINFLUENZA VIRUS 1 NOT DETECTED; PARAINFLUENZA VIRUS 2 NOT DETECTED; PARAINFLUENZA VIRUS 3 NOT DETECTED; PARAINFLUENZA VIRUS 4 NOT DETECTED; RHINOVIRUS/ENTEROVIRUS NOT DETECTED; RSV- RESP PCR PANEL NOT DETECTED; SARS-CoV-2 -RESP PCR PANEL NOT DETECTED
[2024-02-27 05:38] LABS: DIFFERENTIAL COMMENT MANUAL=AUTO DIFF; PLATELET ESTIMATE, MANUAL NORMAL (130-450,000) (NORMAL); RBC MORPHOLOGY (MULTIPLE) NORMAL APPEARANCE (NORMAL)
[2024-02-27] MEDS: ALBUTEROL NEB 2.5 MG/3 ML INH STA (06:19)
[2024-02-27] MEDS ORDERED: cefTRIAXone 1 GM VIAL ONE (06:25)
[2024-02-27] MEDS: cefTRIAXone 1 GM in SODIUM CHLORIDE 0.9% MINIBAG 100 ML IV STA (06:28)
[2024-02-27 06:41] VITALS: O2SAT 91
[2024-02-27 07:28] VITALS: BP 121/71
--- NOTE | 2024-02-27 08:54 | XRAY Report ---
PROCEDURE: Chest 2V INDICATIONS: chest pain, dyspnea, cough TECHNIQUE: 2 views of the chest were acquired. COMPARISON: 01/08/2023 FINDINGS: Surgical changes and devices: None. Lungs and pleura: Small right pleural effusion. Bilateral lower lung field airspace opacities. Mediastinum: Mediastinal contours appear normal. Heart size is normal. Bones and chest wall: No suspicious bony lesions. Overlying soft tissues appear unremarkable. IMPRESSION: Small right pleural effusion and bilateral airspace opacities, concerning for pneumonia. Reviewed by: Luís Smith MD on 02/27/2024 8:53 AM PDT Approved by: Luís Smith MD on 02/27/2024 8:53 AM PDT Station ID: [id number]
== END 2024-02-27 07:25 | disposition home or self-care (01) ==
LOC: EDUNIT# → ED 03:16
DX: R07.9 Chest pain, unspecified (principal); J18.9 Pneumonia, unspecified organism; I48.91 Unspecified atrial fibrillation; E11.9 Type 2 diabetes mellitus without complications; Z79.4 Long term (current) use of insulin; Z79.01 Long term (current) use of anticoagulants; Z11.52 Encounter for screening for COVID-19
CPT/HCPCS: 36415; 80053; 83690; 84484; 85025; 87633; 93005; 94640; 94664; 96365; 96375; 99284

== ENCOUNTER 2024-05-20 08:56 | Outpatient (CLI) | payer MEDICARE, MEDICAID ==
[2024-05-20 12:55] LABS: CALCIUM 9.3 mg/dL (8.5-10.3); CREATININE 1.6 mg/dL (0.6-1.3); POTASSIUM 3.9 mmol/L (3.5-4.5)
[2024-05-20 13:23] LABS: ESTIMATED AVERAGE GLUCOSE 137 mg/dL (70-100); HEMOGLOBIN A1c% 6.4 % (4.27-6.07)
== END 2024-05-20 08:57 | disposition home or self-care (01) ==
LOC: LAB.N 08:56
DX: E11.22 Type 2 diabetes mellitus with diabetic chronic kidney disease (principal)
CPT/HCPCS: 36415; 80048; 83036; 83880